=== PATIENT | female | born 1965 | race Two or more races ===

== ENCOUNTER 2019-06-21 14:55 | Outpatient (CLI) | payer MEDICARE, SELFPAY ==
--- NOTE | 2019-06-21 15:30 | XR_ITS ---
WS: [id number] RIGHT CLAVICLE TECHNIQUE: 2 views of the right clavicle. CLINICAL INFORMATION: CLAVICLE PAIN COMPARISON: FINDINGS: Interval removal plate and screw fixation right clavicle. Healed right clavicular fracture with callu s formation. Normal anatomic alignment. Normal AC joint. Intramedullary clavicular fixation nicole XR/[place] [id number] IMPRESSION: Healed right clavicular fracture with intramedullary clavicular fixation nicole
== END 2019-06-21 14:56 | disposition home or self-care (01) ==
LOC: WPI 15:03
PROVIDERS: PCP Nurse Practitioner Family; Visit Provider Nurse Practitioner Family
DX: M25.511 Pain in right shoulder (principal); Z87.81 Personal history of (healed) traumatic fracture
CPT/HCPCS: 73000

== ENCOUNTER → 2019-07-03 12:33 | Outpatient (BNVA) | payer MEDICARE, SELFPAY | PROVIDERS: PCP Nurse Practitioner Family; Visit Provider Nurse Practitioner | DX: F41.1 Generalized anxiety disorder (principal); F42.9 Obsessive-compulsive disorder, unspecified; F60.7 Dependent personality disorder | CPT/HCPCS: 90832; 99214; 99215 ==

== ENCOUNTER 2019-07-30 09:40 | Outpatient (CLI) | payer MEDICARE, SELFPAY ==
--- NOTE | 2019-07-30 09:50 | XR_ITS ---
WS: [id number] RIGHT HAND: 3 VIEW(S) TECHNIQUE: PA, oblique and lateral. HISTORY: THUMB PAIN, RIGHT COMPARISON: None available. No acute fracture or dislocation. No soft tissue or bone abnormality. Mild interphalangeal joint space narrowing. XR/XR hand RT min 3V* [id number] IMPRESSION: Negative RIGHT thumb. No fractures or significant arthritis.
== END 2019-07-30 09:41 | disposition home or self-care (01) ==
LOC: RADWPI 09:44
PROVIDERS: PCP Nurse Practitioner Family; Visit Provider Nurse Practitioner Family
DX: M79.644 Pain in right finger(s) (principal)
CPT/HCPCS: 73130

== ENCOUNTER → 2019-09-03 14:19 | Outpatient (BNVA) | payer MEDICARE, SELFPAY | PROVIDERS: PCP Nurse Practitioner Family; Visit Provider Nurse Practitioner | DX: F42.9 Obsessive-compulsive disorder, unspecified (principal); F60.7 Dependent personality disorder; F41.1 Generalized anxiety disorder | CPT/HCPCS: 99213 ==

== ENCOUNTER 2019-10-21 11:16 | Outpatient (CLI) | payer MEDICARE, SELFPAY ==
[2019-10-21 11:59] LABS: Basophils % 0.5 %; Eosinophils # 0.1 10^3/uL (0.0-0.8); Eosinophils % 3.3 %; Hematocrit 40.4 % (37.0-47.0); Hemoglobin 12.8 g/dL (11.5-15.3); Lymphocytes # 1.7 10^3/uL (0.8-4.8); Lymphocytes % 40.2 %; Mean Corpuscular HGB Conc 31.7 g/dL (30.0-36.0); Mean Corpuscular Hemoglobin 30.3 pg (28.0-34.0); Mean Corpuscular Volume 95.5 fL (81-99); Mean Platelet Volume 10.5 fL (7.4-10.4); Monocytes # 0.3 10^3/uL (0.2-0.9); Neutrophils # 2.1 10^3/uL (1.8-7.7); Neutrophils % 48.5 %; Nucleated Red Blood Cells % 0 %; Platelet Count 305 10^3/cmm (130-400); Red Blood Count 4.23 10^6/uL (4.1-5.3); Red Cell Distribution Width 13.7 % (12.1-15.1); White Blood Count 4.3 10^3/uL (4.0-10.0)
[2019-10-21 12:08] LABS: Albumin Level 4.4 g/dL (3.5-5.2); Anion Gap 13.7 (5-19); Blood Urea Nitrogen 12 mg/dL (6-20); Calcium 10.1 mg/dL (8.5-10.5); Carbon Dioxide 26 mmol/L (22-29); Chloride 105 mmol/L (98-107); Glomerular Filtration Rate 58.2 mL/min (90-130); Glucose 83 mg/dL (65-115); Phosphorus 2.6 mg/dL (2.5-4.5); Potassium 3.7 mmol/L (3.5-5.1); Sodium 141 mmol/L (136-145)
[2019-10-21 12:24] LABS: Creatinine Urine, Random 84 mg/dL (28-217)
[2019-10-21 12:38] LABS: Microalbum Creatinine Ratio Ur 12 mg/dL (0-20); Microalbumin Random Urine 1 ug/dL (0-20)
[2019-10-21 13:55] LABS: Calcium 10.3 mg/dL (8.5-10.5); Parathyroid Hormone 60.3 pg/mL (15-65)
== END 2019-10-21 11:17 | disposition home or self-care (01) ==
LOC: LAB 11:19
PROVIDERS: PCP Nurse Practitioner Family; Visit Provider Internal Medicine Nephrology
DX: N18.3 Chronic kidney disease, stage 3 (moderate) (principal)
CPT/HCPCS: 80069; 82044; 82310; 83970; 85025

== ENCOUNTER → 2019-10-30 08:30 | Outpatient (BNVA) | payer MEDICARE, SELFPAY | PROVIDERS: PCP Nurse Practitioner Family; Visit Provider Nurse Practitioner | DX: F41.1 Generalized anxiety disorder (principal); F60.7 Dependent personality disorder; F42.9 Obsessive-compulsive disorder, unspecified; F43.12 Post-traumatic stress disorder, chronic | CPT/HCPCS: 99213 ==

== ENCOUNTER → 2020-02-06 07:31 | Outpatient (BNVA) | payer MEDICARE, SELFPAY | PROVIDERS: PCP Nurse Practitioner Family; Visit Provider Nurse Practitioner | DX: F42.9 Obsessive-compulsive disorder, unspecified (principal); F60.7 Dependent personality disorder; F41.1 Generalized anxiety disorder | CPT/HCPCS: 99213 ==

== ENCOUNTER 2020-04-04 03:24 | Emergency (ER) | payer MEDICARE, SELFPAY ==
[2020-04-04] VITALS (9 sets, daily range): BP systolic 107–143; BP diastolic 75–87; PULSE 65–100; RESP 18–26; TEMP 36.7; O2SAT 93–100; BMI 30.6
--- NOTE | 2020-04-04 03:39 | XRR_ITS ---
PROCEDURE INFORMATION: Exam: XR Chest, 1 View Exam date and time: 04/04/2020 3:42 AM Age: 54 years old Clinical indication: Shortness of breath; Chest pain; Prior surgery; Surgery type: RT clavicle; Additional info: Cp TECHNIQUE: Imaging protocol: XR of the chest Views: 1 view. COMPARISON: CR Chest 2 views* [id number] 05/10/2017 10:18 AM FINDINGS: Lungs: There is mild prominence of the pulmonary vasculature and some increased interstitial markings present in the lower hemithoraces, findings could represent mild pulmonary edema. Pleural space: Unremarkable. No pleural effusion. No pneumothorax. Heart/Mediastinum: Unremarkable. No cardiomegaly. Bones/joints: An intramedullary nicole is seen within the right clavicle. XR/XR chest 1V portable [id number] IMPRESSION: Mild prominence of the pulmonary vasculature and some increased interstitial markings present bilaterally may represent pulmonary edema.
--- NOTE | 2020-04-04 03:40 | ECG_ITS ---
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 Measurements Intervals [place] Rate: 86 P: 36 OK: 162 QRS: 53 QRSD: 94 T: 41 QT: 385 QTc: 463 Interpretive Statements SINUS RHYTHM POSSIBLE ANTERIOR MYOCARDIAL INFARCTION [30 ms Q WAVE IN V3/V4, OR R < 0.2 mV IN V4], OF INDETERMINATE AGE Compared to ECG 05/10/2017 10:08:46 No significant changes Electronically Signed On 04-04-2020 16:05:58 CDT by Susan Green M.D. [id number]
[2020-04-04 03:46] LABS: Basophils % 0.3 %; Eosinophils # 0.1 10^3/uL (0.0-0.8); Eosinophils % 2.1 %; Hematocrit 39.2 % (37.0-47.0); Hemoglobin 13.3 g/dL (11.5-15.3); Lymphocytes # 2.1 10^3/uL (0.8-4.8); Mean Corpuscular HGB Conc 33.9 g/dL (30.0-36.0); Mean Corpuscular Hemoglobin 31.1 pg (28.0-34.0); Mean Corpuscular Volume 91.8 fL (81-99); Mean Platelet Volume 10.1 fL (7.4-10.4); Monocytes # 0.6 10^3/uL (0.2-0.9); Monocytes % 9.5 %; Neutrophils # 3.35 10^3/uL (1.8-7.7); Neutrophils % 53.9 %; Nucleated Red Blood Cells % 0 %; Platelet Count 377 10^3/cmm (130-400); Red Blood Count 4.27 10^6/uL (4.1-5.3); Red Cell Distribution Width 13.9 % (12.1-15.1); White Blood Count 6.2 10^3/uL (4.0-10.0)
--- NOTE | 2020-04-04 03:55 | W.ED.GENADLT ---
Documented by User: Jorden Templeton DO 04/04/20 18:29 HPI - General Adult General: Chief complaint: General Medical Stated complaint: Multiple Complaints/CP, Back Pain, RUSSELL Time Seen by Provider: 04/04/20 03:39 History of Present Illness: HPI narrative: 4-year-old female presenting with multiple complaints this morning. She states that she had a headache earlier in the day for which she took a migraine shot . She has been battling a headache. Now she states she has more widespread pain, especially in the right side of her chest. There is pain with breathing. No fever or cough Onset (ago): hour(s) Location: head and chest Radiation: non-radiation Severity: severe Quality: stabbing and aching Pain Consistency: constant Associated symptoms: Reports chest pain, dyspnea, headache(s) and nausea; Deny cough, diaphoresis, fevers/chills or vomiting Review of Systems Const: Denies: fever(s) or diaphoresis Card: Reports: chest pain Resp: Reports: dyspnea GI: Reports: nausea; Denies: vomiting : Denies: difficulty voiding or dysuria Neuro: Reports: headache(s) and dizziness; Denies: weakness in extremities PFSH ED PFSH: Medical History (Updated 04/04/20 @ 08:12 by Jaime Crystal DO) Dependent personality disorder Generalized anxiety disorder Obsessive-compulsive disorder, unspecified Social History (Updated 07/03/19 @ 12:57 by Macrina Olivares LPN) Smoking and tobacco status: never smoked Physical Exam Const: GENERAL APPEARANCE: in distress and anxious; not cooperative ORIENTATION/CONSCIOUSNESS: Yes oriented to person, Yes oriented to place and Yes oriented to time HENMT: COMMON NORMALS: normocephalic, external ears normal and Normal external nose present HEAD & SCALP: normocephalic FACE & SINUS: normal facial exam NOSE: Normal external nose present and No nasal discharge present EXTERNAL EAR: Yes external ears normal Eye: COMMON NORMALS: Equal, round and reactive pupils present, EOMs intact bilaterally and conjunctivae normal EYELID: eyelids normal CONJUNCTIVA: Yes conjunctivae normal PUPIL: Yes Equal, round and reactive pupils present Neck/C-Spine: GENERAL: No tracheal deviation Chest: COMMONS NORMALS: normal inspection of the chest CHEST: No tenderness Resp: COMMON NORMALS: clear to auscultation bilaterally EFFORT & INSPECTION: No tachypneic, No respiratory distress, No retractions, No uses accessory muscles and No tracheal deviation AUSCULTATION: clear to auscultation bilaterally, no rhonchi, no wheezes and lung sounds not diminished Cardio: COMMON NORMALS: regular rate and regular rhythm RATE: regular rate RHYTHM: regular rhythm HEART SOUNDS: no murmurs PERIPHERAL PULSES: radial pulses present GI: INSPECTION: No abdominal distension AUSCULTATION: No Hyperactive bowel sounds present and No Hypoactive bowel sounds present PALPATION: No Guarding due to palpation present (GI) and No Rigid due to palpation PERCUSSION: no dullness to percussion and no tympanic to percussion Neuro: SENSORIUM/ORIENTATION: Yes oriented to person, Yes oriented to place and Yes oriented to time Psych: COMMON NORMALS: mental status grossly normal Skin: COMMON NORMALS: no rashes or lesions noted GENERAL SKIN EXAM: no rashes or lesions noted Course Vital Signs: Vital signs: Vital Signs Temperature 98.0 F 04/04/20 03:29 Pulse Rate 66 04/04/20 08:45 Respiratory Rate 18 04/04/20 08:45 Blood Pressure 107/75 04/04/20 08:45 Pulse Oximetry 100 04/04/20 08:45 MDM - General Adult MDM Narrative: Medical decision making narrative: 54-year-old lady presenting with right-sided, poorly localized chest pain. She is very anxious. Pain is incompletely reproducible. Her EKG is normal, showing a normal sinus rhythm with no ST changes. Her chest x-ray is negative. Her white blood cell count is 6.2. Her potassium is significantly low at 3.0. She is repleted here. Her troponin is negative at 0 and 2 hours she was checked out to Dr. Reddy at shift change to follow-up on the second troponin. Lab Data: Labs: Lab Results 04/04/20 04/04/20 04/04/20 Range/Units 03:30 03:30 03:30 WBC 6.2 (4.0-10.0) 10^3/ uL RBC 4.27 (4.1-5.3) 10^6/u L Hgb 13.3 (11.5-15.3) g/dL Hct 39.2 (37.0-47.0) % MCV 91.8 (81-99) fL MCH 31.1 (28.0-34.0) pg MCHC 33.9 (30.0-36.0) g/dL RDW 13.9 (12.1-15.1) % Plt Count 377 (130-400) 10^3/c mm MPV 10.1 (7.4-10.4) fL Neut % (Auto) 53.9 % Lymph % (Auto) 34.0 % [place] % (Auto) 9.5 % Eos % (Auto) 2.1 % Baso % (Auto) 0.3 % Neut # (Auto) 3.35 (1.8-7.7) 10^3/u L Lymph # (Auto) 2.1 (0.8-4.8) 10^3/u L [place] # (Auto) 0.6 (0.2-0.9) 10^3/u L Eos # (Auto) 0.1 (0.0-0.8) 10^3/u L Baso # (Auto) 0.0 (0.0-0.1) 10^3/u L Nucleated RBC % (a uto) 0 % Nucleated RBCs # 0.0 /100WBC D-Dimer 0.34 (0-0.59) ug/mIFE U Sodium 141 (136-145) mmol/L Potassium 3.0 L (3.5-5.1) mmol/L Chloride 104 (98-107) mmol/L Carbon Dioxide 21 L (22-29) mmol/L Anion Gap 19.0 (5-19) BUN 16 (6-20) mg/dL Creatinine 1.2 H (0.5-0.9) mg/dL GFR Calculation 47.0 L (90-130) mL/min Glucose 102 (65-115) mg/dL Calculated Osmolal ity 293 (285-295) mOsm/k g Lactate (0.5-2.2) mmol/L Calcium 10.4 (8.5-10.5) mg/dL Total Bilirubin 0.3 (0.15-1.2) mg/dL AST 43 H (0-32) U/L ALT 46 H (0-33) U/L Alkaline Phosphata se 115 H (35-105) IU/L Creatine Kinase 424 H* (26-192) U/L Troponin T Baselin e (0-10) ng/L Troponin T 120 Min [place] (0-10) ng/L Delta Troponin T (0-10) ABS# C-Reactive Protein 7.6 H (0.0-4.9) mg/L Total Protein 7.2 (6.6-8.7) g/dL Albumin 4.7 (3.5-5.2) g/dL Globulin 2.5 (1.3-4.6) g/dL Procalcitonin 0.06 (0-0.5) ng/mL HCG, Qual (Negative) Urine Color (Yellow) Urine Appearance (CLEAR) Urine pH (5-7) Ur Specific Gravit y (1.005-1.030) Urine Protein (Negative) Urine Glucose (UA) (Normal) Urine Ketones (Negative) Urine Blood (Negative) Urine Nitrate (Negative) Urine Bilirubin (Negative) Urine Urobilinogen (Negative) mg/dL Ur Leukocyte Nevae[place] ase (Negative) Urine RBC (0-2) /hpf Urine WBC (0-5) /hpf Ur Squamous Epith Cells (0-5) /hpf Amorphous Sediment /hpf Urine Bacteria (NONE) /hpf Urine Opiates Scre en (Negative) ng/mL Ur Barbiturates Sc reen (Negative) ng/mL Ur Phencyclidine S crn (Negative) ng/mL Ur Amphetamines Sc reen (Negative) ng/mL U Benzodiazepines Scrn (Negative) ng/mL Urine Cocaine Scre en (Negative) ng/mL U Marijuana (THC) Screen (Negative) ng/mL 04/04/20 04/04/20 04/04/20 Range/Units 03:30 04:04 04:04 WBC (4.0-10.0) 10^3/ uL RBC (4.1-5.3) 10^6/u L Hgb (11.5-15.3) g/dL Hct (37.0-47.0) % MCV (81-99) fL MCH (28.0-34.0) pg MCHC (30.0-36.0) g/dL RDW (12.1-15.1) % Plt Count (130-400) 10^3/c mm MPV (7.4-10.4) fL Neut % (Auto) % Lymph % (Auto) % [place] % (Auto) % Eos % (Auto) % Baso % (Auto) % Neut # (Auto) (1.8-7.7) 10^3/u L Lymph # (Auto) (0.8-4.8) 10^3/u L [place] # (Auto) (0.2-0.9) 10^3/u L Eos # (Auto) (0.0-0.8) 10^3/u L Baso # (Auto) (0.0-0.1) 10^3/u L Nucleated RBC % (a uto) % Nucleated RBCs # /100WBC D-Dimer (0-0.59) ug/mIFE U Sodium (136-145) mmol/L Potassium (3.5-5.1) mmol/L Chloride (98-107) mmol/L Carbon Dioxide (22-29) mmol/L Anion Gap (5-19) BUN (6-20) mg/dL Creatinine (0.5-0.9) mg/dL GFR Calculation (90-130) mL/min Glucose (65-115) mg/dL Calculated Osmolal ity (285-295) mOsm/k g Lactate (0.5-2.2) mmol/L Calcium (8.5-10.5) mg/dL Total Bilirubin (0.15-1.2) mg/dL AST (0-32) U/L ALT (0-33) U/L Alkaline Phosphata se (35-105) IU/L Creatine Kinase (26-192) U/L Troponin T Baselin e 6 (0-10) ng/L Troponin T 120 Min [place] (0-10) ng/L Delta Troponin T (0-10) ABS# C-Reactive Protein (0.0-4.9) mg/L Total Protein (6.6-8.7) g/dL Albumin (3.5-5.2) g/dL Globulin (1.3-4.6) g/dL Procalcitonin (0-0.5) ng/mL HCG, Qual Negative (Negative) Urine Color Yellow (Yellow) Urine Appearance Sl cloudy A (CLEAR) Urine pH 7 (5-7) Ur Specific Gravit y 1.010 (1.005-1.030) Urine Protein Neg (Negative) Urine Glucose (UA) Norm (Normal) Urine Ketones Negative (Negative) Urine Blood 2+ H (Negative) Urine Nitrate Negative (Negative) Urine Bilirubin Neg (Negative) Urine Urobilinogen Norm (Negative) mg/dL Ur Leukocyte [place]ae[place] ase Negative (Negative) Urine RBC 0-4 H (0-2) /hpf Urine WBC 0-4 H (0-5) /hpf Ur Squamous Epith Cells 5-10 H (0-5) /hpf Amorphous Sediment 3+ /hpf Urine Bacteria Trace (NONE) /hpf Urine Opiates Scre en (Negative) ng/mL Ur Barbiturates Sc reen (Negative) ng/mL Ur Phencyclidine S crn (Negative) ng/mL Ur Amphetamines Sc reen (Negative) ng/mL U Benzodiazepines Scrn (Negative) ng/mL Urine Cocaine Scre en (Negative) ng/mL U Marijuana (THC) Screen (Negative) ng/mL 04/04/20 04/04/20 04/04/20 Range/Units 04:04 04:11 06:12 WBC (4.0-10.0) 10^3/ uL RBC (4.1-5.3) 10^6/u L Hgb (11.5-15.3) g/dL Hct (37.0-47.0) % MCV (81-99) fL MCH (28.0-34.0) pg MCHC (30.0-36.0) g/dL RDW (12.1-15.1) % Plt Count (130-400) 10^3/c mm MPV (7.4-10.4) fL Neut % (Auto) % Lymph % (Auto) % [place] % (Auto) % Eos % (Auto) % Baso % (Auto) % Neut # (Auto) (1.8-7.7) 10^3/u L Lymph # (Auto) (0.8-4.8) 10^3/u L [place] # (Auto) (0.2-0.9) 10^3/u L Eos # (Auto) (0.0-0.8) 10^3/u L Baso # (Auto) (0.0-0.1) 10^3/u L Nucleated RBC % (a uto) % Nucleated RBCs # /100WBC D-Dimer (0-0.59) ug/mIFE U Sodium (136-145) mmol/L Potassium (3.5-5.1) mmol/L Chloride (98-107) mmol/L Carbon Dioxide (22-29) mmol/L Anion Gap (5-19) BUN (6-20) mg/dL Creatinine (0.5-0.9) mg/dL GFR Calculation (90-130) mL/min Glucose (65-115) mg/dL Calculated Osmolal ity (285-295) mOsm/k g Lactate 2.7 H (0.5-2.2) mmol/L Calcium (8.5-10.5) mg/dL Total Bilirubin (0.15-1.2) mg/dL AST (0-32) U/L ALT (0-33) U/L Alkaline Phosphata se (35-105) IU/L Creatine Kinase (26-192) U/L Troponin T Baselin e (0-10) ng/L Troponin T 120 Min [place] 6.00 (0-10) ng/L Delta Troponin T 0 (0-10) ABS# C-Reactive Protein (0.0-4.9) mg/L Total Protein (6.6-8.7) g/dL Albumin (3.5-5.2) g/dL Globulin (1.3-4.6) g/dL Procalcitonin (0-0.5) ng/mL HCG, Qual (Negative) Urine Color (Yellow) Urine Appearance (CLEAR) Urine pH (5-7) Ur Specific Gravit y (1.005-1.030) Urine Protein (Negative) Urine Glucose (UA) (Normal) Urine Ketones (Negative) Urine Blood (Negative) Urine Nitrate (Negative) Urine Bilirubin (Negative) Urine Urobilinogen (Negative) mg/dL Ur Leukocyte Nevae[place] ase (Negative) Urine RBC (0-2) /hpf Urine WBC (0-5) /hpf Ur Squamous Epith Cells (0-5) /hpf Amorphous Sediment /hpf Urine Bacteria (NONE) /hpf Urine Opiates Scre en Negative (Negative) ng/mL Ur Barbiturates Sc reen Negative (Negative) ng/mL Ur Phencyclidine S crn Negative (Negative) ng/mL Ur Amphetamines Sc reen Negative (Negative) ng/mL U Benzodiazepines Scrn Negative (Negative) ng/mL Urine Cocaine Scre en Negative (Negative) ng/mL U Marijuana (THC) Screen Negative (Negative) ng/mL 04/04/20 Range/Units 07:17 WBC (4.0-10.0) 10^3/ uL RBC (4.1-5.3) 10^6/u L Hgb (11.5-15.3) g/dL Hct (37.0-47.0) % MCV (81-99) fL MCH (28.0-34.0) pg MCHC (30.0-36.0) g/dL RDW (12.1-15.1) % Plt Count (130-400) 10^3/c mm MPV (7.4-10.4) fL Neut % (Auto) % Lymph % (Auto) % [place] % (Auto) % Eos % (Auto) % Baso % (Auto) % Neut # (Auto) (1.8-7.7) 10^3/u L Lymph # (Auto) (0.8-4.8) 10^3/u L [place] # (Auto) (0.2-0.9) 10^3/u L Eos # (Auto) (0.0-0.8) 10^3/u L Baso # (Auto) (0.0-0.1) 10^3/u L Nucleated RBC % (a uto) % Nucleated RBCs # /100WBC D-Dimer (0-0.59) ug/mIFE U Sodium (136-145) mmol/L Potassium (3.5-5.1) mmol/L Chloride (98-107) mmol/L Carbon Dioxide (22-29) mmol/L Anion Gap (5-19) BUN (6-20) mg/dL Creatinine (0.5-0.9) mg/dL GFR Calculation (90-130) mL/min Glucose (65-115) mg/dL Calculated Osmolal ity (285-295) mOsm/k g Lactate 1.1 (0.5-2.2) mmol/L Calcium (8.5-10.5) mg/dL Total Bilirubin (0.15-1.2) mg/dL AST (0-32) U/L ALT (0-33) U/L Alkaline Phosphata se (35-105) IU/L Creatine Kinase (26-192) U/L Troponin T Baselin e (0-10) ng/L Troponin T 120 Min [place] (0-10) ng/L Delta Troponin T (0-10) ABS# C-Reactive Protein (0.0-4.9) mg/L Total Protein (6.6-8.7) g/dL Albumin (3.5-5.2) g/dL Globulin (1.3-4.6) g/dL Procalcitonin (0-0.5) ng/mL HCG, Qual (Negative) Urine Color (Yellow) Urine Appearance (CLEAR) Urine pH (5-7) Ur Specific Gravit y (1.005-1.030) Urine Protein (Negative) Urine Glucose (UA) (Normal) Urine Ketones (Negative) Urine Blood (Negative) Urine Nitrate (Negative) Urine Bilirubin (Negative) Urine Urobilinogen (Negative) mg/dL Ur Leukocyte Nevae[place] ase (Negative) Urine RBC (0-2) /hpf Urine WBC (0-5) /hpf Ur Squamous Epith Cells (0-5) /hpf Amorphous Sediment /hpf Urine Bacteria (NONE) /hpf Urine Opiates Scre en (Negative) ng/mL Ur Barbiturates Sc reen (Negative) ng/mL Ur Phencyclidine S crn (Negative) ng/mL Ur Amphetamines Sc reen (Negative) ng/mL U Benzodiazepines Scrn (Negative) ng/mL Urine Cocaine Scre en (Negative) ng/mL U Marijuana (THC) Screen (Negative) ng/mL Discharge Plan Discharge Patient Disposition: Home Clinical Impression: Pleurisy Condition: Stable Prescriptions: New hydrocodone-acetaminophen 5-325 mg tablet 1 tab PO Q6H PRN (Reason: pain) Qty: 15 RF: 0 Medrol (John) 4 mg tablets,dose pack See Rx Instructions .ROUTE .COMPLEX Qty: 21 RF: 0 No Action allopurinol 100 mg tablet 100 mg PO DAILY RF: 0 cyclobenzaprine 10 mg tablet 10 mg PO DAILY PRNRF: 0 ropinirole 2 mg tablet extended release 24 hr 2 mg PO BID RF: 0 sumatriptan succinate [Imitrex] 6 mg/0.5 mL solution 6 mg SUBCUT ONCE PRNRF: 0 furosemide [Lasix] 40 mg tablet 40 mg PO QAM RF: 0 lamotrigine [Lamictal] 100 mg tablet 150 mg PO DAILY Qty: 135 RF: 0 clonazepam 0.5 mg tablet 0.5 mg PO BID Qty: 60 RF: 1 aripiprazole [Abilify] 10 mg tablet 10 mg PO DAILY Qty: 90 RF: 0 fluoxetine [Prozac] 40 mg capsule 40 mg PO QAM Qty: 90 RF: 0 trazodone 50 mg tablet 50 mg PO .hs Qty: 30 RF: 1 Discharge Orders: Discharge Order (Routine); Ordered 04/04/20 Ordered By: Jaime Crystal Referrals: Priyank Stafford NP [Primary Care Provider] - Discharge Diet: Usual diet Discharge Activity: Increase activity as tolerated Activity Restrictions/Additional Instructions: Return if you have further problems. Follow-up with your primary care doctor in the next 3 to 4 days. Discharge Date/Time: 04/04/20 08:47 Sign Out Sign Out Data: Patient Sign Out occurred on 04/04/20 at 05:23. Patient's care was discussed, and care was transferred from to Jaime Crystal DO. Coding Level of Care Code ED Client Relationship Consultant for Chg Fwd Exam Comprehensive Documented by User: Jaime Crystal DO 04/06/20 06:40 HPI - General Adult General: Chief complaint: General Medical Stated complaint: Multiple Complaints/CP, Back Pain, RUSSELL Time Seen by Provider: 04/04/20 03:39 PFSH ED PFSH: Medical History (Updated 04/04/20 @ 08:12 by Jaime Crystal DO) Dependent personality disorder Generalized anxiety disorder Obsessive-compulsive disorder, unspecified Social History (Updated 07/03/19 @ 12:57 by Macrina Olivares LPN) Smoking and tobacco status: never smoked Course Vital Signs: Vital signs: Vital Signs Temperature 98.0 F 04/04/20 03:29 Pulse Rate 66 04/04/20 08:45 Respiratory Rate 18 04/04/20 08:45 Blood Pressure 107/75 04/04/20 08:45 Pulse Oximetry 100 04/04/20 08:45 MDM - General Adult MDM Narrative: Medical decision making narrative: Troponin negative. Patient has continued pain that is worse with deep inspiration on the right side. Will discharge home with pain medications Medrol Dosepak and have her follow-up with her doctor early next week return if worsens. Lab Data: Labs: Lab Results 04/04/20 04/04/20 04/04/20 Range/Units 03:30 03:30 03:30 WBC 6.2 (4.0-10.0) 10^3/ uL RBC 4.27 (4.1-5.3) 10^6/u L Hgb 13.3 (11.5-15.3) g/dL Hct 39.2 (37.0-47.0) % MCV 91.8 (81-99) fL MCH 31.1 (28.0-34.0) pg MCHC 33.9 (30.0-36.0) g/dL RDW 13.9 (12.1-15.1) % Plt Count 377 (130-400) 10^3/c mm MPV 10.1 (7.4-10.4) fL Neut % (Auto) 53.9 % Lymph % (Auto) 34.0 % [place] % (Auto) 9.5 % Eos % (Auto) 2.1 % Baso % (Auto) 0.3 % Neut # (Auto) 3.35 (1.8-7.7) 10^3/u L Lymph # (Auto) 2.1 (0.8-4.8) 10^3/u L [place] # (Auto) 0.6 (0.2-0.9) 10^3/u L Eos # (Auto) 0.1 (0.0-0.8) 10^3/u L Baso # (Auto) 0.0 (0.0-0.1) 10^3/u L Nucleated RBC % (a uto) 0 % Nucleated RBCs # 0.0 /100WBC D-Dimer 0.34 (0-0.59) ug/mIFE U Sodium 141 (136-145) mmol/L Potassium 3.0 L (3.5-5.1) mmol/L Chloride 104 (98-107) mmol/L Carbon Dioxide 21 L (22-29) mmol/L Anion Gap 19.0 (5-19) BUN 16 (6-20) mg/dL Creatinine 1.2 H (0.5-0.9) mg/dL GFR Calculation 47.0 L (90-130) mL/min Glucose 102 (65-115) mg/dL Calculated Osmolal ity 293 (285-295) mOsm/k g Lactate (0.5-2.2) mmol/L Calcium 10.4 (8.5-10.5) mg/dL Total Bilirubin 0.3 (0.15-1.2) mg/dL AST 43 H (0-32) U/L ALT 46 H (0-33) U/L Alkaline Phosphata se 115 H (35-105) IU/L Creatine Kinase 424 H* (26-192) U/L Troponin T Baselin e (0-10) ng/L Troponin T 120 Min [place] (0-10) ng/L Delta Troponin T (0-10) ABS# C-Reactive Protein 7.6 H (0.0-4.9) mg/L Total Protein 7.2 (6.6-8.7) g/dL Albumin 4.7 (3.5-5.2) g/dL Globulin 2.5 (1.3-4.6) g/dL Procalcitonin 0.06 (0-0.5) ng/mL HCG, Qual (Negative) Urine Color (Yellow) Urine Appearance (CLEAR) Urine pH (5-7) Ur Specific Gravit y (1.005-1.030) Urine Protein (Negative) Urine Glucose (UA) (Normal) Urine Ketones (Negative) Urine Blood (Negative) Urine Nitrate (Negative) Urine Bilirubin (Negative) Urine Urobilinogen (Negative) mg/dL Ur Leukocyte Nevae[place] ase (Negative) Urine RBC (0-2) /hpf Urine WBC (0-5) /hpf Ur Squamous Epith Cells (0-5) /hpf Amorphous Sediment /hpf Urine Bacteria (NONE) /hpf Urine Opiates Scre en (Negative) ng/mL Ur Barbiturates Sc reen (Negative) ng/mL Ur Phencyclidine S crn (Negative) ng/mL Ur Amphetamines Sc reen (Negative) ng/mL U Benzodiazepines Scrn (Negative) ng/mL Urine Cocaine Scre en (Negative) ng/mL U Marijuana (THC) Screen (Negative) ng/mL 04/04/20 04/04/20 04/04/20 Range/Units 03:30 04:04 04:04 WBC (4.0-10.0) 10^3/ uL RBC (4.1-5.3) 10^6/u L Hgb (11.5-15.3) g/dL Hct (37.0-47.0) % MCV (81-99) fL MCH (28.0-34.0) pg MCHC (30.0-36.0) g/dL RDW (12.1-15.1) % Plt Count (130-400) 10^3/c mm MPV (7.4-10.4) fL Neut % (Auto) % Lymph % (Auto) % [place] % (Auto) % Eos % (Auto) % Baso % (Auto) % Neut # (Auto) (1.8-7.7) 10^3/u L Lymph # (Auto) (0.8-4.8) 10^3/u L [place] # (Auto) (0.2-0.9) 10^3/u L Eos # (Auto) (0.0-0.8) 10^3/u L Baso # (Auto) (0.0-0.1) 10^3/u L Nucleated RBC % (a uto) % Nucleated RBCs # /100WBC D-Dimer (0-0.59) ug/mIFE U Sodium (136-145) mmol/L Potassium (3.5-5.1) mmol/L Chloride (98-107) mmol/L Carbon Dioxide (22-29) mmol/L Anion Gap (5-19) BUN (6-20) mg/dL Creatinine (0.5-0.9) mg/dL GFR Calculation (90-130) mL/min Glucose (65-115) mg/dL Calculated Osmolal ity (285-295) mOsm/k g Lactate (0.5-2.2) mmol/L Calcium (8.5-10.5) mg/dL Total Bilirubin (0.15-1.2) mg/dL AST (0-32) U/L ALT (0-33) U/L Alkaline Phosphata se (35-105) IU/L Creatine Kinase (26-192) U/L Troponin T Baselin e 6 (0-10) ng/L Troponin T 120 Min [place] (0-10) ng/L Delta Troponin T (0-10) ABS# C-Reactive Protein (0.0-4.9) mg/L Total Protein (6.6-8.7) g/dL Albumin (3.5-5.2) g/dL Globulin (1.3-4.6) g/dL Procalcitonin (0-0.5) ng/mL HCG, Qual Negative (Negative) Urine Color Yellow (Yellow) Urine Appearance Sl cloudy A (CLEAR) Urine pH 7 (5-7) Ur Specific Gravit y 1.010 (1.005-1.030) Urine Protein Neg (Negative) Urine Glucose (UA) Norm (Normal) Urine Ketones Negative (Negative) Urine Blood 2+ H (Negative) Urine Nitrate Negative (Negative) Urine Bilirubin Neg (Negative) Urine Urobilinogen Norm (Negative) mg/dL Ur Leukocyte Nevae[place] ase Negative (Negative) Urine RBC 0-4 H (0-2) /hpf Urine WBC 0-4 H (0-5) /hpf Ur Squamous Epith Cells 5-10 H (0-5) /hpf Amorphous Sediment 3+ /hpf Urine Bacteria Trace (NONE) /hpf Urine Opiates Scre en (Negative) ng/mL Ur Barbiturates Sc reen (Negative) ng/mL Ur Phencyclidine S crn (Negative) ng/mL Ur Amphetamines Sc reen (Negative) ng/mL U Benzodiazepines Scrn (Negative) ng/mL Urine Cocaine Scre en (Negative) ng/mL U Marijuana (THC) Screen (Negative) ng/mL 04/04/20 04/04/20 04/04/20 Range/Units 04:04 04:11 06:12 WBC (4.0-10.0) 10^3/ uL RBC (4.1-5.3) 10^6/u L Hgb (11.5-15.3) g/dL Hct (37.0-47.0) % MCV (81-99) fL MCH (28.0-34.0) pg MCHC (30.0-36.0) g/dL RDW (12.1-15.1) % Plt Count (130-400) 10^3/c mm MPV (7.4-10.4) fL Neut % (Auto) % Lymph % (Auto) % [place] % (Auto) % Eos % (Auto) % Baso % (Auto) % Neut # (Auto) (1.8-7.7) 10^3/u L Lymph # (Auto) (0.8-4.8) 10^3/u L [place] # (Auto) (0.2-0.9) 10^3/u L Eos # (Auto) (0.0-0.8) 10^3/u L Baso # (Auto) (0.0-0.1) 10^3/u L Nucleated RBC % (a uto) % Nucleated RBCs # /100WBC D-Dimer (0-0.59) ug/mIFE U Sodium (136-145) mmol/L Potassium (3.5-5.1) mmol/L Chloride (98-107) mmol/L Carbon Dioxide (22-29) mmol/L Anion Gap (5-19) BUN (6-20) mg/dL Creatinine (0.5-0.9) mg/dL GFR Calculation (90-130) mL/min Glucose (65-115) mg/dL Calculated Osmolal ity (285-295) mOsm/k g Lactate 2.7 H (0.5-2.2) mmol/L Calcium (8.5-10.5) mg/dL Total Bilirubin (0.15-1.2) mg/dL AST (0-32) U/L ALT (0-33) U/L Alkaline Phosphata se (35-105) IU/L Creatine Kinase (26-192) U/L Troponin T Baselin e (0-10) ng/L Troponin T 120 Min [place] 6.00 (0-10) ng/L Delta Troponin T 0 (0-10) ABS# C-Reactive Protein (0.0-4.9) mg/L Total Protein (6.6-8.7) g/dL Albumin (3.5-5.2) g/dL Globulin (1.3-4.6) g/dL Procalcitonin (0-0.5) ng/mL HCG, Qual (Negative) Urine Color (Yellow) Urine Appearance (CLEAR) Urine pH (5-7) Ur Specific Gravit y (1.005-1.030) Urine Protein (Negative) Urine Glucose (UA) (Normal) Urine Ketones (Negative) Urine Blood (Negative) Urine Nitrate (Negative) Urine Bilirubin (Negative) Urine Urobilinogen (Negative) mg/dL Ur Leukocyte [place] (Negative) Urine RBC (0-2) /hpf Urine WBC (0-5) /hpf Ur Squamous Epith Cells (0-5) /hpf Amorphous Sediment /hpf Urine Bacteria (NONE) /hpf Urine Opiates Scre en Negative (Negative) ng/mL Ur Barbiturates Sc reen Negative (Negative) ng/mL Ur Phencyclidine S crn Negative (Negative) ng/mL Ur Amphetamines Sc reen Negative (Negative) ng/mL U Benzodiazepines Scrn Negative (Negative) ng/mL Urine Cocaine Scre en Negative (Negative) ng/mL U Marijuana (THC) Screen Negative (Negative) ng/mL 10/20 Range/Units 07:17 WBC (4.0-10.0) 10^3/ uL RBC (4.1-5.3) 10^6/u L Hgb (11.5-15.3) g/dL Hct (37.0-47.0) % MCV (81-99) fL MCH (28.0-34.0) pg MCHC (30.0-36.0) g/dL RDW (12.1-15.1) % Plt Count (130-400) 10^3/c mm MPV (7.4-10.4) fL Neut % (Auto) % Lymph % (Auto) % [place] % (Auto) % Eos % (Auto) % Baso % (Auto) % Neut # (Auto) (1.8-7.7) 10^3/u L Lymph # (Auto) (0.8-4.8) 10^3/u L [place] # (Auto) (0.2-0.9) 10^3/u L Eos # (Auto) (0.0-0.8) 10^3/u L Baso # (Auto) (0.0-0.1) 10^3/u L Nucleated RBC % (a uto) % Nucleated RBCs # /100WBC D-Dimer (0-0.59) ug/mIFE U Sodium (136-145) mmol/L Potassium (3.5-5.1) mmol/L Chloride (98-107) mmol/L Carbon Dioxide (22-29) mmol/L Anion Gap (5-19) BUN (6-20) mg/dL Creatinine (0.5-0.9) mg/dL GFR Calculation (90-130) mL/min Glucose (65-115) mg/dL Calculated Osmolal ity (285-295) mOsm/k g Lactate 1.1 (0.5-2.2) mmol/L Calcium (8.5-10.5) mg/dL Total Bilirubin (0.15-1.2) mg/dL AST (0-32) U/L ALT (0-33) U/L Alkaline Phosphata se (35-105) IU/L Creatine Kinase (26-192) U/L Troponin T Baselin e (0-10) ng/L Troponin T 120 Min [place] (0-10) ng/L Delta Troponin T (0-10) ABS# C-Reactive Protein (0.0-4.9) mg/L Total Protein (6.6-8.7) g/dL Albumin (3.5-5.2) g/dL Globulin (1.3-4.6) g/dL Procalcitonin (0-0.5) ng/mL HCG, Qual (Negative) Urine Color (Yellow) Urine Appearance (CLEAR) Urine pH (5-7) Ur Specific Gravit y (1.005-1.030) Urine Protein (Negative) Urine Glucose (UA) (Normal) Urine Ketones (Negative) Urine Blood (Negative) Urine Nitrate (Negative) Urine Bilirubin (Negative) Urine Urobilinogen (Negative) mg/dL Ur Leukocyte [place] (Negative) Urine RBC (0-2) /hpf Urine WBC (0-5) /hpf Ur Squamous Epith Cells (0-5) /hpf Amorphous Sediment /hpf Urine Bacteria (NONE) /hpf Urine Opiates Scre en (Negative) ng/mL Ur Barbiturates Sc reen (Negative) ng/mL Ur Phencyclidine S crn (Negative) ng/mL Ur Amphetamines Sc reen (Negative) ng/mL U Benzodiazepines Scrn (Negative) ng/mL Urine Cocaine Scre en (Negative) ng/mL U Marijuana (THC) Screen (Negative) ng/mL Discharge Plan Discharge Patient Disposition: Home Clinical Impression: Pleurisy Condition: Stable Prescriptions: New hydrocodone-acetaminophen 5-325 mg tablet 1 tab PO Q6H PRN (Reason: pain) Qty: 15 RF: 0 Medrol (John) 4 mg tablets,dose pack See Rx Instructions .ROUTE .COMPLEX Qty: 21 RF: 0 No Action allopurinol 100 mg tablet 100 mg PO DAILY RF: 0 cyclobenzaprine 10 mg tablet 10 mg PO DAILY PRNRF: 0 ropinirole 2 mg tablet extended release 24 hr 2 mg PO BID RF: 0 sumatriptan succinate [Imitrex] 6 mg/0.5 mL solution 6 mg SUBCUT ONCE PRNRF: 0 furosemide [Lasix] 40 mg tablet 40 mg PO QAM RF: 0 lamotrigine [Lamictal] 100 mg tablet 150 mg PO DAILY Qty: 135 RF: 0 clonazepam 0.5 mg tablet 0.5 mg PO BID Qty: 60 RF: 1 aripiprazole [Abilify] 10 mg tablet 10 mg PO DAILY Qty: 90 RF: 0 fluoxetine [Prozac] 40 mg capsule 40 mg PO QAM Qty: 90 RF: 0 trazodone 50 mg tablet 50 mg PO .hs Qty: 30 RF: 1 Discharge Orders: Discharge Order (Routine); Ordered 04/04/20 Ordered By: Jaime Crystal Referrals: Priyank Stafford NP [Primary Care Provider] - Discharge Diet: Usual diet Discharge Activity: Increase activity as tolerated Activity Restrictions/Additional Instructions: Return if you have further problems. Follow-up with your primary care doctor in the next 3 to 4 days. Discharge Date/Time: 04/04/20 08:47 Sign Out Sign Out Data: Patient Sign Out occurred on 04/04/20 at 05:23. Patient's care was discussed, and care was transferred from to Jaime Crystal DO. Coding Level of Care Code ED Client Relationship Consultant for Carissa Fwd Exam Comprehensive
[2020-04-04 03:58] LABS: D Dimer 0.34 ug/mIFEU (0-0.59)
[2020-04-04 04:02] LABS: Troponin(5th) Baseline 6 ng/L (0-10)
[2020-04-04 04:07] LABS: Procalcitonin 0.06 ng/mL (0-0.5)
[2020-04-04 04:15] LABS: Add Urine Microscopic? YES; Bilirubin Urine Neg (Negative); Blood Urine 2+ (Negative); Glucose Urine UA Norm (Normal); HCG Qualitative Urine. Negative (Negative); Ketones Urine Negative (Negative); Leukocyte Esterase Urine Negative (Negative); Nitrate Urine Negative (Negative); Protein Urine Neg (Negative); Urine Color Yellow (Yellow); Urobilinogen Urine Norm (Negative); pH Urine 7 (5-7)
[2020-04-04] MEDS: morphine 4 mg/mL SDV 1 mL IVP ×2 (04:15→08:00)
[2020-04-04 04:16] LABS: RBC Urine 0-4 /hpf (0-2); WBC Urine 0-4 /hpf (0-5)
[2020-04-04] MEDS: LORazepam 2 mg/mL INJ 1 mL 1 MG IVP (04:16)
[2020-04-04 04:17] LABS: Add Urine Culture? No; Amorphous Sediment Urine 3+ /hpf; Bacteria Urine TRACE /hpf
[2020-04-04 04:18] LABS: Alanine Aminotransferase 46 U/L (0-33); Albumin Level 4.7 g/dL (3.5-5.2); Alkaline Phosphatase 115 IU/L (35-105); Aspartate Amino Transferase 43 U/L (0-32); Blood Urea Nitrogen 16 mg/dL (6-20); C Reactive Protein 7.6 mg/L (0.0-4.9); Calcium 10.4 mg/dL (8.5-10.5); Carbon Dioxide 21 mmol/L (22-29); Chloride 104 mmol/L (98-107); Globulin 2.5 g/dL (1.3-4.6); Glucose 102 mg/dL (65-115); Osmolality Calculated 293 mOsm/kg (285-295); Sodium 141 mmol/L (136-145); Total Bilirubin 0.3 mg/dL (0.15-1.2); Total Protein 7.2 g/dL (6.6-8.7)
[2020-04-04 04:20] LABS: Creatine Phosphokinase 424 U/L (26-192)
[2020-04-04 04:21] LABS: Amphetamines Screen Urine Negative (Negative); Barbiturates Screen Urine Negative (Negative); Benzodiazepines Screen Urine Negative (Negative); Cocaine Screen Urine Negative (Negative); Opiate Screen Urine Negative (Negative); PCP Screen Urine Negative (Negative); THC Screen Urine Negative (Negative)
[2020-04-04] MEDS: potassium chloride oral liq 20 mEq/15 mL UDC 40 MEQ PO (04:40)
[2020-04-04 04:47] LABS: Lactate (Lactic Acid level) 2.7 mmol/L (0.5-2.2)
[2020-04-04] MEDS: sodium chlor 0.9% + KCl 40 mEq 40 MEQ/1,000 ML BAG 999 MEQ IV (04:56)
--- NOTE | 2020-04-04 05:40 | ECG_ITS ---
[facility] Test Date: 2020-04-04 Pat Name: Gabi Campbell Department: Room: Gender: Female [place] Resistance: : 1965 Requested By: Jorden Baumann Order Number: [id number] Dustin MD: Susan Green M.D. Measurements Intervals [place] Rate: 61 P: 49 OH: 147 QRS: 25 QRSD: 79 T: 54 QT: 427 QTc: 431 Interpretive Statements SINUS RHYTHM WITH OCCASIONAL SUPRAVENTRICULAR PREMATURE COMPLEXES INDETERMINATE AXIS LOW QRS VOLTAGE IN PRECORDIAL LEADS [QRS DEFLECTION < 1.0 mV IN CHEST LEADS] PATTERN CONSISTENT WITH PULMONARY DISEASE Compared to ECG 05/10/2017 10:08:46 Indeterminate axis now present Low QRS voltage now present Myocardial infarct finding no longer present Electronically Signed On 04-04-2020 18:34:47 CDT by Susan Green M.D. [email or web address]
[2020-04-04 06:37] LABS: Troponin 5 2HR Delta 0 ABS# (0-10)
[2020-04-04 07:42] LABS: Lactate (Lactic Acid level) 1.1 mmol/L (0.5-2.2)
== END 2020-04-04 08:47 | disposition home or self-care (01) ==
PROVIDERS: Emergency Medicine; Emergency Provider Family Medicine; PCP Nurse Practitioner Family
DX: R09.1 Pleurisy (principal)
CPT/HCPCS: 12345; 71045; 80053; 80306; 81001; 81025; 82550; 83605; 84145; 84484; 85025; 85378; 86140; 93005; 96365; 96366; 96375; 96376; 99284; J2060; J2270

== ENCOUNTER → 2020-04-10 13:21 | Outpatient (BNVA) | payer MEDICARE, SELFPAY | PROVIDERS: PCP Nurse Practitioner Family; Visit Provider Nurse Practitioner Family | DX: Z11.59 Encounter for screening for other viral diseases (principal) | CPT/HCPCS: 87635 ==

== ENCOUNTER 2020-04-11 10:22 | Emergency (ER) | payer MEDICARE, SELFPAY ==
[2020-04-11 11:23] VITALS: BP 122/83; PULSE 76; RESP 18; TEMP 36.2; O2SAT 98; BMI 31.8
--- NOTE | 2020-04-11 11:50 | W.ED.GENADLT ---
HPI - General Adult General: Chief complaint: General Medical Stated complaint: RIGHT SIDE PAIN W/ BREATHING Time Seen by Provider: 04/11/20 11:50 History of Present Illness: HPI narrative: Patient is a 54-year-old female who comes to the ED with right-sided pleuritic pain. Patient was seen here 04/04 for same complaint and was diagnosed with pleurisy and given a Medrol Dosepak. Patient was recently seen at [facility] yesterday and Covid testing was performed and is pending. Patient says that the right-sided pleuritic pain came back after she stopped taking the steroids. Pain rated a 7 out of 10 currently. She denies any shortness of breath and is complaining of having a little bit of a dry cough. Denies fever, chills, nasal drainage, sore throat. Patient is scheduled to see spring floor service worker this coming Monday and is also going to see her device test engineer in [place] for the next 2 weeks as well. Associated symptoms: Deny chest pain, dyspnea, headache(s), nausea, rash, palpitations or vomiting Review of Systems Const: Denies: fever(s), chills or fatigue Eyes: Denies: change in vision or eye discomfort ENMT: Denies: throat pain, odynophagia, nasal discharge or nasal congestion Card: Denies: chest pain, palpitations, edema, swelling of feet/ankles, dyspnea on exertion or orthopnea Resp: Reports: non-productive cough and pain on inspiration (right sided pleuritic pain); Denies: dyspnea, productive cough or wheezing GI: Denies: abdominal pain, nausea, vomiting, diarrhea, constipation or hematochezia : Denies: flank pain, dysuria or hematuria Musc: Denies: neck pain, back pain or extremity swelling Skin/Breast: Denies: rash or new lesions Neuro: Denies: headache(s), numbness in extremities or weakness in extremities PFSH ED PFSH: Medical History Dependent personality disorder Generalized anxiety disorder Obsessive-compulsive disorder, unspecified Social History Smoking and tobacco status: never smoked Physical Exam Const: COMMON NORMALS: no acute distress, patient oriented x3, healthy appearing and alert GENERAL APPEARANCE: cooperative and comfortable HENMT: COMMON NORMALS: normocephalic HEAD & SCALP: normocephalic MOUTH: Normal oral and palatal mucosa present THROAT: posterior oropharynx normal and uvula midline Neck/C-Spine: COMMON NORMALS: supple GENERAL: Yes normal visual inspection Chest: COMMONS NORMALS: normal palpation of entire chest wall Resp: COMMON NORMALS: normal respiratory effort, No retractions, No use of accessory muscles and clear to auscultation bilaterally AUSCULTATION: clear to auscultation bilaterally Cardio: COMMON NORMALS: regular rate, regular rhythm, S1 normal heart sound present, S2 normal heart sound present, No gallops present (Cardio), No clicks present (Cardio), No murmurs present (Cardio) and Peripheral pulses 2+ throughout RATE: regular rate RHYTHM: regular rhythm HEART SOUNDS: S1 normal heart sound present and S2 normal heart sound present PERIPHERAL PULSES: Peripheral pulses 2+ throughout GI: COMMON NORMALS: Normal to inspection, nondistended, normoactive bowel sounds present, Soft to palpation, non-tender and no masses PALPATION: Yes Soft to palpation : COMMON NORMALS: Yes no CVA tenderness BLADDER/KIDNEY EXAM: Yes no CVA tenderness Back/Pelvis: COMMON NORMALS: no CVA tenderness Extremity: COMMON NORMALS: normal to inspection Neuro: COMMON NORMALS: patient oriented x3 and moves all extremities SENSORIUM/ORIENTATION: Yes alert Skin: GENERAL SKIN EXAM: dry skin Course Vital Signs: Vital signs: Vital Signs Temperature 97.2 F L 04/11/20 11:23 Pulse Rate 72 04/11/20 13:38 Respiratory Rate 16 04/11/20 13:38 Blood Pressure 112/80 04/11/20 13:38 Pulse Oximetry 98 04/11/20 13:38 MDM - General Adult MDM Narrative: Medical decision making narrative: Patient is a 54-year-old female comes to the ED for right-sided pleuritic pain. She was seen here in the ED on 04/04 for same complaint and diagnosed with pleurisy. Patient has appointment scheduled with spring floor service worker this coming Monday to be evaluated. Right side ribs was nontender upon palpation. Lungs were clear to auscultation bilaterally. No signs of respiratory distress. Respirations 16, pulse 72 and O2 saturation 90% on room air. Chest x-ray was performed and showed no acute findings. Patient was diagnosed with pleurisy and sent home with a prescription for Medrol Dosepak. She was told to follow-up at her scheduled spring floor service worker appointment on Monday to be further evaluated. Return to ED precautions given. Patient understood and agreed with plan. Lab Data: Labs: Lab Results 04/11/20 Range/Units 12:03 Urine Color Straw (Yellow) Urine Appearance Clear (CLEAR) Urine pH 8 H (5-7) Ur Specific Gravit y 1.010 (1.005-1.030) Urine Protein Neg (Negative) Urine Glucose (UA) Norm (Normal) Urine Ketones Negative (Negative) Urine Blood Neg (Negative) Urine Nitrate Negative (Negative) Urine Bilirubin Neg (Negative) Prot Sulfosalicyli c Acd Negative (Negative) Urine Urobilinogen Norm (Negative) mg/dL Ur Leukocyte Nevaeh ase Negative (Negative) Imaging Data^: CXR: Attestation: I personally reviewed and interpreted this imaging study as follows: Radiologist's impression: [place] [address] XRay Report Signed Patient: Gabi Campbell Unit #: [id number] : 1965 Age/Sex: 54 / F ADM Date: 04/11/20 Loc: ER Room/Bed: Attending Dr: Ordering Provider/Ordering MD: Pastor Killian Date of Service: 04/11/20 Procedure(s): XR chest 1V portable [id number] Accession Number(s): [id number] Report Number: [id number] PROCEDURE INFORMATION: Exam: XR Chest, 1 View Exam date and time: 04/11/2020 11:53 AM Age: 54 years old Clinical indication: Chest pain; Additional info: Pleurisy TECHNIQUE: Imaging protocol: XR of the chest Views: 1 view. COMPARISON: CR XR chest 1V portable [id number] 04/04/2020 4:17 AM FINDINGS: Lungs: Unremarkable. No consolidation. Pleural space: Unremarkable. No pleural effusion. No pneumothorax. Heart/Mediastinum: Unremarkable. No cardiomegaly. Bones/joints: An orthopedic pin bridges an old right clavicle fracture.. XR/XR chest 1V portable [id number] IMPRESSION: No acute findings. Dictated By: Daniel Slater Signed By: Daniel Slater Signed Date/Time: 04/11/20 1301 DD/ 1300 Discharge Plan Discharge Patient Disposition: Home Clinical Impression: Pleurisy Condition: Stable Prescriptions: New prednisone 50 mg tablet 50 mg PO DAILY 5 Days Qty: 5 RF: 0 No Action allopurinol 100 mg tablet 100 mg PO DAILY RF: 0 cyclobenzaprine 10 mg tablet 10 mg PO DAILY PRNRF: 0 ropinirole 2 mg tablet extended release 24 hr 2 mg PO BID RF: 0 sumatriptan succinate [Imitrex] 6 mg/0.5 mL solution 6 mg SUBCUT ONCE PRNRF: 0 furosemide [Lasix] 40 mg tablet 40 mg PO QAM RF: 0 lamotrigine [Lamictal] 100 mg tablet 150 mg PO DAILY Qty: 135 RF: 0 clonazepam 0.5 mg tablet 0.5 mg PO BID Qty: 60 RF: 1 aripiprazole [Abilify] 10 mg tablet 10 mg PO DAILY Qty: 90 RF: 0 fluoxetine [Prozac] 40 mg capsule 40 mg PO QAM Qty: 90 RF: 0 trazodone 50 mg tablet 50 mg PO .hs Qty: 30 RF: 1 hydrocodone-acetaminophen 5-325 mg tablet 1 tab PO Q6H PRN (Reason: pain) Qty: 15 RF: 0 Medrol (John) 4 mg tablets,dose pack See Rx Instructions .ROUTE .COMPLEX Qty: 21 RF: 0 Discharge Orders: Discharge Order (Routine); Ordered 04/11/20 Ordered By: Pastor Killian Referrals: Priyank Stafford NP [Primary Care Provider] - Discharge Diet: Regular Discharge Activity: Increase activity as tolerated Patient Instructions: Pleurisy (ED) Activity Restrictions/Additional Instructions: Follow-up with spring floor service worker on Monday as previously scheduled. Take medications as prescribed. Return to the ER or your medical provider if condition worsens. Please read and understand discharge instructions. If any questions, please ask. Discharge Date/Time: 04/11/20 13:47 Coding Level of Care Code ED Priming Machine Operator for Constanceg Fwd Exam Comprehensive
--- NOTE | 2020-04-11 11:52 | XRR_ITS ---
PROCEDURE INFORMATION: Exam: XR Chest, 1 View Exam date and time: 04/11/2020 11:53 AM Age: 54 years old Clinical indication: Chest pain; Additional info: Pleurisy TECHNIQUE: Imaging protocol: XR of the chest Views: 1 view. COMPARISON: CR XR chest 1V portable [id number] 04/04/2020 4:17 AM FINDINGS: Lungs: Unremarkable. No consolidation. Pleural space: Unremarkable. No pleural effusion. No pneumothorax. Heart/Mediastinum: Unremarkable. No cardiomegaly. Bones/joints: An orthopedic pin bridges an old right clavicle fracture.. XR/XR chest 1V portable [id number] IMPRESSION: No acute findings.
[2020-04-11 12:06] VITALS: BP 114/74; PULSE 71; RESP 16; O2SAT 100
[2020-04-11 12:13] LABS: Add Urine Microscopic? NO
[2020-04-11 12:16] LABS: Urine Appearance Clear (CLEAR); Urine Color Straw (Yellow); pH Urine 8 (5-7)
[2020-04-11 12:17] LABS: Bilirubin Urine Neg (Negative); Blood Urine Neg (Negative); Glucose Urine UA Norm (Normal); Ketones Urine Negative (Negative); Leukocyte Esterase Urine Negative (Negative); Nitrate Urine Negative (Negative); Protein Urine Neg (Negative); Sulfosalicylic Acid Urine Negative (Negative); Urobilinogen Urine Norm (Negative)
[2020-04-11 12:56] VITALS: BP 104/84; PULSE 72; RESP 16; O2SAT 100
[2020-04-11] MEDS: HYDROcodone-acetaminophen 7.5-325 mg Tablet 1 TAB PO (13:25)
[2020-04-11 13:38] VITALS: BP 112/80; PULSE 72; RESP 16; O2SAT 98
== END 2020-04-11 13:47 | disposition home or self-care (01) ==
PROVIDERS: Emergency Provider Physician Assistant; PCP Nurse Practitioner Family
DX: R09.1 Pleurisy (principal)
CPT/HCPCS: 12345; 71045; 81003; 99282; 99283

== ENCOUNTER 2020-04-14 07:00 | Outpatient (CLI) | payer MEDICARE, SELFPAY ==
--- NOTE | 2020-04-14 14:04 | PFTS_ITS ---
Date of Study:04/14/20 Date of Dictation: MECHANICS: Forced vital capacity (FVC) is normal. Forced expiratory volume in one second (FEV1) is normal. FEV1/FVC is normal. FLOW VOLUME LOOP: Normal. LUNG VOLUMES: Not measured DIFFUSING CAPACITY FOR CARBON MONOXIDE: Not measured INTERPRETATION: The spirometry is normal. MTDD
== END 2020-04-14 07:01 | disposition home or self-care (01) ==
LOC: RT 07:02
PROVIDERS: PCP Nurse Practitioner Family; Visit Provider Nurse Practitioner Family
DX: J45.909 Unspecified asthma, uncomplicated (principal)
CPT/HCPCS: 94010

== ENCOUNTER → 2020-04-30 07:36 | Outpatient (BNVA) | payer MEDICARE, SELFPAY | PROVIDERS: PCP Nurse Practitioner Family; Visit Provider Nurse Practitioner | DX: F41.1 Generalized anxiety disorder (principal); F42.9 Obsessive-compulsive disorder, unspecified; F60.7 Dependent personality disorder | CPT/HCPCS: 99214 ==

== ENCOUNTER → 2020-06-16 07:53 | Outpatient (BNVA) | payer MEDICARE, SELFPAY | PROVIDERS: PCP Nurse Practitioner Family; Visit Provider Nurse Practitioner | DX: F41.1 Generalized anxiety disorder (principal); F42.9 Obsessive-compulsive disorder, unspecified; F60.7 Dependent personality disorder | CPT/HCPCS: 99213 ==

== ENCOUNTER → 2020-06-29 09:01 | Outpatient (BNVA) | payer MEDICARE, SELFPAY | PROVIDERS: PCP Nurse Practitioner Family; Visit Provider Obstetrics & Gynecology | DX: R10.32 Left lower quadrant pain (principal); Z90.710 Acquired absence of both cervix and uterus | CPT/HCPCS: 76830 ==

== ENCOUNTER 2020-07-17 14:52 | Outpatient (CLI) | payer MEDICARE, SELFPAY ==
--- NOTE | 2020-07-17 14:56 | MM_ITS ---
WS: [id number] BILATERAL DIGITAL SCREENING MAMMOGRAM WITH CAD CLINICAL INFORMATION: SCREENING HISTORY: Screening mammogram. No current complaints. COMPARISON: TECHNIQUE: Bilateral CC and MLO views. FINDINGS: History of bilateral breast reduction. Fatty-replaced breasts bilaterally. No suspicious focal mass, asymmetry, calcifications, or architect in training ural distortion. No evidence of malignancy. Stable punctate calcification right breast. MM/[place] [id number] IMPRESSION: BI-RADS: 2-Benign FOLLOW UP: 1 Year Follow-up Recommend return to annual screening mammography.
== END 2020-07-17 14:53 | disposition home or self-care (01) ==
PROVIDERS: PCP Nurse Practitioner Family; Visit Provider Obstetrics & Gynecology
DX: Z12.31 Encounter for screening mammogram for malignant neoplasm of breast (principal); K62.5 Hemorrhage of anus and rectum; D64.9 Anemia, unspecified
CPT/HCPCS: 77067; 87635

== ENCOUNTER 2020-07-22 09:04 | Day surgery (SDC) | payer MEDICARE, SELFPAY ==
[2020-07-22 09:43] VITALS: BP 105/71; PULSE 57; RESP 18; TEMP 36.2; O2SAT 99
[2020-07-22] MEDS: sodium chloride 0.9% 1,000 ML 30 ML IV (09:56)
--- NOTE | 2020-07-22 09:56 | ANES.PREANE2 ---
Pre-Anesthetic Assessment Pre-Anesthetic Assessment: Height/Weight: Height 1.6 m Weight 79.379 kg Temp Pulse Resp BP Pulse Ox 97.1 F L 57 L 18 105/71 99 07/22/20 09:43 07/22/20 09:43 07/22/20 09:43 07/22/20 09:43 07/22/20 09:43 Preop Diagnosis: Bleeding per rectum Proposed Procedure: Operation Date: 07/22/20 10:00 Proposed Procedures p EGD/colon 86312 84150 D64.9 K62.5(Not Applicable) - Shabbir Chen MD s Colonoscopy(Not Applicable) - Shabbir Chen MD Familial anesthetic complications: None Was Beta Josy taken within 24 hours: N/A Last intake: Intake Last Liquid Date 07/21/20 Last Solid Date 07/20/20 Social: Social History: No alcohol and No tobacco Exam: Pre-Anes Outpt Exam: alert, oriented x 3, clear to auscultation bilaterally and regular rate & rhythm Airway: Cervical ROM: WNL MP: 2 Dentition: False and Partials : : Chronic renal Insufficiency Metabolic: Metabolic: Thyroid Neuropsych: Neuropsych: Anxiety Anesthetic Plan: ASA status: 2 Anesthesia: MAC Risk of > 500 ml blood loss (7ml/kg in children): No PFSH Anesthesia PFSH: Medical History Dependent personality disorder Generalized anxiety disorder Gout Hyperlipidemia Hypothyroidism In past. Migraine Obsessive-compulsive disorder, unspecified PTSD (post-traumatic stress disorder) Stage 3 chronic kidney disease Surgical History History of axillary surgery (~03/2016) Exploratory left armpit surgery. Performed by Dr. Chen at [facility] in [place], [place]. History of carpal tunnel surgery Both, Left wrist twice, right wrist once History of open reduction and internal fixation (ORIF) procedure (10/11/10) Right clavicle. Performed by Dr. Monroe at [facility] in [place], [place]. History of prolapse of bladder (~2008) bladder mesh History of removal of retained hardware (04/26/11) With open reduction and internal fixation of Rt clavicle. Performed by Dr. Hossein Ortiz at [facility] in [place], [place]. History of removal of retained hardware (12/12/12) Right shoulder. Performed by Dr. Hossein Ortiz at [facility] in [place], [place]. History of suburethral sling procedure (08/29/07) Anterior vaginal repair & transobturator suburethral sling; Dx: Cystocele, BRANDEN. Performed by Dr. Rosenberg at [facility] in [place], [place]. History of tubal ligation (~1996) Hx of bilateral breast reduction surgery (~2002) Hx of ectopic (~1986) Laparoscopic treatment of ectopic S/P laparoscopic assisted vaginal hysterectomy (LAVH) (01/21/08) With anterior repair. Performed by Dr. Bueno at [facility] in [place], [place] S/P laparoscopic cholecystectomy (~1996) Performed at [facility] in [place], [place] Family History Brother Hypertension Heart disease Colon cancer Father Hypertension Grandmother Diabetes Maternal Heart disease Maternal Unknown No problems noted. Mother Cancer leukemia, hodgkins Grandfather Cancer lung cancer, maternal Social History Smoking and tobacco status: never smoked Alcohol intake: current Alcohol intake frequency: holidays/special occasions only Data Anesthesia Cardiac Studies: No Data to Display
--- NOTE | 2020-07-22 09:58 | W.PM.OPSUD ---
Surgery/Procedure H&P Update DATE OF PROCEDURE: July 22, 2020 DATE H&P PERFORMED: 07/02/20 H&P UPDATE INFORMATION: I have reviewed H&P completed within last 30 days, I have examined patient prior to procedure and No changes to prior documentation PREOP DIAGNOSIS: Bleeding per rectum PRIMARY INDICATION FOR PROCEDURE: The same PLANNED PROCEDURE: Operation Date: 07/22/20 10:00 Proposed Procedures p EGD/colon 22446 91061 D64.9 K62.5(Not Applicable) - Shabbir Chen MD s Colonoscopy(Not Applicable) - Shabbir Chen MD
[2020-07-22 11:00] VITALS: BP 103/59; PULSE 58; RESP 16; TEMP 36.2; O2SAT 94
--- NOTE | 2020-07-22 11:03 | ANE.PACU2 ---
Inpatient post-anesthesia follow up: Airway intact: Yes Vital signs: Temperature 97.1 F Pulse Rate 57 Respiratory Rate 18 Blood Pressure 105/71 Pulse Oximetry 99 Oxygen Delivery Me thod Room Air Oxygen Flow Rate Fraction of Inspir ed Oxygen Hydration adequate: Yes Nausea and vomiting: No Pain level: 1 Mental status: Baseline
[2020-07-22 11:12] VITALS: BP 105/62; PULSE 58; RESP 18
== END 2020-07-22 11:37 | disposition home or self-care (01) ==
PROVIDERS: PCP Nurse Practitioner Family; Visit Provider Surgery
PROC: 0DJ08ZZ Inspection of Upper Intestinal Tract, Via Natural or Artificial Opening Endoscopic (ICD-10-PCS; CPT 43235; principal; 2020-07-22 10:00)
PROC: 0DJD8ZZ Inspection of Lower Intestinal Tract, Via Natural or Artificial Opening Endoscopic (ICD-10-PCS; CPT 45378; 2020-07-22 10:00)
DX: K62.5 Hemorrhage of anus and rectum (principal); K31.7 Polyp of stomach and duodenum; K21.9 Gastro-esophageal reflux disease without esophagitis; K29.70 Gastritis, unspecified, without bleeding; E78.5 Hyperlipidemia, unspecified; E03.9 Hypothyroidism, unspecified; F41.9 Anxiety disorder, unspecified; N18.30 Chronic kidney disease, stage 3 unspecified
CPT/HCPCS: 12345; 43239; 45378; 88305; J2704; J7030

== ENCOUNTER → 2020-07-29 07:34 | Outpatient (BNVA) | payer MEDICARE, SELFPAY | PROVIDERS: PCP Nurse Practitioner Family; Visit Provider Nurse Practitioner | DX: F41.1 Generalized anxiety disorder (principal); F60.7 Dependent personality disorder; F42.9 Obsessive-compulsive disorder, unspecified | CPT/HCPCS: 99214 ==

== ENCOUNTER 2020-09-01 07:50 | Outpatient (CLI) | payer MEDICARE, SELFPAY ==
--- NOTE | 2020-09-01 07:59 | CT_ITS ---
WS: [id number] CT scan of the head, 09/01/2020 Clinical Data: MIGRAINE, COMMON Comparison: CT head, 10/02/2010. DLP: 925.[address] scans at [facility] use at least one of these dose optimization techniques: automat ed exposure control; mA and/or kV adjustment per patient size (includes targeted exams where dose is matched to clinical indication); or iterative reconstruction. Findings: The ventricular system is normal without shift. No recent infarct or hemorrhage is seen. There are no abnormal intracerebral masses. The cerebellum and brainstem are not remarkable. Bony windows of the skull and skull base show no fractures or erosions. The mastoid air cells, technical intern al auditory canals, sella turcica, intraorbital contents, and paranasal sinuses are unremarkable. CT/CT head wo con* [id number] Impression: Negative CT scan of the head
== END 2020-09-01 07:51 | disposition home or self-care (01) ==
LOC: RADWPI 07:55
PROVIDERS: PCP Nurse Practitioner Family; Visit Provider Nurse Practitioner Family
DX: G43.009 Migraine without aura, not intractable, without status migrainosus (principal)
CPT/HCPCS: 70450

== ENCOUNTER → 2020-10-05 09:12 | Outpatient (BNVA) | payer MEDICARE, SELFPAY | PROVIDERS: PCP Nurse Practitioner Family; Visit Provider Nurse Practitioner | DX: F42.9 Obsessive-compulsive disorder, unspecified (principal); F60.7 Dependent personality disorder; F41.1 Generalized anxiety disorder; F43.10 Post-traumatic stress disorder, unspecified | CPT/HCPCS: 99214 ==

== ENCOUNTER → 2020-12-02 10:40 | Outpatient (BNVA) | payer MEDICARE, SELFPAY | PROVIDERS: PCP Nurse Practitioner Family; Visit Provider Nurse Practitioner | DX: F42.9 Obsessive-compulsive disorder, unspecified (principal); F60.7 Dependent personality disorder; F41.1 Generalized anxiety disorder; F43.10 Post-traumatic stress disorder, unspecified | CPT/HCPCS: 99215 ==

== ENCOUNTER → 2021-01-28 07:27 | Outpatient (BNVA) | payer MEDICARE, SELFPAY | PROVIDERS: PCP Nurse Practitioner Family; Visit Provider Nurse Practitioner | DX: F43.10 Post-traumatic stress disorder, unspecified (principal); F41.1 Generalized anxiety disorder; F60.7 Dependent personality disorder; F42.9 Obsessive-compulsive disorder, unspecified | CPT/HCPCS: 99214 ==

== ENCOUNTER → 2021-03-06 12:49 | Outpatient (BNVA) | payer MEDICARE, SELFPAY | PROVIDERS: PCP Nurse Practitioner Family; Visit Provider Registered Nurse Neonatal Intensive Care | DX: Z20.822 Contact with and (suspected) exposure to COVID-19 (principal) | CPT/HCPCS: 87635 ==

== ENCOUNTER 2021-04-16 08:47 | Outpatient (CLI) | payer MEDICARE, SELFPAY ==
--- NOTE | 2021-04-16 09:00 | MM_ITS ---
WS: [id number] Exam: [place] [id number] Date/Time of Exam: 04/16/2021 8:56 AM Reason For Exam: N64.4 - Mastodynia VIEWS: MLO, CC, and ML views both breasts. Comparison made with prior exam of 11/18/2015, 04/27/2017, and 06/01/2018. Findings: There was no sign of mass, architectural distortion or suspicious calcification in either breast. Sta ble-appearing 7 mm nodule in the upper outer quadrant of the left breast.Fatty MM/[place] [id number] Impression: BI-RADS: 2-Benign FOLLOW-UP: 1 Year Follow-up This mammogram was also analyzed by the Computer Aided Detection System [employer] Equipment [employer].
--- NOTE | 2021-04-16 09:30 | US_ITS ---
WS: [id number] Exam: US breast RT limited* [id number] Date/Time of Exam: 04/16/2021 9:40 AM Reason For Exam: N64.4 - Mastodynia Regional ultrasound of the right breast was performed from the 4:00 to the 8:00 position as well as t he region of the nipple. There was no sign of suspicious solid mass or nodule. No cysts were identified in this region. US/US breast RT limited* [id number] IMPRESSION: 1. No abnormal ultrasound findings from the 4:00 to the 8:00 position in the ri ght breast. BI-RADS Category 1. Recommendation: Continue yearly screening mammography.
== END 2021-04-16 08:48 | disposition home or self-care (01) ==
LOC: RADSHAW 08:49
PROVIDERS: PCP Nurse Practitioner Family; Visit Provider Nurse Practitioner Women's Health
DX: N64.4 Mastodynia (principal)
CPT/HCPCS: 76642; 77066

== ENCOUNTER 2021-05-08 09:31 | Emergency (ER) | payer MEDICARE, SELFPAY ==
[2021-05-08 09:59] VITALS: BP 92/70; PULSE 72; RESP 17; TEMP 36.6; O2SAT 99; BMI 31.8
--- NOTE | 2021-05-08 10:04 | XRR_ITS ---
PROCEDURE INFORMATION: Exam: XR Chest Exam date and time: 05/08/2021 10:04 AM Age: 55 years old Clinical indication: Shortness of breath. COVID 19 positive. TECHNIQUE: Imaging protocol: XR of the chest. Views: 1 view. COMPARISON: CR XR chest 1V portable [id number] 04/11/2020 12:34 PM FINDINGS: Lungs: There is questionable patchy hazy opacity at the left base that may reflect infiltrate. Pleural spaces: No pleural effusion.. No pneumothorax. Heart/Mediastinum: The cardiac silhouette is approximately unchanged. No gross evidence of pneumomediastinum. Bones/joints: A right clavicular nicole is noted. There is an old right clavicular fracture. No gross fracture. Upper abdomen: Probable prior cholecystectomy. XR/XR chest 1V portable [id number] IMPRESSION: Questionable patchy hazy opacity at the left base that may reflect infiltrate. Consider CT to better characterize. Radiation Dose CTDIVOL = (mGy): DLP = (mGy-cm)
--- NOTE | 2021-05-08 10:41 | W.ED.COVID ---
HPI - COVID General: Chief Complaint: Shortness of Breath/Dyspnea Stated Complaint: Covid+ since the Monday, low O2 Time Seen by Provider: 05/08/21 10:05 History of Present Illness: HPI Narrative: Patient presents with Covid positive. Patient complains about shortness of breath. Patient says her sats have been fluctuating been down to 84%. Says she does breathing treatments at home. Started symptoms on was tested on the . Does have monoclonal antibody infusion scheduled for the . MD complaint: known COVID positive and has COVID symptoms Prior covid testing: yes, results known Prior testing date: 05/05/21 COVID 19 common symptoms: positive chills, non-productive cough, dyspnea, fatigue and body aches; negative headache(s), throat pain, nasal congestion, nausea or vomiting COVID 19 other sytmptoms: negative chest pain Onset (ago): day(s) Severity: mild Treatment prior to arrival: breathing treatments COVID Results: SARS-CoV-2 RNA (RT-PCR) Not detected (NOT DETECTED) 03/06/21 12:49 03/06/21 Nasal/Oral Coronavirus 2019 PCR Not detected 07/17/20 12:43 07/17/20 Review of Systems Const: Reports: chills, body aches and fatigue Eyes: Denies: change in vision or blurry vision ENMT: Denies: throat pain or nasal congestion Card: Denies: chest pain or dyspnea on exertion Resp: Reports: dyspnea and non-productive cough GI: Denies: abdominal pain, nausea or vomiting Musc: Denies: extremity pain Skin/Breast: Denies: rash Neuro: Denies: headache(s) Psych: Denies: anxiety or depression Mike/Lymph: Denies: easy bruising PFSH ED PFSH: Medical History (Updated 02/25/21 @ 10:49 by Priscilla Mora APN, WHNP) Dependent personality disorder Gastric polyp Generalized anxiety disorder Gout Hyperlipidemia Hypothyroidism In past. Migraine Obsessive-compulsive disorder, unspecified PTSD (post-traumatic stress disorder) Stage 3 chronic kidney disease Surgical History (Updated 02/25/21 @ 10:38 by Priscilla Mora APN, WHNP) History of axillary surgery (~03/2016) Exploratory left armpit surgery. Performed by Dr. Chen at [facility] in [place], [place]. History of carpal tunnel surgery Both, Left wrist twice, right wrist once History of open reduction and internal fixation (ORIF) procedure (10/11/10) Right clavicle. Performed by Dr. Monroe at [facility] in [place], [place]. History of prolapse of bladder (~2008) bladder mesh History of removal of retained hardware (04/26/11) With open reduction and internal fixation of Rt clavicle. Performed by Dr. Hossein Ortiz at [facility] in [place], [place]. History of removal of retained hardware (12/12/12) Right shoulder. Performed by Dr. Hossein Ortiz at [facility] in [place], [place]. History of suburethral sling procedure (08/29/07) Anterior vaginal repair & transobturator suburethral sling; Dx: Cystocele, BRANDEN. Performed by Dr. Rosenberg at [facility] in [place], [place]. History of tubal ligation (~1996) Hx of bilateral breast reduction surgery (~2002) Hx of colonoscopy (~2020) Hx of ectopic (~1986) Laparoscopic treatment of ectopic Hx of esophagogastroduodenoscopy (~2020) S/P laparoscopic assisted vaginal hysterectomy (LAVH) (01/21/08) With anterior repair. Performed by Dr. Bueno at [facility] in [place], [place] S/P laparoscopic cholecystectomy (~1996) Performed at [facility] in [place], [place] Family History Brother Hypertension Heart disease Colon cancer Father Hypertension Grandmother Diabetes Maternal Heart disease Maternal Unknown No problems noted. Mother Cancer leukemia, hodgkins Grandfather Cancer lung cancer, maternal Social History Smoking and tobacco status: never smoked Alcohol intake: current Alcohol intake frequency: holidays/special occasions only Physical Exam Const: COMMON NORMALS: no acute distress, average body habitus and patient oriented x3 HENMT: COMMON NORMALS: normocephalic HEAD & SCALP: normal to inspection and normocephalic FACE & SINUS: normal facial exam Eye: COMMON NORMALS: conjunctivae normal GENERAL EYE: appearance normal, both eyes and all related structures CONJUNCTIVA: Yes conjunctivae normal Neck/C-Spine: COMMON NORMALS: no JVD Chest: COMMONS NORMALS: normal inspection of the chest Resp: COMMON NORMALS: normal respiratory effort and clear to auscultation bilaterally AUSCULTATION: clear to auscultation bilaterally Cardio: COMMON NORMALS: no JVD, regular rate and regular rhythm RATE: regular rate RHYTHM: regular rhythm GI: COMMON NORMALS: Normal to inspection, nondistended, normoactive bowel sounds present Extremity: COMMON NORMALS: normal to inspection and full ROM Neuro: COMMON NORMALS: patient oriented x3 Course Vital Signs: Vital signs: Vital Signs Temperature 97.8 F 05/08/21 09:59 Pulse Rate 72 05/08/21 09:59 Respiratory Rate 17 05/08/21 09:59 Blood Pressure 92/70 05/08/21 09:59 Pulse Oximetry 99 05/08/21 09:59 MDM - COVID COVID Results: SARS-CoV-2 RNA (RT-PCR) Not detected (NOT DETECTED) 03/06/21 12:49 03/06/21 Nasal/Oral Coronavirus 2019 PCR Not detected 07/17/20 12:43 07/17/20 Discharge Plan Discharge Prescriptions: No Action allopurinol 100 mg tablet 100 mg PO DAILY RF: 0 trazodone 100 mg tablet 100 mg PO .HS Qty: 30 RF: 1 lamotrigine [Lamictal] 100 mg tablet 150 mg PO DAILY Qty: 135 RF: 0 fluoxetine [Prozac] 20 mg capsule 60 mg PO DAILY Qty: 270 RF: 0 clonazepam 0.5 mg tablet 0.5 mg PO BID PRN (Reason: Anxiety) Qty: 60 RF: 1 loratadine [Claritin] 10 mg tablet 10 mg PO DAILY RF: 0 ropinirole 2 mg tablet extended release 24 hr 2 mg PO BID RF: 0 furosemide [Lasix] 40 mg tablet 80 mg PO QAM RF: 0 sumatriptan succinate [Imitrex STATdose Pen] 6 mg/0.5 mL pen injector SUBCUT RF: 0 Coding Level of Care Code ED Radio Program Director for Constanceg Aj
[2021-05-08] MEDS: dexamethasone 4 mg Tablet 10 MG PO (11:09)
[2021-05-08] MEDS: SUMAtriptan 25 mg Tablet 100 MG PO (11:10)
--- NOTE | 2021-05-08 11:15 | PC.NURSE ---
Hx of Migraine. Today frontal head hurting. Will have COVID infusuion on the 05/12
[2021-05-08 11:16] VITALS: BP 103/73; PULSE 73; RESP 18; TEMP 36.7; O2SAT 92
== END 2021-05-08 11:20 | disposition home or self-care (01) ==
PROVIDERS: Emergency Provider Nurse Practitioner Family; PCP Nurse Practitioner Family
DX: R06.02 Shortness of breath (principal); E78.5 Hyperlipidemia, unspecified; N18.30 Chronic kidney disease, stage 3 unspecified
CPT/HCPCS: 71045; 99283; J8540

== ENCOUNTER 2021-05-11 07:38 | Outpatient (CLI) | payer MEDICARE, SELFPAY ==
[2021-05-11 07:58] VITALS: BP 130/81; PULSE 68; RESP 18; TEMP 36.7; O2SAT 99; BMI 31.8
[2021-05-11 08:31] VITALS: BP 110/73; PULSE 61; RESP 18; TEMP 36.3; O2SAT 95
[2021-05-11 09:31] VITALS: BP 120/80; PULSE 69; RESP 18; TEMP 36.7; O2SAT 99
== END 2021-05-11 07:39 | disposition home or self-care (01) ==
PROVIDERS: PCP Nurse Practitioner Family; Visit Provider Nurse Practitioner Family
DX: U07.1 COVID-19 (principal)
CPT/HCPCS: 96365

== ENCOUNTER 2021-05-16 11:48 | Observation (INO) | payer MEDICARE, SELFPAY ==
[2021-05-16] VITALS (7 sets, daily range): BP systolic 78–144; BP diastolic 66–86; PULSE 49–73; RESP 16–18; TEMP 36.4; O2SAT 97–99; BMI 31.8; BMI 34.6
--- NOTE | 2021-05-16 15:38 | CTR_ITS ---
PROCEDURE INFORMATION: Exam: CT Head Without Contrast Exam date and time: 05/16/2021 3:38 PM Age: 55 years old Clinical indication: Patient HX: PT is post covid C/O AMS, RUSSELL, dizziness TECHNIQUE: Imaging protocol: Computed tomography of the head without contrast. Axial, coronal and sagittal reformatted images were created and reviewed. Radiation optimization: All CT scans at this facility use at least one of these dose optimization techniques: automated exposure control; mA and/or kV adjustment per patient size (includes targeted exams where dose is matched to clinical indication); or iterative reconstruction. COMPARISON: CT head wo con* [id number] 09/01/2020 8:10 AM RADIATION DOSE METRICS: Total DLP (mGy-cm): 744.42 FINDINGS: Brain: No CT evidence of acute intracranial hemorrhage or acute territorial infarction. No significant mass effect or midline shift. Basal cisterns patent. Cerebral ventricles: Normal in size and configuration. Paranasal sinuses: Minimal ethmoid mucosal thickening. Mastoid air cells: Grossly unremarkable. Bones/joints: No acute osseous abnormality. Soft tissues: Grossly unremarkable. CT/CT head wo con* [id number]: 1[address] No CT evidence of acute intracranial pathology. 2. Additional findings, as above. Radiation Dose CTDIVOL = (mGy): DLP = 744.42 (mGy-cm)
--- NOTE | 2021-05-16 15:39 | ECG_ITS ---
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: : 1965 Requested By: Bridget Randall Order Number: [id number] Dustin MD: ROBBY LEE Measurements Intervals [place] Rate: 47 P: 22 AR: 193 QRS: 2 QRSD: 80 T: 43 QT: 440 QTc: 389 Interpretive Statements SINUS BRADYCARDIA POSSIBLE ANTERIOR MYOCARDIAL INFARCTION , OF INDETERMINATE AGE [30 ms Q WAVE IN V3/V4, OR R < 0.2 mV IN V4] Compared to ECG 04/04/2020 05:43:28 Myocardial infarct finding now present Sinus rhythm no longer present Indeterminate axis no longer present Electronically Signed On 05-17-2021 12:53:34 COUPLER by ROBBY LEE [id number]
--- NOTE | 2021-05-16 16:00 | ED_ITS ---
HPI - Neuro Symptoms/Deficit General: Chief Complaint: Neuro Symptoms/Deficit Stated Complaint: AMS from covid/unbalanced Time Seen by Provider: 05/16/21 15:33 Source: patient and family Mode of arrival: ambulatory Limitations: no limitations History of Present Illness: HPI Narrative: Patient is a very nice 55-year-old female who comes in complaining of generalized weakness, dizziness and fatigue. Patient just got out of quarantine for Covid 2 days ago. She was vaccinated for Covid and also got the monoclonal antibody infusion for this. Patient states that she feels tired fatigued and now she feels off balance and lightheaded. She states that she feels clumsy and slow to react. This is a global issue not one-sided more than another. She does feel like the she might fall to the side though when she stands up or moves or walks too quickly. She denies any fever, chills, headache, vomiting, chest pain, shortness of breath or any other complaints. She just does not feel as though she can recover from having Covid. She says her legs feel heavy and overall she just feels profoundly weak. She admits she is not eating or drinking very well and she is concerned that she has stage III kidney disease. She does not want to injure her kidneys any further. Associated symptoms: Reports malaise and nausea; Deny chest pain, diaphoresis, headache(s), syncope, vertigo or vomiting Review of Systems Const: Reports: fatigue and malaise; Denies: fever(s), chills, body aches or diaphoresis Eyes: Denies: change in vision, blurry vision, photophobia, eye discomfort, eye discharge, eye redness or yellow eyes ENMT: Denies: throat pain, odynophagia, hoarseness, swelling of lips/tongue, ear or mastoid pain, ear discharge, change in hearing or nasal discharge Card: Denies: chest pain, palpitations, irregular heart rhythm, edema, lightheadedness, syncope, pre-syncope, dyspnea on exertion or orthopnea Resp: Denies: dyspnea, productive cough, non-productive cough, wheezing, hemoptysis or chest congestion GI: Reports: nausea; Denies: abdominal pain, vomiting, hematemesis, coffee ground emesis, heartburn, diarrhea, constipation, GI cramping, hematochezia or melena : Denies: flank pain, dysuria, urinary frequency, urinary urgency or hematuria Musc: Reports: joint pain; Denies: neck pain, back pain, extremity pain, extremity swelling, joint swelling, joint redness, joint warmth or joint stiffness Skin/Breast: Denies: rash, pruritus, erythema, skin pain or skin tenderness Neuro: Reports: weakness in extremities, lack of coordination, difficulty walking and dizziness; Denies: headache(s), numbness in extremities, sensory changes, vertigo, confusion, Slurred speech present or seizure-like activity Mike/Lymph: Denies: easy bruising, easy bleeding, petechiae, purpura or enlarged lymph nodes All/Imm: Denies: urticaria, throat swelling, tongue swelling, facial swelling or acute wheezing PFSH ED PFSH: Medical History Dependent personality disorder Gastric polyp Generalized anxiety disorder Gout Hyperlipidemia Hypothyroidism In past. Migraine Obsessive-compulsive disorder, unspecified PTSD (post-traumatic stress disorder) Stage 3 chronic kidney disease Surgical History History of axillary surgery (~03/2016) Exploratory left armpit surgery. Performed by Dr. Chen at [facility] in [place], [place]. History of carpal tunnel surgery Both, Left wrist twice, right wrist once History of open reduction and internal fixation (ORIF) procedure (10/11/10) Right clavicle. Performed by Dr. Monroe at [facility] in [place], [place]. History of prolapse of bladder (~2008) bladder mesh History of removal of retained hardware (04/26/11) With open reduction and internal fixation of Rt clavicle. Performed by Dr. Hossein Ortiz at [facility] in [place], [place]. History of removal of retained hardware (12/12/12) Right shoulder. Performed by Dr. Hossein Ortiz at [facility] in [place], [place]. History of suburethral sling procedure (08/29/07) Anterior vaginal repair & transobturator suburethral sling; Dx: Cystocele, BRANDEN. Performed by Dr. Rosenberg at [facility] in [place], [place]. History of tubal ligation (~1996) Hx of bilateral breast reduction surgery (~2002) Hx of colonoscopy (~2020) Hx of ectopic (~1986) Laparoscopic treatment of ectopic Hx of esophagogastroduodenoscopy (~2020) S/P laparoscopic assisted vaginal hysterectomy (LAVH) (01/21/08) With anterior repair. Performed by Dr. Bueno at [facility] in [place], [place] S/P laparoscopic cholecystectomy (~1996) Performed at [facility] in [place], [place] Family History Brother Hypertension Heart disease Colon cancer Father Hypertension Grandmother Diabetes Maternal Heart disease Maternal Unknown No problems noted. Mother Cancer leukemia, hodgkins Grandfather Cancer lung cancer, maternal Social History Smoking and tobacco status: never smoked Alcohol intake: current Alcohol intake frequency: holidays/special occasions only Physical Exam Const: COMMON NORMALS: no acute distress, patient oriented x3, no limitations and alert GENERAL APPEARANCE: cooperative HENMT: COMMON NORMALS: normocephalic, atraumatic, external ears normal, EAC's normal and Normal external nose present HEAD & SCALP: normal to inspection, normocephalic and atraumatic FACE & SINUS: normal facial exam and face symmetric NOSE: Normal external nose present and Normal nares present EXTERNAL EAR: Yes external ears normal EXTERNAL AUDITORY CANAL: EAC's normal MOUTH: Normal oral and palatal mucosa present, lip normal and tongue normal Eye: COMMON NORMALS: Equal, round and reactive pupils present and conjunctivae normal GENERAL EYE: appearance normal, both eyes and all related structures ALIGNMENT: Yes alignment normal PERIORBITAL: periorbital findings normal EYELID: eyelids normal CONJUNCTIVA: Yes conjunctivae normal SCLERA: sclerae normal PUPIL: Yes Equal, round and reactive pupils present Neck/C-Spine: COMMON NORMALS: full ROM, no lymphadenopathy, supple, no meningeal signs and no JVD GENERAL: Yes normal visual inspection and Yes trachea midline Chest: COMMONS NORMALS: normal inspection of the chest and normal palpation of entire chest wall Resp: COMMON NORMALS: normal respiratory effort, No retractions, No use of accessory muscles and clear to auscultation bilaterally EFFORT & INSPECTION: Yes able to speak in complete sentences and Yes symmetric chest movement AUSCULTATION: clear to auscultation bilaterally, no crackles, no rales, no rhonchi and no wheezes Cardio: COMMON NORMALS: no JVD, regular rate, regular rhythm, S1 normal heart sound present and S2 normal heart sound present RATE: regular rate RHYTHM: regular rhythm HEART SOUNDS: S1 normal heart sound present, S2 normal heart sound present, no click, no gallops, no murmurs and no rubs GI: COMMON NORMALS: Soft to palpation and No hepatosplenomegaly present PALPATION: Yes Soft to palpation, No Tenderness to palpation present (GI), No Guarding due to palpation present (GI), No Rigid due to palpation, Yes No hepatosplenomegaly present, No Hernia present, No Palpable mass present and No Pulsatile mass present : COMMON NORMALS: Yes no CVA tenderness BLADDER/KIDNEY EXAM: Yes no CVA tenderness EXTERNAL FEMALE EXAM: No Hernia present Back/Pelvis: COMMON NORMALS: no CVA tenderness, thoracic and lumbar spine normal to inspection, no thoracic nor lumbar tenderness and thoraco-lumbar ROM normal Extremity: COMMON NORMALS: normal to inspection, full ROM, capillary refill normal, no joint enlargement, no clubbing, cyanosis or edema and no calf tenderness Neuro: COMMON NORMALS: patient oriented x3, CN's II-XII intact bilaterally, moves all extremities, no focal motor deficits and no sensory deficits noted SENSORIUM/ORIENTATION: Yes alert MENINGEAL SIGNS: Yes no meningeal signs C OORDINATION/BALANCE: other (Patient has ataxic movements of the right upper extremity and right lower e) SPEECH: speech normal COORDINATION: other (Patient has ataxic movements of the right upper extremity and right lower e) Psych: COMMON NORMALS: mental status grossly normal, Normal thought process present, cooperative, normal affect, speech normal and activity/motor behavior normal SPEECH: Yes normal speech THOUGHT PROCESS: Normal thought process present Skin: COMMON NORMALS: no rashes or lesions noted, turgor normal, no jaundice, no petechiae and no mottling GENERAL SKIN EXAM: no rashes or lesions noted and turgor normal Course Vital Signs: Vital signs: Vital Signs Temperature 97.6 F 05/16/21 13:08 Pulse Rate 52 L 05/16/21 16:46 Respiratory Rate 16 05/16/21 16:46 Blood Pressure 121/83 05/16/21 16:46 Pulse Oximetry 98 05/16/21 16:46 MDM - Neuro Symptoms/Deficit MDM Narrative: Medical decision making narrative: 1731 -the patient has abnormal [id number] and ataxia with ambulation. I am concerned about a possible cerebellar stroke or other process. The patient may not be safe and will need physical therapy as well as a neurology consult. I reviewed the case in full with Dr. Cisneros who would like to have the patient admitted to the [facility] and will perform an MRI of the brain in the morning. Lab Data: Attestation: I reviewed the patient's lab results. Labs: Lab Results 05/16/21 05/16/21 05/16/21 15:50 15:50 15:50 WBC 10.3 10^3/uL H 10 ^3/uL (4.0-10.0) RBC 4.63 10^6/uL 10^6 /uL (4.1-5.3) Hgb 13.8 g/dL g/dL (11.5-15.3) Hct 43.1 % % (37.0-47.0) MCV 93.1 fl fl (81-99) MCH 29.8 pg pg (28.0-34.0) MCHC 32.0 g/dL g/dL (30.0-36.0) RDW 13.5 % % (12.1-15.1) Plt Count 422 10^3/cmm H 10 ^3/cmm (130-400) MPV 10.0 fL fL (7.4-10.4) Neut % (Auto) 56.1 % % Lymph % (Auto) 35.3 % % Rooks % (Auto) 5.6 % % Eos % (Auto) 0.9 % % Baso % (Auto) 0.1 % % Neut # (Auto) 5.77 10^3/uL 10^3 /uL (1.8-7.7) Lymph # (Auto) 3.6 10^3/uL 10^3/ uL (0.8-4.8) Rooks # (Auto) 0.6 10^3/uL 10^3/ uL (0.2-0.9) Eos # (Auto) 0.1 10^3/uL 10^3/ uL (0.0-0.8) Baso # (Auto) 0.0 10^3/uL 10^3/ uL (0.0-0.1) Nucleated RBC % (a uto) 0 % % Nucleated RBCs # 0.0 /100WBC /100W BC Sodium 138 mmol/L mmol/L (136-145) Potassium 3.7 mmol/L mmol/L (3.5-5.1) Chloride 101 mmol/L mmol/L (98-107) Carbon Dioxide 27 mmol/L mmol/L (22-29) Anion Gap 13.7 (5-19) BUN 21 mg/dL H mg/dL (6-20) Creatinine 0.9 mg/dL mg/dL (0.5-0.9) GFR Calculation 65.2 mL/min L mL/ min (90-130) Glucose 75 mg/dL mg/dL (65-115) Calculated Osmolal ity 288 mOsm/kg mOsm/ kg (285-295) Calcium 9.2 mg/dL mg/dL (8.5-10.5) Magnesium 2.5 mg/dL H mg/dL (1.7-2.3) Total Bilirubin 0.3 mg/dL mg/dL (0.15-1.2) AST 16 U/L U/L (0-32) ALT 26 U/L U/L (0-33) Alkaline Phosphata se 95 IU/L IU/L (35-105) Troponin T Baselin e Total Protein 6.9 g/dL g/dL (6.6-8.7) Albumin 4.4 g/dL g/dL (3.5-5.2) Globulin 2.5 g/dL g/dL (1.3-4.6) HCG, Qual Negative (Negative) Urine Color Urine Appearance Urine pH Ur Specific Gravit y Urine Protein Urine Glucose (UA) Urine Ketones Urine Blood Urine Nitrate Urine Bilirubin Urine Urobilinogen Ur Leukocyte Nevaeh ase Urine RBC Urine WBC Ur Squamous Epith Cells Amorphous Sediment Urine Bacteria Urine Mucus 05/16/21 05/16/21 15:50 15:50 WBC RBC Hgb Hct MCV MCH MCHC RDW Plt Count MPV Neut % (Auto) Lymph % (Auto) Rooks % (Auto) Eos % (Auto) Baso % (Auto) Neut # (Auto) Lymph # (Auto) Rooks # (Auto) Eos # (Auto) Baso # (Auto) Nucleated RBC % (a uto) Nucleated RBCs # Sodium Potassium Chloride Carbon Dioxide Anion Gap BUN Creatinine GFR Calculation Glucose Calculated Osmolal ity Calcium Magnesium Total Bilirubin AST ALT Alkaline Phosphata se Troponin T Baselin e 7 ng/L ng/L (0-10) Total Protein Albumin Globulin HCG, Qual Urine Color Yellow (Yellow) Urine Appearance Clear (CLEAR) Urine pH 5 (5-7) Ur Specific Gravit y 1.020 (1.005-1.030) Urine Protein Neg (Negative) Urine Glucose (UA) Norm (Normal) Urine Ketones Negative (Negative) Urine Blood 2+ H (Negative) Urine Nitrate Negative (Negative) Urine Bilirubin Neg (Negative) Urine Urobilinogen Norm mg/dL mg/dL (Negative) Ur Leukocyte Nevaeh ase Negative (Negative) Urine RBC 0-4 /hpf H /hpf (0-2) Urine WBC Rare /hpf /hpf (0-5) Ur Squamous Epith Cells Rare /hpf /hpf (0-5) Amorphous Sediment Not Reportable Urine Bacteria Trace /hpf /hpf (NONE) Urine Mucus Trace /hpf /hpf Imaging Data^: CT Head: Radiologist's impression: See formal report EKG Data^: EKG 1: EKG interpretation date: 05/16/21 EKG interpretation time: 16:09 Interpretation: Normal sinus rhythm at 47 beats a minute, no blocks, normal intervals, no acute ST-T wave changes. Discharge Plan Discharge Patient Disposition: Admitted As Inpatient Clinical Impression: Ataxia Condition: Stable Coding Level of Care Code ED Jail Officer for Chg Fwd Exam Comprehensive
[2021-05-16] MEDS: lactated ringers 1,000 ML 999 ML IV ×2 (16:02→17:43)
[2021-05-16 16:14] LABS: Basophils % 0.1 %; Eosinophils # 0.1 10^3/uL (0.0-0.8); Eosinophils % 0.9 %; Hematocrit 43.1 % (37.0-47.0); Hemoglobin 13.8 g/dL (11.5-15.3); Lymphocytes # 3.6 10^3/uL (0.8-4.8); Lymphocytes % 35.3 %; Mean Corpuscular Hemoglobin 29.8 pg (28.0-34.0); Mean Corpuscular Volume 93.1 fl (81-99); Monocytes # 0.6 10^3/uL (0.2-0.9); Monocytes % 5.6 %; Neutrophils # 5.77 10^3/uL (1.8-7.7); Neutrophils % 56.1 %; Nucleated Red Blood Cells % 0 %; Platelet Count 422 10^3/cmm (130-400); Red Blood Count 4.63 10^6/uL (4.1-5.3); Red Cell Distribution Width 13.5 % (12.1-15.1); White Blood Count 10.3 10^3/uL (4.0-10.0)
[2021-05-16 16:26] LABS: HCG, Serum Qual Negative (Negative)
[2021-05-16 16:30] LABS: Bilirubin Urine Neg (Negative); Blood Urine 2+ (Negative); Glucose Urine UA Norm (Normal); Ketones Urine Negative (Negative); Leukocyte Esterase Urine Negative (Negative); Nitrate Urine Negative (Negative); Protein Urine Neg (Negative); Urine Appearance Clear (CLEAR); Urine Color Yellow (Yellow); Urobilinogen Urine Norm (Negative); pH Urine 5 (5-7)
[2021-05-16 16:31] LABS: Bacteria Urine TRACE /hpf; Mucus Urine TRACE /hpf; RBC Urine 0-4 /hpf (0-2); Squamous Epithelial Cell Urine RARE /hpf (0-5); WBC Urine RARE /hpf (0-5)
[2021-05-16 16:32] LABS: Add Urine Culture? No
[2021-05-16 16:52] LABS: Troponin(5th) Baseline 7 ng/L (0-10)
[2021-05-16 16:55] LABS: Alanine Aminotransferase 26 U/L (0-33); Albumin Level 4.4 g/dL (3.5-5.2); Alkaline Phosphatase 95 IU/L (35-105); Anion Gap 13.7 (5-19); Aspartate Amino Transferase 16 U/L (0-32); Blood Urea Nitrogen 21 mg/dL (6-20); Calcium 9.2 mg/dL (8.5-10.5); Carbon Dioxide 27 mmol/L (22-29); Chloride 101 mmol/L (98-107); Globulin 2.5 g/dL (1.3-4.6); Glomerular Filtration Rate 65.2 mL/min (90-130); Glucose 75 mg/dL (65-115); Magnesium 2.5 mg/dL (1.7-2.3); Osmolality Calculated 288 mOsm/kg (285-295); Potassium 3.7 mmol/L (3.5-5.1); Sodium 138 mmol/L (136-145); Total Bilirubin 0.3 mg/dL (0.15-1.2); Total Protein 6.9 g/dL (6.6-8.7)
[2021-05-16] MEDS: sodium chloride 0.9% 1,000 ML 100 ML IV (20:20)
--- NOTE | 2021-05-16 20:34 | PM.HP ---
Providers/Chief Complaint Admitting Physician: Jarocho Cisneros MD Primary Care Provider: Priyank Stafford NP Chief Complaint: AMS from covid/unbalanced History of Present Illness 55-year-old female with a past medical history significant for anxiety, PTSD, gout, migraines, restless leg syndrome, hyperlipidemia, hypothyroidism, chronic stage 3 kidney disease and covid-19 infection s/p monoclonal ab infusion who presented to ER with difficulty ambulating. Patient stated she initially noticed difficulty with texting on her phone. [place] both upper extremities were weak however felt right side was greater than left. This subsequently was followed about unsteady gait. Feeling dizziness with leaning towards right with ambulation. [place] ?clumsy?. Denied fever, chills, however noted nausea without emesis. Also noted a few episodes of loose watery diarrhea. Denied chest pain or dyspnea. Upon arrival to ER her initial laboratory work up showed A WBC of 10.3 a WBC of 10.3, hemoglobin of 13.8, hematocrit of 43.1 and platelet count of 422. Sodium 138, potassium 3.7, chloride 101, bicarb 27, BUN 21 and creatinine 0.9. Magnesium of 2.5. LFTs within normal limits. Troponin trend negative. Urinalysis was negative.Imaging studies included a head CT which did not show any evidence of acute intracranial pathology. Patient NIH of zero at the time of my eval. Review of Systems General: Reports: 10 or more systems reviewed and unremarkable except in HPI and below Medications/Allergies Home Medications Medication Instructions Recorded Confirmed Last Taken Type ropinirole 2 mg tablet,extended 2 mg PO BID tab 07/03/19 02/25/21 07/20/20 History release 24 hr allopurinol 100 mg tablet 100 mg PO DAILY 10/29/19 02/25/21 07/20/20 History furosemide 40 mg tablet 80 mg PO QAM tab 12/02/20 02/25/21 Unknown History sumatriptan succinate 6 mg/0.5 mL SUBCUT 12/02/20 02/25/21 Unknown History subcutaneous pen injector clonazepam 0.5 mg tablet 0.5 mg PO BID PRN #60 tab 01/28/21 02/25/21 Unknown Rx fluoxetine 20 mg capsule 60 mg PO DAILY #270 cap 01/28/21 02/25/21 Unknown Rx lamotrigine 100 mg tablet 150 mg PO DAILY #135 tab 01/28/21 02/25/21 Unknown Rx trazodone 100 mg tablet 100 mg PO .HS #30 tab 01/28/21 02/25/21 Unknown Rx loratadine 10 mg tablet 10 mg PO DAILY 02/25/21 02/25/21 Unknown History dexamethasone [Decadron] 6 mg PO DAILY #7 tab 05/08/21 Unknown Rx Allergies Allergy/AdvReac Type Severity Reaction Status Date / Time No Known Allergies Allergy Verified 05/08/21 09:59 PFSH Acute PFSH: Medical History Dependent personality disorder Gastric polyp Generalized anxiety disorder Gout Hyperlipidemia Hypothyroidism In past. Migraine Obsessive-compulsive disorder, unspecified PTSD (post-traumatic stress disorder) Stage 3 chronic kidney disease Surgical History History of axillary surgery (~03/2016) Exploratory left armpit surgery. Performed by Dr. Chen at [facility] [place] in [place], [place]. History of carpal tunnel surgery Both, Left wrist twice, right wrist once History of open reduction and internal fixation (ORIF) procedure (10/11/10) Right clavicle. Performed by Dr. Monroe at [facility] [place] in [place], [place]. History of prolapse of bladder (~2008) bladder mesh History of removal of retained hardware (04/26/11) With open reduction and internal fixation of Rt clavicle. Performed by Dr. Hossein Ortiz at [facility] [place] in [place], [place]. History of removal of retained hardware (12/12/12) Right shoulder. Performed by Dr. Hossein Ortiz at [facility] [place] in [place], [place]. History of suburethral sling procedure (08/29/07) Anterior vaginal repair & transobturator suburethral sling; Dx: Cystocele, BRANDEN. Performed by Dr. Rosenberg at [facility] [place] in [place], [place]. History of tubal ligation (~1996) Hx of bilateral breast reduction surgery (~2002) Hx of colonoscopy (~2020) Hx of ectopic (~1986) Laparoscopic treatment of ectopic Hx of esophagogastroduodenoscopy (~2020) S/P laparoscopic assisted vaginal hysterectomy (LAVH) (01/21/08) With anterior repair. Performed by Dr. Bueno at [facility] in [place], [place] S/P laparoscopic cholecystectomy (~1996) Performed at [facility] [place] in [place], [place] Family History Brother Hypertension Heart disease Colon cancer Father Hypertension Grandmother Diabetes Maternal Heart disease Maternal Unknown No problems noted. Mother Cancer leukemia, hodgkins Grandfather Cancer lung cancer, maternal Social History Smoking and tobacco status: never smoked Alcohol intake: current Alcohol intake frequency: holidays/special occasions only Vitals/I&O/Wt Last Vital Signs Temp 97.6 F 05/16/21 20:00 Pulse 73 05/16/21 20:00 Resp 18 05/16/21 20:00 BP 78/66 05/16/21 20:00 Pulse Ox 99 05/16/21 20:00 05/16/21 05/16/21 05/16/21 06:59 14:59 22:59 Intake Total 1000 / 1000 Balance 1000 / 1000 Weight last 48 hrs Weight 88.706 kg Weight 81.647 kg Physical Exam Narrative: EXAM NARRATIVE: General: Alert, Awake oriented x 3 HEENT : Grossly unremarkable CVS; RRR Chest : CTABL Abd: Soft,NT,ND Ext: No edema Neuro: CN-2-12, MS 5/5, no sensory deficits Data : 05/16/21 15:50 05/16/21 15:50 A&P Assessment and plan (1) Ataxia: Status: Acute (2) COVID-19: Status: Acute (3) Hyperlipidemia: Status: Acute (4) Gout: Status: Acute (5) Stage 3 chronic kidney disease: Status: Acute Additional A&P Information Unsteady Gait with R>L weakness r/o CVA Head CT w/o contrast - Negative NIH - 0 Continue Neuro-checks Cardiac telemetry Aspirin 81 mg PO daily in am Carotid US - Pending Echo - pending MRI brain w/o contrast PT consult Fall precautions Chronic Kidney Disease stage 3 Creatinine 0.9 Bmp in am COVID-19 Recently infection S/p monoclonal ab Asymptomatic. Hyperlipidemia Lipitor 20 mg PO qhs started Lipid panel in am Hypothyroidism TSH in am Not currently on tx OCD/PTSD/CATY Verify and resume home meds DVT ppx Lovenox Attestations Medical Necessity Statement*: Anticipate <less 2 midnight stay in hospital for eval and treatment Time Spent in Patient Care: Greater than 35 minutes (>than 50% of time spent in counselling and/or direct pt care on unit). Coding Level of Care Code Acute Independent Living Advisor for Chg Fwd Diagnoses Ataxia R27.0 COVID-19 U07.1 Hyperlipidemia E78.5 Gout M10.9 Stage 3 chronic kidney disease N18.30
[2021-05-16] MEDS: atorvastatin 40 mg Tablet 20 MG PO (21:52)
[2021-05-17] VITALS (11 sets, daily range): BP systolic 80–112; BP diastolic 50–70; PULSE 52–70; RESP 16–18; TEMP 36.5–36.7; O2SAT 93–99
[2021-05-17 05:40] LABS: Basophils % 0.2 %; Eosinophils # 0.3 10^3/uL (0.0-0.8); Eosinophils % 3.3 %; Hematocrit 38.5 % (37.0-47.0); Hemoglobin 12.2 g/dL (11.5-15.3); Lymphocytes # 3.3 10^3/uL (0.8-4.8); Lymphocytes % 38.9 %; Mean Corpuscular HGB Conc 31.7 g/dL (30.0-36.0); Mean Corpuscular Hemoglobin 29.5 pg (28.0-34.0); Mean Platelet Volume 10.2 fL (7.4-10.4); Monocytes # 0.6 10^3/uL (0.2-0.9); Monocytes % 6.8 %; Neutrophils # 4.19 10^3/uL (1.8-7.7); Neutrophils % 49.2 %; Nucleated Red Blood Cells % 0 %; Platelet Count 337 10^3/cmm (130-400); Red Blood Count 4.14 10^6/uL (4.1-5.3); Red Cell Distribution Width 13.7 % (12.1-15.1); White Blood Count 8.5 10^3/uL (4.0-10.0)
--- NOTE | 2021-05-17 06:00 | USCV_ITS ---
Gabi Campbell Age: 55 Gender: F : 1965 Exam Date: 05/17/2021 08:31 Ordering Phys: Chele Hood MD Technologist: Maycol Laguna Exam Location: [facility] [place] Indication: TIA Risk Factors: Previous Vascular Surgery: Right Brachial BP: / Left Brachial BP: / Right Left Velocity (cm/s) Spectral Plaque Velocity (cm/s) Spectral Plaque Syst/Diast Broadening Syst/Diast Broadening 57.20/ 15.70 Prox CCA 71.40 / 19.80 58.30/ 18.60 Mid CCA 96.30 / 23.30 49.10/ 17.10 Distal CCA 41.70 / 15.00 78.90/ 29.60 Prox ICA 99.40 / 35.70 53.70/ 24.50 Mid ICA 58.90 / 22.20 50.30/ 21.60 Distal ICA 37.60 / 14.50 66.80 ECA 70.00 0.92 ICA/CCA 0.61 Antegrade Vertebral Antegrade 31.10/ 10.10 cm/s 37.60/ 14.50 cm/s Tri Subclavian Tri 97.10 99.40 CONCLUSIONS Right ICA stenosis <50%. Left ICA stenosis <50%. Normal antegrade Doppler flow noted in the right vertebral artery. Normal antegrade Doppler flow noted in the left vertebral artery. Se Santana MD (Electronically Signed) Final Date: 17 May 2021 17:21 S
[2021-05-17 06:07] LABS: Anion Gap 12.9 (5-19); Blood Urea Nitrogen 18 mg/dL (6-20); Calcium 8.2 mg/dL (8.5-10.5); Carbon Dioxide 24 mmol/L (22-29); Chloride 107 mmol/L (98-107); Chol HDL Ratio 2.62 mg/dL (0.0-4.40); Cholesterol 186 mg/dL (0-200); Glomerular Filtration Rate 65.2 mL/min (90-130); Glucose 97 mg/dL (65-115); HDL Cholesterol 71 mg/dL (60-100); LDL Cholesterol Calculated 61 mg/dL (50-129); LDL HDL Ratio 0.86 RATIO (0.00-3.22); Osmolality Calculated 292 mOsm/kg (285-295); Potassium 3.9 mmol/L (3.5-5.1); Sodium 140 mmol/L (136-145); Triglycerides 268 mg/dL (0-150)
[2021-05-17] MEDS: sodium chloride 0.9% 1,000 ML 100 ML IV (06:11)
[2021-05-17 06:27] LABS: Estmated Average Glucose 103; Hemoglobin A1C 5.2 % (4.0-6.0)
--- NOTE | 2021-05-17 10:06 | PC.CHAP ---
Pastoral Care Encounter/Spiritual Assessment Type of Contact [] Declined intake nurse visit [] Patient/Family/Request visit [] Outpatient visit [] Follow-up visit [] Physician referral [] Code/Alert [x] Routine visit [] Staff referral [] Actively dying [] Patient sleeping [] Family support [] [] Out of room [] Palliative care [] [] Receiving care in room [] Pre-surgical visit [] Trauma [] Long length of stay [] ICU visit [] Other: Relational/Emotional Strength [x] Patient feels connected with others/family/visitors/staff [] Distress [] Loneliness/isolation [] Abandonment Spirituality of Patient [x] Person of Madleyn [x] Attends Latter-Day of their Madelyn [x] Believes in Prayer [] Reads Bible or Pentecostal materials [] There are Spiritual issues to be addressed Brake Operator Interventions [x] Prayer [] Active listening [] Non-anxious presence [] Spiritual/emotional support [] Crisis/trauma care [] Spiritual counseling [] Bereavement support [] Provided bereavement packet [] Provided Bible/devotional materials [] Provided toy/stuffed animal, coloring book to patient or family member [] Provided Communion [] Anointing/[place] [] Salvation [x] Completed spiritual assessment [] Other: Impact on Illness or Injury [] Angry [] Fearful [] Anxious [] Often cries [] Exhaustion [] Unable to work [] Unable to attend catholic [] Unable to walk/stand [] Unable to read [] Unable to drive [] Unable to eat/drink [] Unable to sleep [] Unable to be with family [] Patient intubated [] Other: Summary Time spent with patient 10 min
[2021-05-17] MEDS: aspirin 81 mg Chew Tablet PO (10:35)
[2021-05-17] MEDS: acetaminophen 500 mg Tablet 650 MG PO (10:35)
--- NOTE | 2021-05-17 10:56 | MR_ITS ---
WS: [id number] MR VENOGRAM WITHOUT GADOLINIUM ENHANCEMENT. INDICATION: Dural sinus thrombosis TECHNIQUE: MR venography with [id number]-ro-[id number] technique. Maximum intensity projection images. FINDINGS: Normal sagittal sinus. Normal straight sinus. Normal internal cerebral veins. Right dominan t transverse sinus. Sigmoid sinuses are patent. Distal jugular veins are patent. No evidence of dural sinus thrombosis. MR/[place] [id number] IMPRESSION: No evidence of dural sinus thrombosis.
--- NOTE | 2021-05-17 11:44 | ECG_ITS ---
[facility] Test Date: 2021-05-17 Pat Name: Gabi Campbell Department: Room: 254 Gender: Female Healthcare Management Consultant: : 1965 Requested By: Tobi Zepeda Order Number: [id number] Reading MD: ROBBY LEE Measurements Intervals [place] Rate: 52 P: 27 LA: 170 QRS: 50 QRSD: 85 T: 30 QT: 432 QTc: 404 Interpretive Statements SINUS BRADYCARDIA POSSIBLE ANTERIOR MYOCARDIAL INFARCTION , OF INDETERMINATE AGE [30 ms Q WAVE IN V3/V4, OR R < 0.2 mV IN V4] POSSIBLE INFERIOR MYOCARDIAL INFARCTION , PROBABLY OLD [30 ms Q WAVE IN II/aVF] INTERPRETATION BASED ON A DEFAULT AGE OF 40 YEARS Compared to ECG 05/16/2021 15:49:09 No significant changes Electronically Signed On 05-17-2021 12:50:42 BOAT CARPENTER by ROBBY LEE [email or web address]/store/[id number] f
--- NOTE | 2021-05-17 11:47 | PC.NURSE ---
Patient complaining of chest pain at this time. New orders placed for EKG and troponin levels. Dr. Zepeda notified of patients complaints. New orders received to place on telemetry.
--- NOTE | 2021-05-17 12:51 | PC.PHAR ---
pt states she takes care of her own medications-pt verified medications- notes are made in the pharmacy comments
[2021-05-17 13:23] LABS: Troponin T (5th) Once 6 ng/L (0-10)
[2021-05-17] MEDS: FUROsemide 40 mg Tablet 80 MG PO (16:37)
--- NOTE | 2021-05-17 17:33 | PM.DCS ---
Discharge Providers Date of Admission: 05/16/21 17:27 Date of Discharge: May 17, 2021 Attending Provider at Admission: Jarocho Cisneros MD Attending Provider at Discharge: Tobi Zepeda MD Primary Care Provider: Priyank Stafford NP Diagnoses at Discharge Discharge Diagnosis (1) Ataxia: Status: Acute (2) COVID-19: Status: Acute (3) Hyperlipidemia: Status: Acute (4) Gout: Status: Acute (5) Stage 3 chronic kidney disease: Status: Acute Reason for Visit Reason for Visit: AMS from covid/unbalanced Hospital Course Hospital Course This is a 55-year-old female with a past medical history of anxiety, PTSD, gout, migraines, hyperlipidemia, hypothyroidism, CKD stage III, recent history of COVID-19 infection status post monoclonal infusion who presents to [facility] due to complaints of trouble coordinating, difficulty ambulating, right-sided weakness, right hand clumsiness, For her right-sided hand clumsiness, right-sided weakness, NIH stroke scale on admission was 0, CT of the head did not show any acute stroke, MRI of the brain no acute stroke, MRV of the brain no radiographic evidence of dural venous sinus thrombosis, carotid artery ultrasound no hemodynamically significant stenosis, cardiac echocardiogram showed an ejection fraction of 65%, patient worked with physical therapy, no significant focal neurologic deficits discerned. Likely patient has experienced a transient ischemic attack, associate with hypercoagulability associated with COVID-19, discharged on aspirin 81 mg daily, Plavix first 21 days, bridging therapy, atorvastatin 40 mg daily, follow-up with neurology in 1 month. Patient was advised if she were to have recurrent strokelike symptoms call 911 Patient does describe brain fog associated with her COVID-19 infection, I have advised her to discuss with primary care provider about interventions including Ritalin, Elavil, Inderal Physical Exam Const: COMMON NORMALS: no acute distress and patient oriented x3 Resp: COMMON NORMALS: normal respiratory effort, No retractions, No use of accessory muscles and clear to auscultation bilaterally AUSCULTATION: clear to auscultation bilaterally Cardio: COMMON NORMALS: regular rate, regular rhythm, S1 normal heart sound present and S2 normal heart sound present RATE: regular rate RHYTHM: regular rhythm HEART SOUNDS: S1 normal heart sound present and S2 normal heart sound present GI: COMMON NORMALS: Normal to inspection, nondistended, normoactive bowel sounds present, Soft to palpation and non-tender PALPATION: Yes Soft to palpation Extremity: COMMON NORMALS: no pedal edema Neuro: COMMON NORMALS: patient oriented x3 Psych: COMMON NORMALS: mental status grossly normal Discharge Data Data Completed and Pending: Completed Studies During Hospitalization Category Date Time Status CT head wo con* [id number] Stat Cat Scan 05/16/21 15:38 Completed MR head wo/w con [id number] Urgent MRI 05/17/21 19:52 [place] [id number] Routine MRI 05/17/21 10:56 Completed CV carotid duplex BI* [id number] Routine Ultrasound 05/17/21 23:21 Completed CV. echo complete * [id number] Routine Ultrasound 05/17/21 06:00 Completed Labs from last 24 hours 05/17/21 05/17/21 05/17/21 12:49 05:02 05:02 WBC RBC Hgb Hct MCV MCH MCHC RDW Plt Count MPV Neut % (Auto) Lymph % (Auto) [place] % (Auto) Eos % (Auto) Baso % (Auto) Neut # (Auto) Lymph # (Auto) [place] # (Auto) Eos # (Auto) Baso # (Auto) Nucleated RBC % (a uto) Nucleated RBCs # Sodium 140 Potassium 3.9 Chloride 107 Carbon Dioxide 24 Anion Gap 12.9 BUN 18 Creatinine 0.9 GFR Calculation 65.2 L Glucose 97 Estimat Average Gl ucose 103 Hemoglobin A1c 5.2 Calculated Osmolal ity 292 Calcium 8.2 L Troponin T Gen 5 n g/L 6 Troponin T 120 Min [place]s Delta Troponin T Triglycerides 268 H Cholesterol 186 LDL Cholesterol, C alc 61 HDL Cholesterol 71 LDL/HDL Ratio 0.86 Cholesterol/HDL Ra norbert 2.62 05/17/21 05/16/21 05/16/21 05:02 18:25 17:45 WBC 8.5 RBC 4.14 Hgb 12.2 Hct 38.5 MCV 93.0 MCH 29.5 MCHC 31.7 RDW 13.7 Plt Count 337 MPV 10.2 Neut % (Auto) 49.2 Lymph % (Auto) 38.9 [place] % (Auto) 6.8 Eos % (Auto) 3.3 Baso % (Auto) 0.2 Neut # (Auto) 4.19 Lymph # (Auto) 3.3 [place] # (Auto) 0.6 Eos # (Auto) 0.3 Baso # (Auto) 0.0 Nucleated RBC % (a uto) 0 Nucleated RBCs # 0.0 Sodium Potassium Chloride Carbon Dioxide Anion Gap BUN Creatinine GFR Calculation Glucose Estimat Average Gl ucose Hemoglobin A1c Calculated Osmolal ity Calcium Troponin T Gen 5 n g/L Troponin T 120 Min [place]rews 6.00 Cancelled Delta Troponin T -1.00 L Cancelled Triglycerides Cholesterol LDL Cholesterol, C alc HDL Cholesterol LDL/HDL Ratio Cholesterol/HDL Ra norbert Vitals: Last Vital Signs Temp 98.1 F 05/17/21 16:00 Pulse 52 L 05/17/21 16:00 Resp 17 05/17/21 16:00 BP 100/62 05/17/21 16:00 Pulse Ox 98 05/17/21 16:00 Discharge Plan Discharge Patient Disposition: Home Condition: Stable Prescriptions: New atorvastatin 40 mg Tablet 40 mg PO BEDTIME 30 Days Qty: 30 RF: 0 clopidogrel [Plavix] 75 mg tablet 75 mg PO DAILY 21 Days Qty: 21 RF: 0 aspirin [Adult Low Dose Aspirin] 81 mg tablet,delayed release (DR/EC) 81 mg PO DAILY 30 Days Qty: 30 RF: 0 Continued allopurinol 100 mg tablet 100 mg PO DAILY RF: 0 clonazepam 0.5 mg tablet 0.5 mg PO BID PRN (Reason: Anxiety) Qty: 60 RF: 1 sumatriptan succinate [Imitrex STATdose Pen] 6 mg/0.5 mL pen injector See Rx Instructions .ROUTE .COMPLEX RF: 0 multivitamin Tablet 1 tab PO DAILY RF: 0 cyclobenzaprine 10 mg tablet 10 mg PO BID PRN (Reason: Muscle Spasm) RF: 0 ropinirole 1 mg tablet 1 mg PO DAILY RF: 0 albuterol sulfate 2.5 mg /3 mL (0.083 %) Solution For Nebulization 2.5 mg INHALATION Q4H PRN (Reason: Shortness Of Breath) RF: 0 cetirizine 10 mg tablet 10 mg PO DAILY RF: 0 ropinirole 2 mg tablet 2 mg PO BID RF: 0 montelukast 10 mg tablet 10 mg PO BEDTIME RF: 0 fluticasone propionate 50 mcg/actuation spray,suspension 2 spray INTRANASAL DAILY RF: 0 Vitamin B-12 1 tab PO DAILY RF: 0 Vitamin C 1 tab PO DAILY RF: 0 trazodone 100 mg tablet 100 mg PO BEDTIME RF: 0 Prozac 20 mg capsule 20 mg PO DAILY RF: 0 Lamictal 100 mg tablet 150 mg PO BEDTIME RF: 0 Changed furosemide [Lasix] 40 mg tablet 40 mg PO QAM Qty: 0 RF: 0 Discontinued Decadron 6 mg tablet 6 mg PO DAILY RF: 0 Discharge Orders: Discharge Order (Routine); Ordered 05/17/21 Ordered By: Tobi Zepeda Referrals: Priyank Stafford NP [Primary Care Provider] - Discharge Diet: Cardiac Discharge Activity: Resume usual activity Patient Instructions: Opioid Safety Activity Restrictions/Additional Instructions: -Please take aspirin 81 mg daily, indefinitely -Please take Plavix 75 mg daily for 21 days then stop -Please take atorvastatin 40 mg daily indefinitely -Continue to monitor for post Covid symptoms such as brain fog, and so go to the primary care provider for discussion of options including Ritalin, Elavil, Inderal -If any strokelike symptoms please call 911 Discharge Attestations Time Spent in Discharge Care*: less than 30 min Quality Metrics Clinical Quality Measures During this hospital stay, did patient experience: Stroke Contraindication to Antithrombotic: Antithrombotic prescribed Contraindication to Anticoagulation: Overlap treatment not indicated Contraindication to Statin: Statin prescribed Coding Level of Care Code Acute [facility] note Diagnoses Ataxia R27.0 COVID-19 U07.1 Hyperlipidemia E78.5 Gout M10.9 Stage 3 chronic kidney disease N18.30
--- NOTE | 2021-05-17 19:52 | MR_ITS ---
WS: [id number] MRI HEAD WITH CONTRAST TECHNIQUE: Sagittal T1, T2 axial, T2 axial FLAIR, axial susceptibility weighted imaging, axial diffus ion weighted images, and coronal T2 images were obtained. Pre and post-T1 axial and post T1 coronal i mages. ADC and FSPGR images. CLINICAL INFORMATION: ataxia COMPARISON: CT May 16, 2021 FINDINGS: No evidence of restricted diffusion to suggest acute ischemia. Ventricular system and basal cisterns are patent. Normal samayoa-white differentiation. Mild small vessel changes. Mild parenchymal volume los s. Normal posterior fossa. Normal vascular flow voids at the skull base. No extra-axial fluid collect ions. No evidence of mass or mass effect. Mild mucosal thickening in the paranasal sinuses. Mastoid air cells are well aerated. No hemosiderin on susceptibly weighted images. Normal optic chiasm and pituitary infundibulum. Cavernous sinuses and Meckel's cave are normal. Normal temporal lobes and hippocampal formations. No abnormal intracranial enhancement. Normal dural venous sinuses. MR/MR head wo/w con [id number] IMPRESSION: 1. No evidence of restricted diffusion to suggest acute ischemia. 2. Mild small vessel changes with mild parenchymal volume loss. 3. No abnormal intracranial enhancement. Normal visualized dural venous sinuse s. 4. Normal posterior fossa. Mastoid air cells are well aerated. 5. No hemosiderin on susceptibly weighted images.
--- NOTE | 2021-05-17 23:21 | USCV_ITS ---
Gabi Campbell Age: 55 Gender: F : 1965 Exam Date: 05/17/2021 09:00 Ordering Phys: Chele Hood MD Technologist: DOE Exam Location: [facility] [place] Indication: TIA BP: / HR: Rhythm: Sinus Technical Quality: Adequate MEASUREMENTS (Male / Female) Normal Values FINDINGS Left Ventricle Normal left ventricular size, systolic function and wall thickness, with no regional wall motion abnormalities. Left ventricular ejection fraction is estimated at 65 %. Normal diastolic function. Right Ventricle Normal right ventricular size and systolic function. RVSP could not be calculated due to incomplete tricuspid regurgitation velocity profile. Right Atrium Normal right atrial size. Right atrial pressure estimated at 3 mm Hg. Left Atrium Normal left atrial size. Mitral Valve Structurally normal mitral valve. No mitral valve stenosis. Trace mitral valve regurgitation. Aortic Valve Aortic valve not well visualized. No aortic valve stenosis. No aortic valve regurgitation. Tricuspid Valve Structurally normal tricuspid valve. Trace tricuspid valve regurgitation. Pulmonic Valve Pulmonic valve not well visualized. No pulmonary valve regurgitation. Pericardium No pericardial effusion. Aorta Normal size aortic root and proximal ascending aorta. Normal- sized inferior vena cava with less than 50% respiratory variation. CONCLUSIONS 1. Normal left ventricular size, systolic function and wall thickness, with no regional wall motion abnormalities. Left ventricular ejection fraction is estimated at 65 %. Normal diastolic function. 2. Normal right ventricular size and systolic function. 3. No significant valvular abnormality. 4. When compared to previous echocardiogram dated 06/13/2017, there may not have been any significant change. Delia Bah MD (Electronically Signed) Final Date: 17 May 2021 13:45 S
== END 2021-05-17 18:50 | disposition home or self-care (01) ==
LOC: ER 17:53 → MEDSURG 17:58
PROVIDERS: Hospitalist; Admitting Provider Internal Medicine; Emergency Provider Emergency Medicine; PCP Nurse Practitioner Family; Visit Provider Family Medicine
DX: U07.1 COVID-19 (principal); R27.0 Ataxia, unspecified; E78.5 Hyperlipidemia, unspecified; M10.9 Gout, unspecified; N18.30 Chronic kidney disease, stage 3 unspecified; F60.7 Dependent personality disorder; F41.1 Generalized anxiety disorder; E03.9 Hypothyroidism, unspecified; F43.10 Post-traumatic stress disorder, unspecified
CPT/HCPCS: 36415; 70450; 70544; 70553; 80048; 80053; 80061; 81001; 83036; 83735; 84484; 84703; 85025; 93005; 93306; 93880; 96360; 96361; 97116; 97161; 97165; 99285; A9579; G0378; J7030

== ENCOUNTER 2021-05-21 10:55 | Emergency (ER) | payer MEDICARE, SELFPAY ==
--- NOTE | 2021-05-21 11:00 | ECG_ITS ---
[facility] Test Date: 2021-05-21 Pat Name: Gabi Campbell Department: Room: Gender: Female Surgery Nurse: : 1965 Requested By: Ebony House Order Number: [id number] Dustin MD: Chang Eli M.D. Measurements Intervals [place] Rate: 56 P: -15 [place]: 154 QRS: 55 QRSD: 80 T: 44 QT: 406 QTc: 393 Interpretive Statements SINUS BRADYCARDIA Compared to ECG 05/17/2021 11:47:16 Myocardial infarct finding no longer present Electronically Signed On 05-23-2021 13:20:26 WELDING ENGINEER by Chang Eli M.D. [email or web address] Technologyrobert h. ballard rehabilitation hospitalFINsix Corporation/store/OM/[id number]
--- NOTE | 2021-05-21 11:00 | CTR_ITS ---
PROCEDURE INFORMATION: Exam: CT Head Without Contrast Exam date and time: 05/21/2021 11:00 AM Age: 55 years old Clinical indication: Pain; Headache; Patient HX: History--c/o RUSSELL x 5 days w nosebleed last night; Additional info: TIA TECHNIQUE: Imaging protocol: Computed tomography of the head without contrast. Radiation optimization: All CT scans at this facility use at least one of these dose optimization techniques: automated exposure control; mA and/or kV adjustment per patient size (includes targeted exams where dose is matched to clinical indication); or iterative reconstruction. COMPARISON: MR head wo/w con [id number] 05/17/2021 3:26 PM RADIATION DOSE METRICS: Total DLP (mGy-cm): 839.94 FINDINGS: Brain: No intracranial hemorrhage, edema or other acute abnormalities are seen in the brain. There is mild generalized chronic atrophy. There is no mass effect or midline shift. Cerebral ventricles: No ventriculomegaly. Paranasal sinuses: Visualized sinuses are unremarkable. No fluid levels. Mastoid air cells: Visualized mastoid air cells are well aerated. Bones/joints: Unremarkable. No acute fracture. Soft tissues: Unremarkable. CT/CT head wo con* [id number] IMPRESSION: No acute intracranial abnormality. Radiation Dose CTDIVOL = (mGy): DLP = 839.94 (mGy-cm)
[2021-05-21 11:08] VITALS: BP 140/93; PULSE 84; RESP 16; TEMP 36.5; O2SAT 99
--- NOTE | 2021-05-21 11:25 | ED_ITS ---
HPI - Headache General: Chief Complaint: Headache Stated Complaint: H/A:RECENT TIA, SENT BY PCP FOR [facility] Time Seen by Provider: 05/21/21 11:24 History of Present Illness: HPI Narrative: Ms. Campbell is a 55-year-old lady with history of hypertension, hyperlipidemia, history of Covid remotely, CKD, recent hospitalization for TIA like symptoms and history of migraines who presents emergency department due to headache. She reports her baseline headach es are typically well controlled and she uses Imitrex rarely as well as getting Botox injections. Since her hospitalization for TIA she has had near constant headache that is progressively worsened. Today she describes it as like her head is can a pop off. Symptom intensity is severe. No new associated neurologic symptoms. No specific exacerbating or relieving factors identified Review of Systems General: Reports: 10 or more systems reviewed and unremarkable except in HPI and below PFSH ED PFSH: Medical History Dependent personality disorder Gastric polyp Generalized anxiety disorder Gout Hyperlipidemia Hypothyroidism In past. Migraine Obsessive-compulsive disorder, unspecified PTSD (post-traumatic stress disorder) Stage 3 chronic kidney disease Surgical History History of axillary surgery (~03/2016) Exploratory left armpit surgery. Performed by Dr. Chen at [facility] in [place], [place]. History of carpal tunnel surgery Both, Left wrist twice, right wrist once History of open reduction and internal fixation (ORIF) procedure (10/11/10) Right clavicle. Performed by Dr. Monroe at [facility] in [place], [place]. History of prolapse of bladder (~2008) bladder mesh History of removal of retained hardware (04/26/11) With open reduction and internal fixation of Rt clavicle. Performed by Dr. Hossein Ortiz at [facility] in [place], [place]. History of removal of retained hardware (12/12/12) Right shoulder. Performed by Dr. Hossein Ortiz at [facility] in [place], [place]. History of suburethral sling procedure (08/29/07) Anterior vaginal repair & transobturator suburethral sling; Dx: Cystocele, BRANDEN. Performed by Dr. Rosenberg at [facility] in [place], [place]. History of tubal ligation (~1996) Hx of bilateral breast reduction surgery (~2002) Hx of colonoscopy (~2020) Hx of ectopic (~1986) Laparoscopic treatment of ectopic Hx of esophagogastroduodenoscopy (~2020) S/P laparoscopic assisted vaginal hysterectomy (LAVH) (01/21/08) With anterior repair. Performed by Dr. Bueno at [facility] in [place], [place] S/P laparoscopic cholecystectomy (~1996) Performed at [facility] in [place], [place] Family History Brother Hypertension Heart disease Colon cancer Father Hypertension Grandmother Diabetes Maternal Heart disease Maternal Unknown No problems noted. Mother Cancer leukemia, hodgkins Grandfather Cancer lung cancer, maternal Social History Smoking and tobacco status: never smoked Alcohol intake: current Alcohol intake frequency: holidays/special occasions only Physical Exam Narrative: EXAM NARRATIVE: GENERAL/CONSTITUTIONAL - well-appearing. Uncomfortable Eyes - PERRL, no conjunctival injection ENMT - Atraumatic external nose and ears. Moist mucous membranes NECK - supple. trachea midline. No meningitis signs CARDIOVASCULAR - regular rate and rhythm. Peripheral pulses 2+ and equal RESPIRATORY -clear to auscultation bilaterally. No retractions or accessory muscle use. ABDOMEN/GI - Nontender/Nondistended. MSK - Extremities without obvious deformity or tenderness to palpation SKIN - Warm, Dry NEURO - alert and appropriately oriented. Cranial nerves II through XII, coordination, strength and sensation intact. Course ED course: - Patient was seen and evaluated by me at bedside - Patient placed on cardiac monitors, IV access obtained - Initial evaluation notable for uncomfortable appearance due to headache. No focal neurologic deficits. No meningitic signs. - Based on description of symptoms migraine treatment ordered - Labs notable for no leukocytosis, normal hemoglobin. Metabolic panel notable for hyperkalemia of unclear etiology, renal function is normal. IV fluids have been given. - Imaging notable for negative head CT - Upon serial reexamination after treatment the patient was improved with near complete resolution of headache - Based on patient history, evaluation, labs, and imaging as interpreted the most likely cause of the patient's condition is headache likely secondary to headache disorder - The results of ED evaluation were discussed with the patient including prescriptions and/or symptomatic cares (if applicable) including appropriate and responsible use, followup plan, and return precautions. I discussed with patient the finding hyperkalemia. Recommended repeat which the patient declined, she plans to have labs drawn Monday. I discussed risks of hyperkalemia including cardiac arrhythmia and . Fluids most likely will improve patient's hyperkalemia. No evidence of peaked T waves on twelve-lead EKG The patient verbalized understanding and still desired discharge. - Patient discharged in satisfactory condition. Vital Signs: Vital signs: Vital Signs Temperature 97.7 F 05/21/21 16:16 Pulse Rate 84 05/21/21 16:16 Respiratory Rate 16 05/21/21 16:16 Blood Pressure 140/93 05/21/21 16:16 Pulse Oximetry 99 05/21/21 16:16 MDM - Headache Medical Records: Attestation: I reviewed the patient's medical records. Lab Data: Attestation: I reviewed the patient's lab results. Labs: Lab Results 05/21/21 05/21/21 05/21/21 11:06 13:07 13:25 WBC 6.8 10^3/uL 10^3/ uL (4.0-10.0) RBC 4.87 10^6/uL 10^6 /uL (4.1-5.3) Hgb 14.6 g/dL g/dL (11.5-15.3) Hct 45.6 % % (37.0-47.0) MCV 93.6 fl fl (81-99) MCH 30.0 pg pg (28.0-34.0) MCHC 32.0 g/dL g/dL (30.0-36.0) RDW 13.6 % % (12.1-15.1) Plt Count 350 10^3/cmm 10^3 /cmm (130-400) MPV 10.2 fL fL (7.4-10.4) Neut % (Auto) 58.7 % % Lymph % (Auto) 31.3 % % Clinch % (Auto) 6.7 % % Eos % (Auto) 2.6 % % Baso % (Auto) 0.3 % % Neut # (Auto) 4.00 10^3/uL 10^3 /uL (1.8-7.7) Lymph # (Auto) 2.1 10^3/uL 10^3/ uL (0.8-4.8) Clinch # (Auto) 0.5 10^3/uL 10^3/ uL (0.2-0.9) Eos # (Auto) 0.2 10^3/uL 10^3/ uL (0.0-0.8) Baso # (Auto) 0.0 10^3/uL 10^3/ uL (0.0-0.1) Nucleated RBC % (a uto) 0 % % Nucleated RBCs # 0.0 /100WBC /100W BC PT INR APTT Sodium Potassium Chloride Carbon Dioxide Anion Gap BUN Creatinine GFR Calculation Glucose POC Glucose 78 mg/dL mg/dL (70-110) Calculated Osmolal ity Calcium Total Bilirubin AST ALT Alkaline Phosphata se Troponin T Gen 5 n g/L Total Protein Albumin Globulin Urine Color Straw (Yellow) Urine Appearance Clear (CLEAR) Urine pH 7 (5-7) Ur Specific Gravit y 1.005 (1.005-1.030) Urine Protein Neg (Negative) Urine Glucose (UA) Norm (Normal) Urine Ketones Negative (Negative) Urine Blood 2+ H (Negative) Urine Nitrate Negative (Negative) Urine Bilirubin Neg (Negative) Urine Urobilinogen Norm mg/dL mg/dL (Negative) Ur Leukocyte Nevaeh ase Negative (Negative) Urine RBC 0-4 /hpf H /hpf (0-2) Urine WBC None /hpf /hpf (0-5) Ur Squamous Epith Cells 0-4 /hpf H /hpf (0-5) Amorphous Sediment Not Reportable Urine Bacteria Trace /hpf /hpf (NONE) Urine Mucus Trace /hpf /hpf 05/21/21 05/21/21 05/21/21 13:25 13:25 13:25 WBC RBC Hgb Hct MCV MCH MCHC RDW Plt Count MPV Neut % (Auto) Lymph % (Auto) Clinch % (Auto) Eos % (Auto) Baso % (Auto) Neut # (Auto) Lymph # (Auto) Clinch # (Auto) Eos # (Auto) Baso # (Auto) Nucleated RBC % (a uto) Nucleated RBCs # PT 12.20 SECONDS SEC ONDS (12.1-14.9) INR 0.88 (0.8-1.2) APTT 28.0 SECONDS SECO NDS (23.9-36.7) Sodium 141 mmol/L mmol/L (136-145) Potassium 5.9 mmol/L H mmol /L (3.5-5.1) Chloride 102 mmol/L mmol/L (98-107) Carbon Dioxide 24 mmol/L mmol/L (22-29) Anion Gap 20.9 H (5-19) BUN 15 mg/dL mg/dL (6-20) Creatinine 0.9 mg/dL mg/dL (0.5-0.9) GFR Calculation 65.2 mL/min L mL/ min (90-130) Glucose 81 mg/dL mg/dL (65-115) POC Glucose Calculated Osmolal ity 292 mOsm/kg mOsm/ kg (285-295) Calcium 7.7 mg/dL L mg/dL (8.5-10.5) Total Bilirubin 0.5 mg/dL mg/dL (0.15-1.2) AST 22 U/L U/L (0-32) ALT 30 U/L U/L (0-33) Alkaline Phosphata se 101 IU/L IU/L (35-105) Troponin T Gen 5 n g/L 6 ng/L ng/L (0-10) Total Protein 7.2 g/dL g/dL (6.6-8.7) Albumin 4.8 g/dL g/dL (3.5-5.2) Globulin 2.4 g/dL g/dL (1.3-4.6) Urine Color Urine Appearance Urine pH Ur Specific Gravit y Urine Protein Urine Glucose (UA) Urine Ketones Urine Blood Urine Nitrate Urine Bilirubin Urine Urobilinogen Ur Leukocyte Nevaeh ase Urine RBC Urine WBC Ur Squamous Epith Cells Amorphous Sediment Urine Bacteria Urine Mucus EKG Data^: EKG 1: Attestation: I personally reviewed and interpreted this EKG as follows: EKG interpretation date: 05/21/21 EKG interpretation time: 13:15 Interpretation: Twelve-lead EKG shows a regular rhythm at a rate of 56. RI interval 154, QRS duration 80, QTc 398. Normal axis. Interpretation: Sinus rhythm. Nonspecific ST segment abnormalities, no peaked T waves. Discharge Plan Discharge Patient Disposition: Home Clinical Impression: Headache, Hyperkalemia Condition: Stable Prescriptions: No Action allopurinol 100 mg tablet 100 mg PO DAILY RF: 0 clonazepam 0.5 mg tablet 0.5 mg PO BID PRN (Reason: Anxiety) Qty: 60 RF: 1 sumatriptan succinate [Imitrex STATdose Pen] 6 mg/0.5 mL pen injector See Rx Instructions .ROUTE .COMPLEX RF: 0 multivitamin Tablet 1 tab PO DAILY RF: 0 cyclobenzaprine 10 mg tablet 10 mg PO BID PRN (Reason: Muscle Spasm) RF: 0 ropinirole 1 mg tablet 1 mg PO DAILY RF: 0 albuterol sulfate 2.5 mg /3 mL (0.083 %) Solution For Nebulization 2.5 mg INHALATION Q4H PRN (Reason: Shortness Of Breath) RF: 0 cetirizine 10 mg tablet 10 mg PO DAILY RF: 0 ropinirole 2 mg tablet 2 mg PO BID RF: 0 montelukast 10 mg tablet 10 mg PO BEDTIME RF: 0 fluticasone propionate 50 mcg/actuation spray,suspension 2 spray INTRANASAL DAILY RF: 0 Vitamin B-12 1 tab PO DAILY RF: 0 Vitamin C 1 tab PO DAILY RF: 0 trazodone 100 mg tablet 100 mg PO BEDTIME RF: 0 Prozac 20 mg capsule 20 mg PO DAILY RF: 0 Lamictal 100 mg tablet 150 mg PO BEDTIME RF: 0 atorvastatin 40 mg Tablet 40 mg PO BEDTIME 30 Days Qty: 30 RF: 0 Plavix 75 mg tablet 75 mg PO DAILY 21 Days Qty: 21 RF: 0 Lasix 40 mg tablet 40 mg PO QAM Qty: 0 RF: 0 Adult Low Dose Aspirin 81 mg tablet,delayed release (DR/EC) 81 mg PO DAILY 30 Days Qty: 30 RF: 0 Discharge Orders: Discharge ED (Routine); Ordered 05/21/21 Ordered By: Phil Mendez Referrals: Priyank Stafford NP [Primary Care Provider] - Discharge Diet: Usual diet Discharge Activity: Resume usual activity Patient Instructions: Hyperkalemia (ED), Acute Headache (ED) Activity Restrictions/Additional Instructions: Thank you for visiting the emergency department. You were seen and evaluated for headache. The exact cause of your symptoms is unclear though likely related to headache disorder. Incidentally you were found to have high potassium as discussed. Please be sure to have repeat labs drawn on Monday and follow-up closely with your primary care provider. Return to the emergency department for anything that we discussed specifically palpitations, malaise, decreased urine output, or anything else that you are concerned about and feel needs emergency department evaluation. Please return for recurrent headache or any new neurologic symptoms. Coding Level of Care Code ED Pipe Coremaker for Carissa Rocha
[2021-05-21] MEDS: magnesium sulfate premix 2 GM/50 ML PIGGYBACK IV (13:18)
[2021-05-21] MEDS: diphenhydrAMINE 50 mg/mL SDV 1mL 25 MG IVP (13:18)
[2021-05-21] MEDS: acetaminophen 500 mg Tablet 1000 MG PO (13:18)
[2021-05-21] MEDS: metoclopramide 5 mg/mL SDV 2 mL 10 MG IVP (13:19)
[2021-05-21] MEDS: sodium chloride 0.9% 1,000 ML 999 ML IV (13:19)
[2021-05-21 13:33] LABS: Basophils % 0.3 %; Eosinophils # 0.2 10^3/uL (0.0-0.8); Eosinophils % 2.6 %; Hematocrit 45.6 % (37.0-47.0); Hemoglobin 14.6 g/dL (11.5-15.3); Lymphocytes # 2.1 10^3/uL (0.8-4.8); Lymphocytes % 31.3 %; Mean Corpuscular Volume 93.6 fl (81-99); Mean Platelet Volume 10.2 fL (7.4-10.4); Monocytes # 0.5 10^3/uL (0.2-0.9); Monocytes % 6.7 %; Neutrophils % 58.7 %; Nucleated Red Blood Cells % 0 %; Platelet Count 350 10^3/cmm (130-400); Red Blood Count 4.87 10^6/uL (4.1-5.3); Red Cell Distribution Width 13.6 % (12.1-15.1); White Blood Count 6.8 10^3/uL (4.0-10.0)
--- NOTE | 2021-05-21 13:44 | PC.NURSE ---
NURSE ASSUMED CARE OF PT AT 1310
[2021-05-21 13:45] LABS: Urine Appearance Clear (CLEAR); Urine Color Straw (Yellow); pH Urine 7 (5-7)
[2021-05-21 13:46] LABS: Add Urine Microscopic? YES; Bilirubin Urine Neg (Negative); Blood Urine 2+ (Negative); Glucose Urine UA Norm (Normal); Ketones Urine Negative (Negative); Leukocyte Esterase Urine Negative (Negative); Nitrate Urine Negative (Negative); Protein Urine Neg (Negative); Specific Gravity, Urine 1.005 (1.005-1.030); Urobilinogen Urine Norm (Negative)
[2021-05-21 13:51] LABS: Add Urine Culture? No; Bacteria Urine TRACE /hpf; Mucus Urine TRACE /hpf; RBC Urine 0-4 /hpf (0-2); Squamous Epithelial Cell Urine 0-4 /hpf (0-5)
[2021-05-21 13:51] LABS: INR 0.88 (0.8-1.2)
[2021-05-21 13:54] LABS: Alanine Aminotransferase 30 U/L (0-33); Albumin Level 4.8 g/dL (3.5-5.2); Alkaline Phosphatase 101 IU/L (35-105); Anion Gap 20.9 (5-19); Aspartate Amino Transferase 22 U/L (0-32); Blood Urea Nitrogen 15 mg/dL (6-20); Calcium 7.7 mg/dL (8.5-10.5); Carbon Dioxide 24 mmol/L (22-29); Chloride 102 mmol/L (98-107); Globulin 2.4 g/dL (1.3-4.6); Glomerular Filtration Rate 65.2 mL/min (90-130); Glucose 81 mg/dL (65-115); Osmolality Calculated 292 mOsm/kg (285-295); Potassium 5.9 mmol/L (3.5-5.1); Sodium 141 mmol/L (136-145); Total Bilirubin 0.5 mg/dL (0.15-1.2); Total Protein 7.2 g/dL (6.6-8.7)
[2021-05-21 13:55] LABS: Troponin T (5th) Once 6 ng/L (0-10)
[2021-05-21 16:16] VITALS: BP 140/93; PULSE 84; RESP 16; TEMP 36.5; O2SAT 99
[2021-05-21 21:19] LABS: Glucose Point of Care 78 mg/dL (70-110)
== END 2021-05-21 16:16 | disposition home or self-care (01) ==
PROVIDERS: Emergency Medicine; Emergency Provider Emergency Medicine; PCP Nurse Practitioner Family
DX: R51.9 Headache, unspecified (principal); E87.5 Hyperkalemia; Z79.82 Long term (current) use of aspirin; Z79.02 Long term (current) use of antithrombotics/antiplatelets; E78.5 Hyperlipidemia, unspecified; I12.9 Hypertensive chronic kidney disease with stage 1 through stage 4 chronic kidney disease, or unspecified chronic kidney disease; N18.30 Chronic kidney disease, stage 3 unspecified; Z86.73 Personal history of transient ischemic attack (TIA), and cerebral infarction without residual deficits
CPT/HCPCS: 36416; 70450; 80053; 81001; 82962; 84484; 85025; 85610; 85730; 93005; 96365; 96375; 99284; J1200; J2765; J3475; J7030

== ENCOUNTER → 2021-06-29 07:41 | Outpatient (BNVA) | payer MEDICARE, SELFPAY | PROVIDERS: PCP Nurse Practitioner Family; Visit Provider Nurse Practitioner | DX: F43.10 Post-traumatic stress disorder, unspecified (principal); F41.1 Generalized anxiety disorder; F60.7 Dependent personality disorder; F42.9 Obsessive-compulsive disorder, unspecified | CPT/HCPCS: 99214 ==

== ENCOUNTER → 2021-10-06 11:11 | Outpatient (BNVA) | payer MEDICARE, SELFPAY | PROVIDERS: PCP Nurse Practitioner Family; Visit Provider Nurse Practitioner | DX: F41.1 Generalized anxiety disorder (principal); F60.7 Dependent personality disorder; F42.9 Obsessive-compulsive disorder, unspecified; F43.10 Post-traumatic stress disorder, unspecified | CPT/HCPCS: 99214 ==

== ENCOUNTER 2022-07-05 15:26 | Outpatient (CLI) | payer MEDICARE, SELFPAY ==
--- NOTE | 2022-07-05 15:35 | MM_ITS ---
WS: [email or web address] BILATERAL 3D TOMOSYNTHESIS DIGITAL SCREENING MAMMOGRAPHY WITH CAD CLINICAL INFORMATION: SCREENING HISTORY: Screening mammogram. No current complaints. COMPARISON: April 16, 2021 TECHNIQUE: Bilateral CC and MLO views. FINDINGS: Scattered fibroglandular densities bilaterally. No suspicious focal mass, asymmetry, calcifications, or architectural distortion. No evidence of malignancy. Lucent centered calcification RIGHT breast. L marina-term stability of small ovoid asymmetries outer LEFT breast and subareolar LEFT breast. MM/[place] [id number] IMPRESSION: BI-RADS: 2-Benign FOLLOW UP: 1 Year Follow-up Recommend return to annual screening mammography.
== END 2022-07-05 15:27 | disposition home or self-care (01) ==
LOC: RAD 15:27
PROVIDERS: PCP Nurse Practitioner Family; Visit Provider Nurse Practitioner Family
DX: Z12.31 Encounter for screening mammogram for malignant neoplasm of breast (principal)
CPT/HCPCS: 77063; 77067

== ENCOUNTER 2022-08-04 12:53 | Outpatient (CLI) | payer MEDICARE, SELFPAY ==
--- NOTE | 2022-08-04 13:08 | XR_ITS ---
WS: [id number] Thoracic spine, 3 views, 08/04/2022 Clinical Data: THORACIC BACK PAIN Comparison: Thoracic spine, 01/17/2018. Findings: No compression fractures are seen. The disc heights are normal. The paravertebral regions are normal. There is a pin of the right clavicle. There are clips in the ri ght upper quadrant from a cholecystectomy. XR/XR thoracic spine 3V* [id number] Impression: Negative thoracic spine.
== END 2022-08-04 12:54 | disposition home or self-care (01) ==
PROVIDERS: PCP Nurse Practitioner Family; Visit Provider Nurse Practitioner Family
DX: M54.6 Pain in thoracic spine (principal)
CPT/HCPCS: 72072

== ENCOUNTER 2022-08-11 10:17 | Outpatient (CLI) | payer MEDICARE, SELFPAY ==
--- NOTE | 2022-08-11 10:29 | XR_ITS ---
WS: [email or web address] Exam: XR cervical spine 3V* [id number] Date/Time of Exam: 08/11/2022 10:32 AM Reason For Exam: CERVICALGIA Comparison 08/09/2011. No fracture or dislocation. There is straightening. Degenerative disc change and spondylosis at C5-6. Posterior elements appear normal. Normal paraspinal soft tissue structures. The odontoid is intact. XR/XR cervical spine 3V* [id number] IMPRESSION: 1. Moderate degenerative disc change and spondylosis at C5-6. Straightening. 2. No fracture or malalignment.
== END 2022-08-11 10:18 | disposition home or self-care (01) ==
LOC: RAD 10:20
PROVIDERS: PCP Nurse Practitioner Family; Visit Provider Nurse Practitioner Family
DX: M47.812 Spondylosis without myelopathy or radiculopathy, cervical region (principal)
CPT/HCPCS: 72040

== ENCOUNTER 2022-08-18 07:15 | Outpatient (CLI) | payer MEDICARE, SELFPAY ==
--- NOTE | 2022-08-18 07:25 | MR_ITS ---
WS: [id number] MRI CERVICAL SPINE NONCONTRAST AND CONTRAST TECHNIQUE: Sagittal T1, T2 and STIR imaging. Axial T2, gradient, and fiesta imaging. Post gadolinium imaging was obtained. CLINICAL INFORMATION: Chronic cervicalgia COMPARISON: MRI [address] 2010 FINDINGS: Straightening of the normal cervical lordosis. Mild disc bulging in the mid cervical spine at C4-C5 C 5-C6 and C6-C7 with slight effacement of the ventral thecal sac. Disc space narrowing worse at C5-C6. Disc space narrowing has progressed since 2007. C2-C3: Normal. C3-C4: No significant disc bulging. Mild facet arthropathy. Mild LEFT foraminal narrowing. RIGHT fora men is patent. C4-C5: Mild disc osteophyte complex with endplate ridging. Spinal canal is patent. Mild to moderate L EFT bony foraminal narrowing. Mild facet arthropathy. C5-C6: Disc osteophyte complex with endplate ridging. Moderate bilateral bony foraminal narrowing RIG HT greater than LEFT. Mild facet arthropathy. Spinal canal is patent. C6-C7: LEFT eccentric disc bulging with slight narrowing of the LEFT subarticular recess. Moderate LE FT foraminal narrowing. Mild RIGHT foraminal narrowing. Spinal canal is patent. C7-T1: No significant disc bulging. Spinal canal and foramen are patent. No abnormal gadolinium enhancement. MR/MR cervical spine wo/w [id number] IMPRESSION: 1. Straightening of the normal cervical lordosis. Mild disc bulging C4-C6 with disc space narrowing worse at C5-C6 progressed since 2007. 2. Moderate bilateral bony foraminal narrowing C5-C6. 3. LEFT subarticular and proximal foraminal disc bulging C6-C7 with moderate L EFT foraminal narrowing. Impingement on the exiting LEFT C7 nerve root. Recomme nd correlation LEFT C7 nerve root symptoms. 4. Mild to moderate LEFT C4-C5 bony foraminal narrowing. 5. Mild to moderate facet arthropathy C4-C5 C5-C6.
[2022-08-18] MEDS: gadobenate dimeglumine 20 mL vial IV (08:05)
== END 2022-08-18 07:16 | disposition home or self-care (01) ==
PROVIDERS: PCP Nurse Practitioner Family; Visit Provider Nurse Practitioner Family
DX: M50.323 Other cervical disc degeneration at C6-C7 level (principal); M48.02 Spinal stenosis, cervical region; M54.12 Radiculopathy, cervical region
CPT/HCPCS: 72156; A9577

== ENCOUNTER 2022-09-16 08:25 | Outpatient (CLI) | payer MEDICARE, SELFPAY ==
--- NOTE | 2022-09-16 08:35 | MR_ITS ---
WS: [id number] MRI THORACIC SPINE noncontrast. HISTORY: THORACIC BACK PAIN COMPARISON: None available. TECHNIQUE: Multiplanar sequences are performed in sagittal and axial planes. Normal posterior thoracic alignment. Disc spaces and vertebral body heights are maintained. Normal si gnal in the thoracic cord. No syrinx. No enlargement or atrophy. No marrow edema. T1-2: Normal. T2-3: Normal. T3-4: Normal. T4-5: Normal. T5-6: Normal. T6-7: Normal. T7-8: Mild facet arthritis. No significant stenosis. T8-9: Mild bilateral facet arthritis. Mild foraminal narrowing. No high-grade stenosis. T9-10: Mild bilateral foraminal narrowing due to facet disease. T10-11: Normal. T11-12: Normal. MR/MR thoracic spin wo con* [id number] IMPRESSION: 1. No significant disc protrusions or stenosis within the thoracic spine. 2. Mild facet joint arthritis as above.
== END 2022-09-16 08:26 | disposition home or self-care (01) ==
LOC: RAD 08:31
PROVIDERS: PCP Nurse Practitioner Family; Referring Provider Surgery; Visit Provider Nurse Practitioner Family
DX: M54.6 Pain in thoracic spine (principal)
CPT/HCPCS: 72146

== ENCOUNTER 2023-04-11 15:06 | Outpatient (CLI) | payer MEDICARE, SELFPAY ==
--- NOTE | 2023-04-11 15:15 | XR_ITS ---
WS: [email or web address] Exam: XR lumbar spine 2-3V* [id number] Date/Time of Exam: 04/11/2023 3:22 PM Reason For Exam: UNSPECIFIED FRACTURE OF THIRD LUMBAR VERTEBRA Comparison 01/17/2018. There is depression of the superior endplates of L3 and L4 that have occurred since the prior study. Age is indeterminate. The remaining lumbar vertebra are intact. Mild spondylosis. Disc spaces relativ mustapha well-maintained. 3 mm calcification superimposes the RIGHT kidney and apparently represents known renal stone. Signs of prior cholecystectomy. Mild facet DJD and osteopenia. IMPRESSION: 1. Depression of the superior endplates of L3 and L4 that have occurred since the prior study. These may represent insufficiency compression fractures which are age indeterminate. No other sign of fract ure. 2. Degenerative changes and osteopenia. Right-sided renal stone. Recommendations: MRI of the lumbar spine might be considered for more definitive evaluation.
== END 2023-04-11 15:07 | disposition home or self-care (01) ==
PROVIDERS: PCP Nurse Practitioner Family; Visit Provider Family Medicine
DX: S32.039D Unspecified fracture of third lumbar vertebra, subsequent encounter for fracture with routine healing (principal); X58.XXXD Exposure to other specified factors, subsequent encounter; M47.816 Spondylosis without myelopathy or radiculopathy, lumbar region; M85.88 Other specified disorders of bone density and structure, other site
CPT/HCPCS: 72100

== ENCOUNTER 2023-04-13 15:39 | Observation (INO) | payer MEDICARE, SELFPAY ==
[2023-04-13] VITALS (10 sets, daily range): BP systolic 81–110; BP diastolic 56–68; PULSE 59–85; RESP 16–22; TEMP 36.4–36.5; O2SAT 95–100; BMI 22.4
--- NOTE | 2023-04-13 15:42 | ECG_ITS ---
[facility] Test Date: 2023-04-13 Pat Name: Gabi Campbell Department: Room: Gender: Female Spa Technician: : 1965 Requested By: Jaime Lee Order Number: [id number] Dustin MD: Delia Bah M.D. Measurements Intervals [place] Rate: 84 P: 64 CT: 145 QRS: 93 QRSD: 87 T: 57 QT: 337 QTc: 399 Interpretive Statements SINUS RHYTHM BORDERLINE RIGHT AXIS DEVIATION [QRS AXIS > 90] Compared to ECG 05/21/2021 13:11:26 Sinus bradycardia no longer present Electronically Signed On 04-13-2023 16:39:10 CDT by Delia Bah M.D. [id number]
--- NOTE | 2023-04-13 15:56 | XR_ITS ---
WS: [email or web address] Exam: XR chest 1V portable [id number] Date/Time of Exam: 04/13/2023 3:56 PM Reason For Exam: chest discomfort Comparison 05/08/2021. The lungs are fully expanded and clear. Normal cardiomediastinal silhouette. No pleural effusions. He aled fracture of the RIGHT clavicle with pin fixation. Remaining bony structures appear normal. IMPRESSION: 1. Negative chest. No change.
[2023-04-13 16:26] LABS: Basophils % 0.5 %; Eosinophils # 0.1 10^3/uL (0.0-0.8); Eosinophils % 1.4 %; Hematocrit 42.3 % (36-47); Lymphocytes % 45.8 %; Mean Corpuscular HGB Conc 32.9 g/dL (30-55); Mean Corpuscular Hemoglobin 30.3 pg (27-33); Mean Corpuscular Volume 92.2 fl (85-98); Monocytes # 0.3 10^3/uL (0.2-0.9); Monocytes % 6.2 %; Neutrophils # 2.01 10^3/uL (1.8-7.7); Neutrophils % 45.9 %; Nucleated Red Blood Cells % 0 %; Platelet Count 287 10^3/cmm (157-399); Red Blood Count 4.59 10^6/uL (3.85-5.65); Red Cell Distribution Width 12.5 % (12.1-15.1); White Blood Count 4.37 10^3/uL (3.29-11.43)
--- NOTE | 2023-04-13 16:37 | ED_ITS ---
HPI - Arrhythmia/Palpitations General: Chief Complaint: Shortness of Breath/Dyspnea Stated Complaint: sob, racing heart Time Seen by Provider: 04/13/23 15:56 History of Present Illness: 57-year-old female presents the emergency department for sense of palpitations, dyspnea, vague chest discomfort. She reports it started when she was actually walking into the hospital. 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 she explains she is never felt anything quite like this before. No history of cardiac disease, lung disease, arrhythmia. She reports she has not been sick recently. However, she does have chronic migraines and she ended up taking 2 doses of sumatriptan 6 mg today for a particularly bad headache. She ended up coming down to the emergency department for evaluation because of the symptoms. On arrival her heart rate is in the 80s. Her blood pressures in the 90s but she states this is pretty normal for her. She is not hypoxic. Associated symptoms: Deny nausea, syncope or vomiting Review of Systems General: Reports: 10 or more systems reviewed and unremarkable except in HPI and below Const: Denies: fever(s), chills or body aches Eyes: Denies: change in vision Card: Denies: edema or syncope Resp: Denies: productive cough GI: Denies: abdominal pain, nausea, vomiting or diarrhea : Denies: flank pain, dysuria or urinary frequency Musc: Denies: neck pain, back pain, extremity pain or extremity swelling Skin/Breast: Denies: rash or erythema Neuro: Denies: headache(s), numbness in extremities, weakness in extremities, lack of coordination or difficulty walking [facility] ED PFSH: Medical History (Updated 04/13/23 @ 20:42 by Murphy Puga MD) Dependent personality disorder Gastric polyp Generalized anxiety disorder Gout Hyperlipidemia Hypothyroidism In past. Migraine Obsessive-compulsive disorder, unspecified PTSD (post-traumatic stress disorder) PTSD (post-traumatic stress disorder) Stage 3 chronic kidney disease Surgical History History of axillary surgery (~03/2016) Exploratory left armpit surgery. Performed by Dr. Chen at [facility] [place] in [place], [place]. History of carpal tunnel surgery Both, Left wrist twice, right wrist once History of open reduction and internal fixation (ORIF) procedure (10/11/10) Right clavicle. Performed by Dr. Monroe at [facility] [place] in [place], [place]. History of prolapse of bladder (~2008) bladder mesh History of removal of retained hardware (04/26/11) With open reduction and internal fixation of Rt clavicle. Performed by Dr. Hossein Ortiz at [facility] [place] in [place], [place]. History of removal of retained hardware (12/12/12) Right shoulder. Performed by Dr. Hossein Ortiz at [facility] [place] in [place], [place]. History of suburethral sling procedure (08/29/07) Anterior vaginal repair & transobturator suburethral sling; Dx: Cystocele, BRANDEN. Performed by Dr. Rosenberg at [facility] [place] in [place], [place] History of tubal ligation (~1996) Hx of bilateral breast reduction surgery (~2002) Hx of colonoscopy (~2020) Hx of ectopic (~1986) Laparoscopic treatment of ectopic Hx of esophagogastroduodenoscopy (~2020) S/P laparoscopic assisted vaginal hysterectomy (LAVH) (01/21/08) With anterior repair. Performed by Dr. Bueno at [facility] in [place], [place] S/P laparoscopic cholecystectomy (~1996) Performed at [facility] [place] in [place] Family History Brother Hypertension Heart disease Colon cancer Father Hypertension Grandmother Diabetes Maternal Heart disease Maternal Unknown No problems noted. Mother Cancer leukemia, hodgkins Grandfather Cancer lung cancer, maternal Social History Smoking and tobacco/nicotine status: never used tobacco/nicotine Alcohol intake: current Alcohol intake frequency: holidays/special occasions only Substance/Drug Use: never Physical Exam Const: COMMON NORMALS: no limitations, alert and well nourished EXAM LIMITATIONS: no altered mental status HENMT: COMMON NORMALS: normocephalic, atraumatic and external ears normal HEAD & SCALP: normocephalic and atraumatic EXTERNAL EAR: Yes external ears normal MOUTH: no muffled voice Eye: COMMON NORMALS: EOMs intact bilaterally, conjunctivae normal and no scleral icterus CONJUNCTIVA: Yes conjunctivae normal Neck/C-Spine: COMMON NORMALS: no JVD GENERAL: Yes normal visual inspection and Yes trachea midline Resp: COMMON NORMALS: normal respiratory effort, No use of accessory muscles and clear to auscultation bilaterally AUSCULTATION: clear to auscultation bilaterally Cardio: COMMON NORMALS: no JVD and regular rate; negative for regular rhythm ( Occasional irregularity followed by a regular rhythm. Question ectopic ) RATE: regular rate RHYTHM: abnormal rhythm ( Occasional irregularity followed by a regular rhythm. Question ectopic ) GI: COMMON NORMALS: Soft to palpation and non-tender PALPATION: Yes Soft to palpation and No Guarding due to palpation present (GI) Extremity: COMMON NORMALS: normal to inspection Neuro: COMMON NORMALS: moves all extremities, no focal motor deficits and no sensory deficits noted SENSORIUM/ORIENTATION: Yes alert SPEECH: speech normal Psych: COMMON NORMALS: mental status grossly normal, Normal thought process present, cooperative, normal affect and speech normal SPEECH: Yes normal speech THOUGHT PROCESS: Normal thought process present Skin: COMMON NORMALS: no rashes or lesions noted, turgor normal and no jaundice GENERAL SKIN EXAM: no rashes or lesions noted and turgor normal Course Vital Signs: Vital signs: Vital Signs Temperature 97.7 F 04/13/23 15:47 Pulse Rate 74 04/13/23 19:31 Respiratory Rate 17 04/13/23 19:31 Blood Pressure 110/68 04/13/23 19:31 Pulse Oximetry 100 04/13/23 19:31 Oxygen Delivery Me thod Room Air 04/13/23 16:32 MDM - Arrhythmia/Palpitations Medical Decision Making EKG obtained at 1540 6 AM shows a sinus rhythm, rate 84, normal axis, normal intervals, no concerning ST segment elevations or depressions, no ectopy, no hypertrophic obstructive cardiomyopathy, no signs of atrial enlargement. On examination, there was a rare irregular beat. I am wondering whether she is having episodes of PACs or PVCs. examination is otherwise unremarkable. She does not have any significant risk factors for cardiopulmonary disease. She denies drinking excessive caffeine or using any stimulants. She does have anxiety, PTSD, OCD but states that she did not feel anxious when this started. Update Troponin 14 at baseline. Delta troponin +20. This is a clinically relevant change. The patient was ambulated and had some chest pressure and shortness of breath. We will assume this is unstable angina as she is having features of typical cardiac chest pain. D-dimer was negative. I consulted with Dr. Eli, cruise director, who will consult on the patient in the morning and is planning an angiogram. Lab Data 04/13/23 16:15 04/13/23 16:15 Laboratory Results WBC 4.37 10^3/uL (3.29-11.43) 04/13/23 16:15 RBC 4.59 10^6/uL (3.85-5.65) 04/13/23 16:15 Hgb 13.90 g/dL (11.27-16.99) 04/13/23 16:15 Hct 42.3 % (36-47) 04/13/23 16:15 MCV 92.2 fl (85-98) 04/13/23 16:15 MCH 30.3 pg (27-33) 04/13/23 16:15 MCHC 32.9 g/dL (30-55) 04/13/23 16:15 RDW 12.5 % (12.1-15.1) 04/13/23 16:15 Plt Count 287 10^3/cmm (157-399) 04/13/23 16:15 MPV 10.0 fL (7.4-10.4) 04/13/23 16:15 Neut % (Auto) 45.9 % 04/13/23 16:15 Lymph % (Auto) 45.8 % 04/13/23 16:15 [place] % (Auto) 6.2 % 04/13/23 16:15 Eos % (Auto) 1.4 % 04/13/23 16:15 Baso % (Auto) 0.5 % 04/13/23 16:15 Neut # (Auto) 2.01 10^3/uL (1.8-7.7) 04/13/23 16:15 Lymph # (Auto) 2.0 10^3/uL (0.8-4.8) 04/13/23 16:15 [place] # (Auto) 0.3 10^3/uL (0.2-0.9) 04/13/23 16:15 Eos # (Auto) 0.1 10^3/uL (0.0-0.8) 04/13/23 16:15 Baso # (Auto) 0.0 10^3/uL (0.0-0.1) 04/13/23 16:15 Nucleated RBC % (auto) 0 % 04/13/23 16:15 Nucleated RBCs # 0.0 /100WBC 04/13/23 16:15 D-Dimer 0.59 ug/mLFEU (0-0.59) 04/13/23 16:15 Sodium 139 mmol/L (136-145) 04/13/23 16:15 Potassium 4.2 mmol/L (3.5-5.1) 04/13/23 16:15 Chloride 103 mmol/L (98-107) 04/13/23 16:15 Carbon Dioxide 24 mmol/L (22-29) 04/13/23 16:15 Anion Gap 16.2 (5-19) 04/13/23 16:15 BUN 22 mg/dL (6-20) H 04/13/23 16:15 Creatinine 1.1 mg/dL (0.5-0.9) H 04/13/23 16:15 GFR Calculation 51.4 mL/min (90-130) L 04/13/23 16:15 Glucose 55 mg/dL (65-115) L 04/13/23 16:15 Calculated Osmolality 289 mOsm/kg (285-295) 04/13/23 16:15 Calcium 10.2 mg/dL (8.5-10.5) 04/13/23 16:15 Total Bilirubin 0.4 mg/dL (0.15-1.2) 04/13/23 16:15 AST 19 U/L (0-32) 04/13/23 16:15 ALT 13 U/L (0-33) 04/13/23 16:15 Alkaline Phosphatase 85 U/L (35-105) 04/13/23 16:15 Troponin T Baseline 14 ng/L (0-10) H 04/13/23 16:15 Troponin T 120 Minute 33.46 ng/L (0-10) H 04/13/23 18:21 Delta Troponin T 19.46 ABS# (0-10) H* 04/13/23 18:21 NT-Pro-B Natriuret Pep 36 pg/mL (0-125) 04/13/23 16:15 Total Protein 7.4 g/dL (6.6-8.7) 04/13/23 16:15 Albumin 4.9 g/dL (3.5-5.2) 04/13/23 16:15 Globulin 2.5 g/dL (1.3-4.6) 04/13/23 16:15 XR interpretation done by ED provider, pending radiology final review ED provider radiology interpretation(s): chest x-ray 1 view, my interpretation: Normal cardiomediastinal silhouette, no effusions, no infiltrates, no pneumothorax, no effusions. Discharge Plan Discharge Patient Disposition: Placed in Observation Clinical Impression: Angina pectoris, unstable Coding Level of Care Code ED [employer] Checker for Carissa Rocha
[2023-04-13 17:02] LABS: Troponin(5th) Baseline 14 ng/L (0-10)
[2023-04-13 17:12] LABS: Alanine Aminotransferase 13 U/L (0-33); Albumin Level 4.9 g/dL (3.5-5.2); Alkaline Phosphatase 85 U/L (35-105); Anion Gap 16.2 (5-19); Aspartate Amino Transferase 19 U/L (0-32); Blood Urea Nitrogen 22 mg/dL (6-20); Calcium 10.2 mg/dL (8.5-10.5); Carbon Dioxide 24 mmol/L (22-29); Chloride 103 mmol/L (98-107); Globulin 2.5 g/dL (1.3-4.6); Glomerular Filtration Rate 51.4 mL/min (90-130); Glucose 55 mg/dL (65-115); NT Pro B Type Natriuretic Pept 36 pg/mL (0-125); Osmolality Calculated 289 mOsm/kg (285-295); Potassium 4.2 mmol/L (3.5-5.1); Sodium 139 mmol/L (136-145); Total Bilirubin 0.4 mg/dL (0.15-1.2); Total Protein 7.4 g/dL (6.6-8.7)
--- NOTE | 2023-04-13 17:56 | ECG_ITS ---
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 Measurements Intervals [place] Rate: 74 P: 61 RI: 149 QRS: -25 QRSD: 79 T: 59 QT: 364 QTc: 404 Interpretive Statements SINUS RHYTHM INDETERMINATE AXIS LOW QRS VOLTAGE IN PRECORDIAL LEADS [QRS DEFLECTION < 1.0 mV IN CHEST LEADS] Compared to ECG 04/13/2023 15:46:22 Indeterminate axis now present Low QRS voltage now present Electronically Signed On 04-13-2023 20:00:47 CDT by Delia Bah M.D. [id number]
[2023-04-13 19:11] LABS: Troponin 5 2HR 33.46 ng/L (0-10)
[2023-04-13 19:14] LABS: Troponin 5 2HR Delta 19.46 ABS# (0-10)
[2023-04-13] MEDS: aspirin 81 mg Chew Tablet 324 MG PO (19:33)
[2023-04-13 19:57] LABS: D Dimer 0.59 ug/mLFEU (0-0.59)
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
--- NOTE | 2023-04-13 21:56 | USCV_ITS ---
Lavern Campbellica Age: 57 Gender: F : 1965 Exam Date: 04/13/2023 22:23 Ordering Phys: Vitor Cutler MD Technologist: JOAQUÍN Exam Location: [facility] Indication: STALEY, SOB. No history of cardiac intervention per patient. BP: 110 / 68 HR: 66 Rhythm: Sinus Technical Quality: Adequate MEASUREMENTS (Male / Female) Normal Values 2D ECHO LV Diastolic Diameter PLAX 2.6 cm 4.2 - 5.9 / 3.9 - 5.3 cm LV Systolic Diameter PLAX 1.8 cm IVS Diastolic Thickness 1.5 cm 0.6 - 1.0 / 0.6 - 0.9 cm IVS Systolic Thickness 1.8 cm LVPW Diastolic Thickness 1.3 cm 0.6 - 1.0 / 0.6 - 0.9 cm LVPW Systolic Thickness 1.6 cm LVOT Diameter 1.7 cm LV Ejection Fraction 2D Teich 63.3 % LV Ejection Fraction MOD 2C 73.4 % LV Ejection Fraction 2C AL 74.3 % LA Diameter 2.8 cm LA Width 2.2 cm LA Height 4.2 cm RA Width 2.8 cm RA Height 3.5 cm Aorta at Sinotubular Diameter 3.0 cm IVC Diameter 1.6 cm M-MODE Aortic Annulus Diameter 2.8 cm LA Ao Ratio MM 1.0 MV E Point Septal Separation 0.0 cm DOPPLER AV Peak Velocity 96.0 cm/s LVOT Peak Velocity 90.0 cm/s AV Area Cont Eq vti 1.7 cm squared AV Area Cont Eq pk 2.0 cm squared MV Area PHT 3.0 cm squared Mitral E to A Ratio 1.2 MV E' Velocity 51.0 cm/s Mitral E to MV E' Ratio 8.3 Mitral E to LV E' Lateral Ratio 7.8 Mitral E to LV E' Septal Ratio 8.8 TR Peak Velocity 183.0 cm/s TR Peak Gradient 13.4 mmHg TV Peak E Velocity 42.0 cm/s Right Atrial Pressure 5.0 mmHg Pulmonary Artery Systolic Pressu 18.4 mmHg PV Peak Velocity 69.0 cm/s RV Acceleration Time 0.1 s RV Ejection Time 0.3 s RV AcT/ET 0.2 FINDINGS Left Ventricle Normal left ventricular size, systolic function and wall thickness, with no regional wall motion abnormalities. Left ventricular ejection fraction is estimated at 70 %. Normal diastolic function. Right Ventricle Normal right ventricular size and systolic function. Right Atrium Normal right atrial size. Left Atrium Normal left atrial size. Mitral Valve Structurally normal mitral valve. No mitral valve stenosis. Trace mitral valve regurgitation. Aortic Valve Structurally normal trileaflet aortic valve. No aortic valve stenosis. No aortic valve regurgitation. Tricuspid Valve Structurally normal tricuspid valve. No tricuspid valve stenosis. Trace tricuspid valve regurgitation. Pulmonic Valve Structurally normal pulmonic valve. No pulmonary valve stenosis. No pulmonary valve regurgitation. Pericardium No pericardial effusion. Aorta Normal size aortic root and proximal ascending aorta. IVC Normal IVC dimension with >50% respiratory change of the inferior vena cava. CONCLUSIONS 1. Normal left ventricular size, systolic function and wall thickness, with no regional wall motion abnormalities. Left ventricular ejection fraction is estimated at 70 %. Normal diastolic function. 2. No significant valvular abnormality. 3. No change when compared to study dated 05/17/2021. Delia Bah MD (Electronically Signed) Final Date: 14 April 2023 12:36 S
--- NOTE | 2023-04-13 21:56 | ECG_ITS ---
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 Measurements Intervals [place] Rate: 68 P: 55 FL: 156 QRS: 72 QRSD: 84 T: 41 QT: 404 QTc: 430 Interpretive Statements SINUS RHYTHM Compared to ECG 04/13/2023 17:57:06 Indeterminate axis no longer present Electronically Signed On 04-14-2023 7:10:37 CDT by Delia Bah M.D. [id number]
[2023-04-13 22:28] LABS: Estmated Average Glucose 91; Hemoglobin A1C 4.8 % (4.0-6.0)
[2023-04-13 22:34] LABS: Troponin 5 6HR 47.92 ng/L (0-10)
[2023-04-13 22:46] LABS: Troponin 5 6HR Delta 33.92 ng/L (0-12)
[2023-04-13] MEDS: lactated ringers 1,000 ML 75 ML IV (23:18)
[2023-04-13] MEDS: enoxaparin 60 mg/0.6 mL Syringe SUBCUT (23:18)
[2023-04-13] MEDS: pantoprazole DR 40 mg Tablet PO (23:19)
[2023-04-13] MEDS: CLONazepam 0.5 mg Tablet PO (23:19)
[2023-04-13] MEDS: acetaminophen 325 mg Tablet 650 MG PO (23:19)
[2023-04-14] VITALS (54 sets, daily range): BP systolic 92–129; BP diastolic 53–83; PULSE 59–88; RESP 14–34; TEMP 36.4–36.9; O2SAT 97–100
[2023-04-14 00:06] LABS: Glucose Point of Care 101 mg/dL (70-110)
[2023-04-14] MEDS: lactated ringers 500 ML 999 ML IV ×2 (01:30→02:54)
--- NOTE | 2023-04-14 01:37 | PC.NURSE ---
Patient BP 86/52 map 63, Dr smith notified, lactated ringer 500 ml bolus started @ 01:[address] aldana.
[2023-04-14 05:23] LABS: Basophils % 0.3 %; Eosinophils # 0.1 10^3/uL (0.0-0.8); Hematocrit 36.5 % (36-47); Mean Corpuscular HGB Conc 32.3 g/dL (30-55); Mean Corpuscular Volume 95.8 fl (85-98); Mean Platelet Volume 10.4 fL (7.4-10.4); Monocytes # 0.3 10^3/uL (0.2-0.9); Monocytes % 8.6 %; Neutrophils # 1.15 10^3/uL (1.8-7.7); Neutrophils % 31.8 %; Nucleated Red Blood Cells % 0 %; Platelet Count 234 10^3/cmm (157-399); Red Blood Count 3.81 10^6/uL (3.85-5.65); Red Cell Distribution Width 12.5 % (12.1-15.1); White Blood Count 3.61 10^3/uL (3.29-11.43)
[2023-04-14 05:47] LABS: Chol HDL Ratio 3.06 mg/dL (0.0-4.40); Cholesterol 156 mg/dL (0-200); HDL Cholesterol 51 mg/dL (60-100); LDL Cholesterol Calculated 90 mg/dL (50-129); LDL HDL Ratio 1.76 RATIO (0.00-3.22); Triglycerides 77 mg/dL (0-150)
[2023-04-14 05:57] LABS: Alanine Aminotransferase 9 U/L (0-33); Albumin Level 3.6 g/dL (3.5-5.2); Alkaline Phosphatase 66 U/L (35-105); Anion Gap 8.9 (5-19); Aspartate Amino Transferase 17 U/L (0-32); Blood Urea Nitrogen 21 mg/dL (6-20); Calcium 9.1 mg/dL (8.5-10.5); Carbon Dioxide 27 mmol/L (22-29); Chloride 106 mmol/L (98-107); Globulin 2.1 g/dL (1.3-4.6); Glomerular Filtration Rate 64.8 mL/min (90-130); Glucose 96 mg/dL (65-115); Osmolality Calculated 289 mOsm/kg (285-295); Potassium 3.9 mmol/L (3.5-5.1); Sodium 138 mmol/L (136-145); Total Bilirubin 0.3 mg/dL (0.15-1.2); Total Protein 5.7 g/dL (6.6-8.7)
[2023-04-14 07:01] LABS: Glucose Point of Care 108 mg/dL (70-110)
--- NOTE | 2023-04-14 07:50 | XACV_ITS ---
Exam Room: [facility] [place] Ht: 160 cm Wt: 62 kg BSA: 1.67 m2 Gender: Female : 1965 Any Known Allergies: No known allergies Exam Priority: Routine Procedure(s): Procedure Description: Diagnostic procedure Procedure Description: Left Heart Catheterization Procedure Description: Left ventriculography Procedure Description: Coronary Angiography Diagnostic Cath Status: Urgent Diagnostic Findings * No significant disease noted in the Left Main, Left Anterior Descending, Right, or Circumflex coronary arteries. * Mid LAD has myocardial bridging. * Coronary angiography shows right dominance. Conclusions 1. No significant disease noted in the Left Main, Left Anterior Descending, Right, or Circumflex coronary arteries. 2. Normal left ventricular systolic function. Ejection fraction of 60%. Recommendations * Aggressive risk factor modification. * Outpatient cardiology follow up in 1 month. Interventional RX Recommendation: medical therapy and/or counseling Diagnostic RX Recommendation: medical therapy and/or counseling Anticoagulation: Heparin Ventriculography Ejection Fraction: 60.0 % Pressures Phase:Rest AO : 70 / 54 ( 63 ) @ 10:56:00 AM 71 / 53 ( 63 ) @ 10:57:00 AM 100 / 57 ( 75 ) @ 11:03:00 AM 98 / 58 ( 75 ) @ 11:03:00 AM LV : 99 / 4 / 15 @ 11:02:00 AM 105 / / 19 @ 11:02:00 AM 106 / @ 11:03:00 AM Valves Phase:DefaultPhase AV : 8.0 @ 10:09:48 AM AV Mean Gradient: 9.0 @ 10:09:48 AM 9.0 @ 10:09:48 AM Clinical Evaluation EBL: 5mL-10mL Procedural Details Pre-Procedure Time Out. Identified patient by full name and date of as verbalized by the patient/guarantor. Does the consent match the physician's order: Yes. Accurate & Complete Informed Consent: Yes. Inpatient/Outpatient History & Physical on Chart: Yes. If H&P is completed, is and addenduem needed: No; If yes, is the addendum complete: N/A. Visualize and Verify Site with Patient/Guarantor: N/A. Relevant Radiology Images available: Yes. Pre-op teaching completed and patient verbalized understanding. The risks, benefits, and alternatives of sedation and/or procedure were discussed by physician. The patient agrees to continue. Procedure started. Current Diagnosis : NSTEMI. Physician arrived. [facility] Clinical Fraility Score: 3: Managing Well. Bookmobile Clerk Indications: ACS > 24 hours. Chest Pain Symptom Assessment: Atypical Angina. Correct patient, site and procedure confirmed by cath team. Current diagnosis: NSTEMI. PERRLA. Strong, equal hand posting clerk bilaterally. Lungs clear x 5 lobes. IV Site on Arrival: 18 gauge in the right anticubital. IV Fluids: 0.9% NaCl at KVO. 0 mL infused prior to pathology laboratory aide. Pre Procedural Pulses: right radial was 3+. Oxygen started at 2liters/min via nasal canula. right groin was prepped with chloroprep then draped in the usual sterile fashion. right radial was prepped with chloroprep then draped in the usual sterile fashion. Physician notified. Physician scrubbed in. Immediate Pre-Procedure Time Out. Correct Patient: Yes; Correct Procedure: Yes; Correct Site: Yes; Correct Patient Position: Yes; Correct Supplies: Yes; Dried Flammable Prep: Yes; Blood Products Available: N/A;. Lidocaine 1% infiltrated to the right radial. Arterial access obtained. A 5 [place] TIG catheter in over wire. Multiple views taken of left coronary artery. Catheter redirected to the RCA. Multiple views taken of right coronary artery. Catheter removed over the exchange wire. EDP Sample taken: LV 99/4,15; HR: 63 BPM; SpO2: 98%. LV gram performed in [place] @ 10 mL/second for a total of 30 mL. EDP Sample taken: LV 105/2,19; HR: 64 BPM; SpO2: 99%. Pullback taken: LV 106/1,19; AO 100/57(75); Mean: 9mmHg, Peak to Peak: 8mmHg, SEP: 15sec/min; HR: 62 BPM; SpO2: 99%. Catheter removed over the exchange wire. A TR Band was successful obtaining hemostatsis at the Right Radial artery insertion site. Vital chart was stopped. Post Procedure: Pulses reassessed and unchanged. PERRLA. Strong, equal hand posting clerk bilaterally. No VTE prophylaxis required. Medication's Wasted: Lidocaine 1% = 2 mL. Medication's Wasted: Nitro = 49.8 mcg. Medication's Wasted: Heparin = 1000 units. Medication's Wasted: Other = Fentanyl 50 mcg. Total IV fluids: 250 mL. Post-op diagnosis: Normal Coronaries. Complications: None. Estimated blood loss: 5mL-10mL. Responsiveness - Normal response to verbal stimuli; alert and oriented, PERRLA. Airway - Unaffected, no intervention required; spontaneous ventilation. Circulation: W/N/L, pulses unchanged. Nausea/Vomiting: No. Procedure completed. Patient transferred by wheelchair to 1st floor. Access Site Site: Right Radial artery Sheath Size: 6 Fr Hemostasis Method: TR Band Hemostasis Success: Successful Procedure Medications Start: 9:42 AM Stop: 9:42 AM Medication: Versed Amount: 1 mg Route: I.V. Start: 9:42 AM Stop: 9:42 AM Medication: Fentanyl Amount: 50 mcg Route: I.V. Start: 9:52 AM Stop: 9:52 AM Medication: Nitrogylcerin Amount: 200 mcg Route: I.A. Start: 9:53 AM Stop: 9:53 AM Medication: Versed Amount: 1 mg Route: I.V. Start: 9:54 AM Stop: 9:54 AM Medication: Heparin Amount: 5000 units Route: I.V. Start: 9:56 AM Stop: 9:56 AM Medication: 0.9% Saline Amount: 250 ml Route: I.V. bolus I, the attending physician, have reviewed and verified all procedure medications. Yes, all medications given per verbal order History/Risk Factors Hypertension: No Dyslipidemia: No Peripheral Arterial Disease (PAD): No Myocardial Infarction (UT): No Obesity: No Renal Disease: No Tobacco Use: Never Prior Interventions PCI: No CABG: No Valve Surgery: No Report Signatures Finalized by Chang Eli MD on 04/15/2023 12:31 PM
--- NOTE | 2023-04-14 08:43 | PC.CHAP ---
Pastoral Care Encounter/Spiritual Assessment Type of Contact [x] Declined adult psychiatrist visit [] Patient/Family/Request visit [] Outpatient visit [] Follow-up visit [] Physician referral [] Code/Alert [] Routine visit [] Staff referral [] Actively dying [] Patient sleeping [] Family support [] [] Out of room [] Palliative care [] [] Receiving care in room [] Pre-surgical visit [] Trauma [] Long length of stay [] ICU visit [] Other: Relational/Emotional Strength [x] Patient feels connected with others/family/visitors/staff [] Distress [] Loneliness/isolation [] Abandonment Spirituality of Patient [] Person of Madelyn [] Attends Islam of their Madelyn [] Believes in Prayer [] Reads Bible or Islam materials [] There are Spiritual issues to be addressed Welding Inspector Interventions [] Prayer [] Active listening [] Non-anxious presence [] Spiritual/emotional support [] Crisis/trauma care [] Spiritual counseling [] Bereavement support [] Provided bereavement packet [] Provided Bible/devotional materials [] Provided toy/stuffed animal, coloring book to patient or family member [] Provided Communion [] Anointing/[place] [] Salvation [] Completed spiritual assessment [] Other: Impact on Illness or Injury [] Angry [] Fearful [] Anxious [] Often cries [] Exhaustion [] Unable to work [] Unable to attend cheondoism [] Unable to walk/stand [] Unable to read [] Unable to drive [] Unable to eat/drink [] Unable to sleep [] Unable to be with family [] Patient intubated [] Other: Summary Time spent with patient
--- NOTE | 2023-04-14 09:18 | PM.CONSULT ---
Providers/Reason For Consult Consulting Physician/Specialty*: Chang Eli MD/ Cardiology Reason for Consult*: NSTEMI Requesting Physician: Dr Puga Attending Physician: Cecil Saucedo DO Primary Care Provider: Priyank Stafford NP History of Present Illness History of Present Illness Gabi Campbell is a 57 year old female with no prior cardiac history presented to hospital with palpitations, chest discomfort and shortness of breath. She said the episode lasted for several minutes. She had significant difficulty breathing at the time. Her troponins have trended up significantly from baseline of 14 to 47 at 6 hours. EKG did not show significant ischemic changes Patient has strong family history of CAD. Review of Systems Const: Denies: fever(s), chills, body aches or malaise ENMT: Denies: throat pain Card: Reports: palpitations, swelling of feet/ankles (Occasionally if she eats a lot of salt) and dyspnea on exertion; Denies: chest pain or edema Resp: Reports: dyspnea; Denies: productive cough, change in phlegm color or hemoptysis GI: Denies: abdominal pain, nausea, vomiting, diarrhea, constipation, hematochezia or melena : Denies: flank pain, urinary frequency or hematuria Musc: Denies: back pain, joint swelling or joint redness Skin/Breast: Denies: rash or new lesions Neuro: Denies: headache(s), numbness in extremities, weakness in extremities, dizziness, confusion or seizure-like activity Medications/Allergies Home Medications Medication Instructions Recorded Confirmed Last Taken Type allopurinol 100 mg tablet 100 mg PO QPM 10/29/19 04/13/23 04/12/23 History sumatriptan succinate 6 mg/0.5 mL See Rx Instructions .Route .COMPLEX 12/02/20 04/13/23 Unknown History subcutaneous pen injector (Imitrex STATdose Pen) fluticasone propionate 50 2 spray intranasal DAILY 05/17/21 04/13/23 04/12/23 History mcg/actuation nasal spray,suspension ropinirole 1 mg tablet 1 mg PO DAILY 05/17/21 04/13/23 04/13/23 History ropinirole 2 mg tablet 2 mg PO BID 05/17/21 04/13/23 04/12/23 History cetirizine 10 mg tablet 10 mg PO QPM 10/06/21 04/13/23 04/12/23 History ibuprofen 800 mg tablet 800 mg PO BID PRN Pain 09/01/22 04/13/23 Unknown History clonazepam 0.5 mg tablet 0.5 mg PO BID PRN Anxiety #60 tabs 12/30/22 04/13/23 Unknown Rx lamotrigine 100 mg tablet 150 mg PO BEDTIME #45 tabs 12/30/22 04/13/23 04/12/23 Rx (Lamictal) fluoxetine 40 mg capsule (Prozac) 40 mg PO QPM 04/13/23 04/13/23 04/12/23 History furosemide 40 mg tablet (Lasix) 40 mg PO QAM PRN Edema 04/13/23 04/13/23 Unknown History orphenadrine citrate 100 mg 100 mg PO BID PRN Pain 04/13/23 04/13/23 Unknown History tablet,extended release tirzepatide 12.5 mg/0.5 mL 12.5 mg SUBCUT Q7D 04/13/23 04/13/23 Unknown History subcutaneous pen injector (Susannah) trazodone 100 mg tablet 100 mg PO BEDTIME PRN Sleep 04/13/23 04/13/23 Unknown History Allergies Allergy/AdvReac Type Severity Reaction Status Date / Time No Known Allergies Allergy Verified 11/15/22 11:05 Current Medications Generic Name Dose Route Start Last Admin Trade Name Freq PRN Reason Stop Dose Admin Acetaminophen 650 mg 04/13/23 21:56 04/13/23 23:19 Acetaminophen 325 Mg Tablet PO 650 mg Q6H PRN Administration Mild/Mod Pain Or Temp >/= 101 Clonazepam 0.5 mg 04/13/23 21:56 04/13/23 23:19 Clonazepam 0.5 Mg Tablet PO 0.5 mg BID PRN Administration Anxiety Enoxaparin Sodium 60 mg 04/13/23 23:00 04/13/23 23:18 Enoxaparin 60 Mg/0.6 Ml Syringe SUBCUT 60 mg Q12H DEZ Administration Lactated Ringer's 1,000 mls @ 75 mls/hr 04/13/23 23:00 04/13/23 23:18 Lactated Ringers IV 04/14/23 10:59 75 mls/hr .[id number] DEZ Administration Pantoprazole Sodium 40 mg 04/13/23 21:56 04/13/23 23:[address] 40 Mg Tablet PO 40 mg DAILY DEZ Administration PFSH Acute PFSH: Medical History Dependent personality disorder Gastric polyp Generalized anxiety disorder Gout Hyperlipidemia Hypothyroidism In past. Migraine Obsessive-compulsive disorder, unspecified PTSD (post-traumatic stress disorder) PTSD (post-traumatic stress disorder) Stage 3 chronic kidney disease Surgical History History of axillary surgery (~03/2016) Exploratory left armpit surgery. Performed by Dr. Chen at [facility] in [place], [place]. History of carpal tunnel surgery Both, Left wrist twice, right wrist once History of open reduction and internal fixation (ORIF) procedure (10/11/10) Right clavicle. Performed by Dr. Monroe at [facility] in [place], [place]. History of prolapse of bladder (~2008) bladder mesh History of removal of retained hardware (04/26/11) With open reduction and internal fixation of Rt clavicle. Performed by Dr. Hossein Ortiz at [facility] in [place], [place]. History of removal of retained hardware (12/12/12) Right shoulder. Performed by Dr. Hossein Ortiz at [facility] in [place], [place]. History of suburethral sling procedure (08/29/07) Anterior vaginal repair & transobturator suburethral sling; Dx: Cystocele, BRANDEN. Performed by Dr. Rosenberg at [facility] in [place], [place]. History of tubal ligation (~1996) Hx of bilateral breast reduction surgery (~2002) Hx of colonoscopy (~2020) Hx of ectopic (~1986) Laparoscopic treatment of ectopic Hx of esophagogastroduodenoscopy (~2020) S/P laparoscopic assisted vaginal hysterectomy (LAVH) (01/21/08) With anterior repair. Performed by Dr. Bueno at [facility] in [place], [place] S/P laparoscopic cholecystectomy (~1996) Performed at [facility] in [place], [place] Family History Brother Hypertension Heart disease Colon cancer Father Hypertension Grandmother Diabetes Maternal Heart disease Maternal Unknown No problems noted. Mother Cancer leukemia, hodgkins Grandfather Cancer lung cancer, maternal Social History Smoking and tobacco/nicotine status: never used tobacco/nicotine Alcohol intake: current Alcohol intake frequency: holidays/special occasions only Substance/Drug Use: never Vitals/I&O/Wt Last Vital Signs Temp 97.6 F 04/14/23 07:49 Pulse 67 04/14/23 07:49 Resp 17 04/14/23 07:49 BP 92/54 04/14/23 07:49 Pulse Ox 99 04/14/23 07:49 O2 Del Method Room Air 04/14/23 07:49 04/13/23 04/14/23 04/14/23 22:59 06:59 14:59 Intake Total 1000 / 1000 Output Total 400 / 400 Balance 600 / 600 Weight last 48 hrs Weight 136 lb 6.4 oz Weight 127 lb Physical Exam Narrative: GENERAL: Patient is alert, awake and oriented x3. [] NECK: No jugular vein distension. [] HEENT: No cyanosis. No icterus. No pallor. [] HEART: Regular S1 and S2. No murmur, rub or gallop. [] LUNGS: Clear to auscultate bilaterally. [] CENTRAL NERVOUS SYSTEM: Grossly nonfocal. [] EXTREMITIES: Lower extremities with no edema Data 04/14/23 04:20 04/14/23 04:20 A&P Assessment and plan (1) NSTEMI (non-ST elevated myocardial infarction): (2) Exertional dyspnea: (3) Hyperlipidemia: (4) Stage 3 chronic kidney disease: Plan Patient has presented with symptoms of palpitations, dyspnea and chest discomfort. Troponins are trended up significantly. Given her risk factors and increasing troponins, we will proceed with coronary angiogram with possible percutaneous coronary intervention. Risks and benefits of the procedure have been discussed with her. She understands them and wants to proceed. Continue aspirin and anticoagulation Keep NPO At time of discharge will benefit from event monitor to rule out arrhythmias Thank you for involving us with care of this patient. We will continue to follow. please call with questions Consult Attestations Medical Necessity Statement: Care expected to cross 2 midnights. Coding Level of Care Code Acute Code for Chg Fwd Diagnoses NSTEMI (non-ST elevated myocardial infarction) I21.4 Exertional dyspnea R06.09 Hyperlipidemia E78.5 Stage 3 chronic kidney disease N18.30
--- NOTE | 2023-04-14 09:32 | PC.NURSE ---
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
--- NOTE | 2023-04-14 09:39 | W.PM.OPSUD ---
Surgery/Procedure H&P Update DATE OF PROCEDURE: April 14, 2023 DATE H&P PERFORMED: 04/14/23 H&P UPDATE INFORMATION: I have reviewed H&P completed within last 30 days, I have examined patient prior to procedure and No changes to prior documentation PREOP DIAGNOSIS: NSTEMI PRIMARY INDICATION FOR PROCEDURE: NSTEMI PLANNED PROCEDURE: Left heart cath with possible percutaneous coronary intervention PATIENT REASSESSED PRIOR TO SEDATION, WITH NO CHANGE NOTED: Yes PHYSICAL EXAM: alert, oriented x 3, clear to auscultation bilaterally and regular rate & rhythm AIRWAY EVAL/ANESTHESIA PLAN: normal airway, ASA III, Local Anesthesia, Risks, benefits & alternatives of sedation and/or procedure discussed and Patient agrees to continue as planned ADDITIONAL INFORMATION: Moderate sedation
--- NOTE | 2023-04-14 10:47 | PM.MISC ---
Miscellaneous Note Purpose of Documentation: Brief procedure note Note: Patent left main artery. Patent LAD, LCx and RCA Plan: Medical therapy. Will recommend event monitor at discharge for ruling out arrhythmias. Patient is stable to be discharged from cardiology standpoint.
[2023-04-14 11:04] LABS: Glucose Point of Care 83 mg/dL (70-110)
[2023-04-14] MEDS: aspirin 325 mg Tablet PO (11:22)
[2023-04-14] MEDS: pantoprazole DR 40 mg Tablet PO (11:22)
--- NOTE | 2023-04-14 14:48 | PC.NURSE ---
TR Band off an hour ago at 1 pm. Pt started bleeding on right wrist now. applied pressure for 10 mins, then reapply 10 ml of air in TR band. No hematoma or swelling noted on right arm. Dr Eli notified via telephone and order to leave the tr band for another hour before taking air out.
--- NOTE | 2023-04-14 16:08 | P.PN_ITS ---
Subjective Subjective: 04/14/2023. Patient had cardiac catheterization with patent vessels. Unclear etiology of troponin elevation. Subsequently she has had bleeding from the catheterization site. There is a pressure dressing on again. Patient is very anxious about leaving and would like to stay overnight. Vitals/I&O/Wt Last Vital Signs Temp 97.6 F 04/14/23 11:08 Pulse 71 04/14/23 11:08 Resp 23 H 04/14/23 11:08 BP 119/79 04/14/23 11:08 Pulse Ox 100 04/14/23 11:08 O2 Del Method Room Air 04/14/23 11:08 04/14/23 04/14/23 04/14/23 06:59 14:59 22:59 Intake Total 1000 / 1000 Output Total 400 / 400 Balance 600 / 600 Weight last 48 hrs Weight 61.87 kg Weight 57.606 kg Physical Exam Narrative: Patient is awake alert oriented her make-up is fully on. Heart: Regular S1-S2 without murmurs clicks gallops or rubs Lungs clear to auscultation anteriorly Abdomen soft nontender nondistended positive bowel sounds no hepatosplenomegaly Extremities no clubbing cyanosis or edema Data 04/14/23 04:20 04/14/23 04:20 A&P Assessment and plan (1) Troponin level elevated: Unclear etiology. No cardiac disease questionable coronary spasm. (2) Exertional dyspnea: 1 episode yesterday (3) Palpitations: 1 episode yesterday (4) PTSD (post-traumatic stress disorder): (5) Stage 3 chronic kidney disease: (6) Dependent personality disorder: (7) Generalized anxiety disorder: (8) Obsessive-compulsive disorder, unspecified: Plan Patient's heart rate and blood pressure will not allow for typical cardiac medic al treatment. Will await further recommendations from cardiology Attestations Medical Necessity Statement*: Patient to stay overnight a total of 2 midnights due to mild bleeding complication post cardiac catheterization Coding Level of Care Code Acute Code for Chg Fwd Diagnoses Troponin level elevated R79.89 Exertional dyspnea R06.09 Palpitations R00.2 PTSD (post-traumatic stress disorder) F43.10 Stage 3 chronic kidney disease N18.30 Dependent personality disorder F60.7 Generalized anxiety disorder F41.1 Obsessive-compulsive disorder, unspecified F42.9
[2023-04-14] MEDS: acetaminophen 325 mg Tablet 650 MG PO (17:00)
[2023-04-14 17:17] LABS: Glucose Point of Care 89 mg/dL (70-110)
[2023-04-14 19:23] LABS: Glucose Point of Care 71 mg/dL (70-110)
[2023-04-14] MEDS: cetirizine 10 mg Tablet PO (20:08)
[2023-04-14] MEDS: allopurinol 100 mg Tablet PO (20:08)
[2023-04-14] MEDS: lamoTRIgine 100 mg Tablet 150 MG PO (20:08)
[2023-04-14] MEDS: fluoxetine 20 mg Capsule 40 MG PO (20:08)
[2023-04-14] MEDS: CLONazepam 0.5 mg Tablet PO (20:19)
[2023-04-14 21:17] LABS: Glucose Point of Care 81 mg/dL (70-110)
[2023-04-14] MEDS: enoxaparin 60 mg/0.6 mL Syringe SUBCUT (23:45)
[2023-04-14] MEDS: loperamide 2 mg Capsule 4 MG PO (23:45)
[2023-04-15] VITALS: BP 110/68; PULSE 63; RESP 16; TEMP 36.9; O2SAT 98
[2023-04-15 04:00] VITALS: BP 109/67; PULSE 65; RESP 16; TEMP 36.6; O2SAT 99
[2023-04-15 05:03] LABS: Basophils % 0.4 %; Eosinophils # 0.1 10^3/uL (0.0-0.8); Eosinophils % 2.6 %; Hematocrit 35.7 % (36-47); Lymphocytes # 2.4 10^3/uL (0.8-4.8); Lymphocytes % 52.5 %; Mean Corpuscular HGB Conc 31.9 g/dL (30-55); Mean Corpuscular Hemoglobin 29.9 pg (27-33); Mean Corpuscular Volume 93.7 fl (85-98); Mean Platelet Volume 10.5 fL (7.4-10.4); Monocytes # 0.4 10^3/uL (0.2-0.9); Monocytes % 7.8 %; Neutrophils # 1.67 10^3/uL (1.8-7.7); Neutrophils % 36.5 %; Nucleated Red Blood Cells % 0 %; Platelet Count 232 10^3/cmm (157-399); Red Blood Count 3.81 10^6/uL (3.85-5.65); Red Cell Distribution Width 12.4 % (12.1-15.1); White Blood Count 4.59 10^3/uL (3.29-11.43)
[2023-04-15 05:20] LABS: Alanine Aminotransferase 10 U/L (0-33); Albumin Level 3.7 g/dL (3.5-5.2); Alkaline Phosphatase 66 U/L (35-105); Anion Gap 9.9 (5-19); Aspartate Amino Transferase 16 U/L (0-32); Blood Urea Nitrogen 12 mg/dL (6-20); Calcium 8.8 mg/dL (8.5-10.5); Carbon Dioxide 26 mmol/L (22-29); Chloride 107 mmol/L (98-107); Globulin 2.1 g/dL (1.3-4.6); Glomerular Filtration Rate 74.2 mL/min (90-130); Glucose 82 mg/dL (65-115); Osmolality Calculated 287 mOsm/kg (285-295); Potassium 3.9 mmol/L (3.5-5.1); Sodium 139 mmol/L (136-145); Total Bilirubin 0.4 mg/dL (0.15-1.2); Total Protein 5.8 g/dL (6.6-8.7)
[2023-04-15 05:44] VITALS: PULSE 66
[2023-04-15 06:18] LABS: Glucose Point of Care 84 mg/dL (70-110)
[2023-04-15 07:24] VITALS: BP 108/67; PULSE 74; RESP 15; TEMP 36.4; O2SAT 99
[2023-04-15] MEDS: aspirin 325 mg Tablet PO (08:46)
[2023-04-15] MEDS: pantoprazole DR 40 mg Tablet PO (08:46)
--- NOTE | 2023-04-15 09:00 | PM.PN ---
Subjective Subjective: Patient doing well. Yesterday she was worried about going home as had access site bleeding. No hematoma at radial access site Vitals/I&O/Wt Last Vital Signs Temp 97.6 F 04/15/23 07:24 Pulse 74 04/15/23 07:24 Resp 15 04/15/23 07:24 BP 108/67 04/15/23 07:24 Pulse Ox 99 04/15/23 07:24 O2 Del Method Room Air 04/15/23 07:24 04/14/23 04/15/23 04/15/23 22:59 06:59 14:59 Intake Total 854 / 1854 740 / 2594 Balance 854 / 1854 740 / 2594 Weight last 48 hrs Weight 125 lb 11.2 oz Weight 136 lb 6.4 oz Weight 127 lb Physical Exam Narrative: GENERAL: Patient is alert, awake and oriented x3. [] NECK: No jugular vein distension. [] HEENT: No cyanosis. No icterus. No pallor. [] HEART: Regular S1 and S2. No murmur, rub or gallop. [] LUNGS: Clear to auscultate bilaterally. [] CENTRAL NERVOUS SYSTEM: Grossly nonfocal. [] EXTREMITIES: Lower extremities with no edema Data 04/15/23 04:09 04/15/23 04:09 A&P Assessment and plan (1) Exertional dyspnea: (2) Hyperlipidemia: (3) Stage 3 chronic kidney disease: (4) Troponin level elevated: Plan No CAD noted on coronary angiogram. Likely symptoms/troponin elevation from coronary spasm vs possible tachycardia (history concerning for SVT) . We will put her on metoprolol 25mg BID PRN if has prolonged palpitation episodes ECHO shows normal LV systolic function. Event monitor for 30 days as outpatient Thank you for involving us with care of this patient. Patient is stable to be discharged from cardiology standpoint. please call with questions Attestations Medical Necessity Statement*: Care expected to cross 2 midnights. Coding Level of Care Code Acute Code for Chg Fwd Diagnoses Exertional dyspnea R06.09 Hyperlipidemia E78.5 Stage 3 chronic kidney disease N18.30 Troponin level elevated R79.89
[2023-04-15 09:32] VITALS: BP 108/67; PULSE 74; RESP 15; TEMP 36.4; O2SAT 99
--- NOTE | 2023-04-15 09:32 | P.DS_ITS ---
Discharge Providers Date of Admission: 04/13/23 20:57 Date of Discharge: April 15, 2023 Attending Provider at Admission: Vitor Cutler Attending Provider at Discharge: Cecil Saucedo DO Consults: Dr. Hays Primary Care Provider: Priyank Stafford NP Diagnoses at Discharge Discharge Diagnosis (1) Exertional dyspnea: Status: Acute (2) Hyperlipidemia: Status: Acute (3) Stage 3 chronic kidney disease: Status: Acute (4) Troponin level elevated: Status: Acute Reason for Visit Reason for Visit: sob, racing heart Brief History: Gabi Campbell is a 57 year old female with no prior cardiac history presented to hospital with palpitations, chest discomfort and shortness of breath.? She said the episode lasted for several minutes.? She had significant difficulty breathing at the time.? Her troponins have trended up significantly from baseline of 14 to 47 at 6 hours. EKG did not show significant ischemic changes Patient has strong family history of CAD. Hospital Course Hospital Course Patient was taken to the Electronic Technologist the following day. Her coronary arteries were patent. Dr. Hays felt that she could have had a troponin leak due to her SVT. He will place her on metoprolol low-dose as needed. She will have a 30- day event monitor. She will follow-up with him after that 30 days. She is suffering from diarrhea in the hospital. We have given her Imodium and she can take as an outpatient as well as probiotics. Physical Exam Narrative: Patient is awake alert oriented her make-up is fully on. Heart: Regular S1-S2 without murmurs clicks gallops or rubs Lungs clear to auscultation anteriorly Abdomen soft nontender nondistended positive bowel sounds no hepatosplenomegaly Extremities right wrist is mildly swollen nonpainful no further bleeding. No edema in the lower extremities Discharge Data Studies Completed and Pending Completed Studies During Hospitalization Category Date Time Status XR chest 1V portable [id number] Stat Exams 04/13/23 15:56 Completed CV. echo complete* [id number] Routine Ultrasound 04/13/23 21:56 Completed Pending at discharge Category Date Time Status PERCH MENDER request for service Routine Exams 04/14/23 07:50 Ordered MCT/Event Monitor 30 Days Routine Exams 04/15/23 08:55 Ordered Clostridium Difficile PCR Routine Lab 04/14/23 23:55 Received Complete Blood Count w/Auto AM LABS Lab 04/16/23 04:00 Ordered Comprehensive Metabolic Panel AM LABS Lab 04/16/23 04:00 Ordered Lamotrigine (Lamictal) Level Routine Lab 04/13/23 22:11 Received Laboratory Results WBC 4.59 10^3/uL (3.29-11.43) 04/15/23 04:09 RBC 3.81 10^6/uL (3.85-5.65) L 04/15/23 04:09 Hgb 11.40 g/dL (11.27-16.99) 04/15/23 04:09 Hct 35.7 % (36-47) L 04/15/23 04:09 MCV 93.7 fl (85-98) 04/15/23 04:09 MCH 29.9 pg (27-33) 04/15/23 04:09 MCHC 31.9 g/dL (30-55) 04/15/23 04:09 RDW 12.4 % (12.1-15.1) 04/15/23 04:09 Plt Count 232 10^3/cmm (157-399) 04/15/23 04:09 MPV 10.5 fL (7.4-10.4) H 04/15/23 04:09 Neut % (Auto) 36.5 % 04/15/23 04:09 Lymph % (Auto) 52.5 % 04/15/23 04:09 [place] % (Auto) 7.8 % 04/15/23 04:09 Eos % (Auto) 2.6 % 04/15/23 04:09 Baso % (Auto) 0.4 % 04/15/23 04:09 Neut # (Auto) 1.67 10^3/uL (1.8-7.7) L 04/15/23 04:09 Lymph # (Auto) 2.4 10^3/uL (0.8-4.8) 04/15/23 04:09 [place] # (Auto) 0.4 10^3/uL (0.2-0.9) 04/15/23 04:09 Eos # (Auto) 0.1 10^3/uL (0.0-0.8) 04/15/23 04:09 Baso # (Auto) 0.0 10^3/uL (0.0-0.1) 04/15/23 04:09 Nucleated RBC % (auto) 0 % 04/15/23 04:09 Nucleated RBCs # 0.0 /100WBC 04/15/23 04:09 D-Dimer 0.59 ug/mLFEU (0-0.59) 04/13/23 16:15 Sodium 139 mmol/L (136-145) 04/15/23 04:09 Potassium 3.9 mmol/L (3.5-5.1) 04/15/23 04:09 Chloride 107 mmol/L (98-107) 04/15/23 04:09 Carbon Dioxide 26 mmol/L (22-29) 04/15/23 04:09 Anion Gap 9.9 (5-19) 04/15/23 04:09 BUN 12 mg/dL (6-20) 04/15/23 04:09 Creatinine 0.8 mg/dL (0.5-0.9) 04/15/23 04:09 GFR Calculation 74.2 mL/min (90-130) L 04/15/23 04:09 Glucose 82 mg/dL (65-115) 04/15/23 04:09 POC Glucose 84 mg/dL (70-110) 04/15/23 06:10 Estimat Average Glucose 91 04/13/23 16:15 Hemoglobin A1c 4.8 % (4.0-6.0) 04/13/23 16:15 Calculated Osmolality 287 mOsm/kg (285-295) 04/15/23 04:09 Calcium 8.8 mg/dL (8.5-10.5) 04/15/23 04:09 Magnesium 2.0 mg/dL (1.7-2.3) 04/14/23 04:20 Total Bilirubin 0.4 mg/dL (0.15-1.2) 04/15/23 04:09 AST 16 U/L (0-32) 04/15/23 04:09 ALT 10 U/L (0-33) 04/15/23 04:09 Alkaline Phosphatase 66 U/L (35-105) 04/15/23 04:09 Troponin T Baseline 14 ng/L (0-10) H 04/13/23 16:15 Troponin T 120 Minute 33.46 ng/L (0-10) H 04/13/23 18:21 Delta Troponin T 19.46 ABS# (0-10) H* 04/13/23 18:21 Troponin T Hi Sens 6Hr 47.92 ng/L (0-10) H 04/13/23 22:11 Troponin T Hi Sens 6Hr Delta 33.92 ng/L (0-12) H* 04/13/23 22:11 NT-Pro-B Natriuret Pep 36 pg/mL (0-125) 04/13/23 16:15 Total Protein 5.8 g/dL (6.6-8.7) L 04/15/23 04:09 Albumin 3.7 g/dL (3.5-5.2) 04/15/23 04:09 Globulin 2.1 g/dL (1.3-4.6) 04/15/23 04:09 Triglycerides 77 mg/dL (0-150) 04/14/23 04:20 Cholesterol 156 mg/dL (0-200) 04/14/23 04:20 LDL Cholesterol, Calc 90 mg/dL (50-129) 04/14/23 04:20 HDL Cholesterol 51 mg/dL (60-100) L 04/14/23 04:20 LDL/HDL Ratio 1.76 RATIO (0.00-3.22) 04/14/23 04:20 Cholesterol/HDL Ratio 3.06 mg/dL (0.0-4.40) 04/14/23 04:20 TSH 5.50 uIU/mL (0.27-4.20) H 04/14/23 04:20 Vitals Last Vital Signs Temp 97.6 F 04/15/23 07:24 Pulse 74 04/15/23 07:24 Resp 15 04/15/23 07:24 BP 108/67 04/15/23 07:24 Pulse Ox 99 04/15/23 07:24 O2 Del Method Room Air 04/15/23 07:24 Discharge Plan Discharge Patient Disposition: Home Condition: Stable Prescriptions: New metoprolol tartrate 25 mg tablet 25 mg PO BID MDD 50 mg PRN (Reason: Please take if have palpitations for over 20 mins) Qty: 60 1RF Continued allopurinol 100 mg tablet 100 mg PO QPM sumatriptan succinate [Imitrex STATdose Pen] 6 mg/0.5 mL pen injector See Rx Instructions .ROUTE .COMPLEX Rx Instructions: one pen subcutaneously as a single dose as directed prn ibuprofen 800 mg tablet 800 mg PO BID PRN (Reason: Pain) clonazepam 0.5 mg tablet 0.5 mg PO BID PRN (Reason: Anxiety) Qty: 60 2RF Lamictal 100 mg tablet 150 mg PO BEDTIME Qty: 45 2RF ropinirole 1 mg tablet 1 mg PO DAILY ropinirole 2 mg tablet 2 mg PO BID fluticasone propionate 50 mcg/actuation spray,suspension 2 spray INTRANASAL DAILY cetirizine 10 mg tablet 10 mg PO QPM Patient Comments: no longer taking this med orphenadrine citrate 100 mg tablet extended release 100 mg PO BID PRN (Reason: Pain) Mounjaro 12.5 mg/0.5 mL pen injector 12.5 mg SUBCUT Q7D Prozac 40 mg capsule 40 mg PO QPM Lasix 40 mg tablet 40 mg PO QAM PRN (Reason: Edema) trazodone 100 mg tablet 100 mg PO BEDTIME PRN (Reason: Sleep) Discharge Orders: Discharge Order (Routine); Ordered 04/15/23 Ordered By: Cecil Saucedo Referrals: Chang Eli M.D [Physician] - (Your Dr. Eli follow up appointment will be scheduled while you are at your [facility]ora appointment. Thank you.) Priyank Stafford NP [Primary Care Provider] - 04/20/23 2:30 pm Alice Lora FNP [Nurse Practitioner] - 04/21/23 10:30 am Discharge Diet: Low Salt, Low Cholesterol and Low Fat Discharge Activity: Increase activity as tolerated Patient Instructions: Coronary Angioplasty (DC), Opioid Safety, Post Angiogram Home Care Instructions, Post Heart Attack Stoplight Activity Restrictions/Additional Instructions: Recommend Imodium and probiotic for current diarrhea. Discharge Attestations Time Spent in Discharge Care*: less than 30 min Quality Metrics Clinical Quality Measures [ No reported AMI, CVA or VTE this stay] Coding Level of Care Code Acute Code for Chg Fwd Diagnoses Exertional dyspnea R06.09 Hyperlipidemia E78.5 Stage 3 chronic kidney disease N18.30 Troponin level elevated R79.89
[2023-04-19 08:28] LABS: Lamotrigine (Lamictal) Level 0.9 mcg/mL (2.5-15.0)
== END 2023-04-15 11:58 | disposition home or self-care (01) ==
LOC: ER 20:47 → CSU 20:57
PROVIDERS: Internal Medicine; Admitting Provider Internal Medicine; Emergency Provider Emergency Medicine; PCP Nurse Practitioner Family; Visit Provider Internal Medicine
DX: R06.09 Other forms of dyspnea (principal); E78.5 Hyperlipidemia, unspecified; N18.30 Chronic kidney disease, stage 3 unspecified; R79.89 Other specified abnormal findings of blood chemistry; Z82.49 Family history of ischemic heart disease and other diseases of the circulatory system; F42.9 Obsessive-compulsive disorder, unspecified; F41.1 Generalized anxiety disorder; F60.7 Dependent personality disorder; F43.10 Post-traumatic stress disorder, unspecified; R00.2 Palpitations; S32.000D Wedge compression fracture of unspecified lumbar vertebra, subsequent encounter for fracture with routine healing; V89.2XXD Person injured in unspecified motor-vehicle accident, traffic, subsequent encounter; G43.909 Migraine, unspecified, not intractable, without status migrainosus
CPT/HCPCS: 36415; 36416; 71045; 80053; 80061; 80175; 82962; 83036; 83735; 83880; 84443; 84484; 85025; 85378; 87493; 93005; 93306; 93458; 96360; 96361; 96365; 96372; 99152; 99153; 99285; C1769; C1887; C1894; G0378; J1644; J1650; J2250; J3010; J3490; J7030; J7120; Q9967

== ENCOUNTER 2023-05-23 08:33 | Outpatient (CLI) | payer MEDICARE, SELFPAY ==
--- NOTE | 2023-05-23 08:41 | MR_ITS ---
WS: [id number] MRI LUMBAR SPINE NONCONTRAST TECHNIQUE: Sagittal T1, T2 and STIR imaging. Axial T1 and T2 imaging. CLINICAL INFORMATION: FX OF 3RD LUMBAR VERTEBRA COMPARISON: MRI 2012 FINDINGS: Mild lumbar curve. No acute compression. Slight anterolisthesis L2 on L3. This is progressed compared to 2012 L1-L2: Normal. L2-L3: Grade 1 anterolisthesis progressed compared to previous. Disc bulging in combination with face t arthropathy and ligamentum flavum hypertrophy results in moderate to severe central canal stenosis new compared to previous. Impingement on the traversing L3 nerve roots bilaterally. Redundancy of the cauda equina nerve rootlets. Mild bilateral foraminal narrowing. L3-L4: Mild annular bulging. Moderate arthropathy. Slight narrowing of the subarticular recess bilate rally is new compared to previous. Mild bilateral foraminal narrowing. L4-L5: Mild annular bulging. Mild central canal stenosis with impingement traversing L5 nerve roots. Moderate facet arthropathy. Mild bilateral foraminal narrowing. L5-S1: Mild annular bulging. Slight effacement of the ventral thecal sac. Spinal canal is patent. Mil d LEFT foraminal narrowing. Visualized pelvic bony structures: Normal. Paravertebral soft tissues: Normal. Incidental Tarlov cyst in the sacrum. IMPRESSION: 1. Slight anterolisthesis L2 on L3 progressed compared to 2012. 2. Moderate to severe central canal stenosis L2-3 progressed compared to previous with impingement t raversing L3 nerve roots bilaterally. 3. Annular bulging L3-4 and L4-5 with narrowing of the subarticular recess bilaterally worse at RIGH T L4-5. 4. Mild foraminal narrowing described above.
== END 2023-05-23 08:34 | disposition home or self-care (01) ==
LOC: RAD 08:34
PROVIDERS: PCP Nurse Practitioner Family; Visit Provider Family Medicine
DX: M51.36 Other intervertebral disc degeneration, lumbar region (principal); M47.897 Other spondylosis, lumbosacral region; M48.061 Spinal stenosis, lumbar region without neurogenic claudication
CPT/HCPCS: 72148

== ENCOUNTER 2023-06-20 10:28 | Emergency (ER) | payer MEDICARE, SELFPAY ==
[2023-06-20 10:39] VITALS: BP 123/76; PULSE 62; TEMP 36.4; O2SAT 100; BMI 22.1
--- NOTE | 2023-06-20 12:52 | ED_ITS ---
HPI - Headache 2 General: Chief Complaint: Headache Stated Complaint: ear pain, blurry vision Time Seen by Provider: 06/20/23 12:39 History of Present Illness: 57-year-old female presents emergency de partment with chief complaint of headache and ear symptoms. She reports that she has recently experienced the loss of her dog which she had for 14 years. This has set off cycles of headaches, anxiety, depression, some issues with sleep. She reports most of her headaches have not reached a migraine status. She did have 1 about a week ago and went to her doctor and got a shot. Patient reports she started having some irritation in both of her ears about 2 weeks ago. She was using Q-tips and at first was not seeing anything come out. About 1 week ago she noticed some bright red blood on her Q-tip on both sides. However, she was not seeing any blood come out or any discharge come out whenever she would lay on her pillow or wake up in the morning. She kept using Q-tips because she felt like she may be had a hair in her left ear canal. She reports that then she started worrying that maybe the ear was connected to her headaches. Then she started worrying that there is something wrong in her body and reports in general she just did not feel well with aching and fatigue. Associated symptoms: Deny chest pain, fever(s), nausea, rash, syncope or vomiting Review of Systems 2 General: Reports: 10 or more systems reviewed and unremarkable except in HPI and below Narrative: Notable positive review of systems include trouble focusing and a sensation of binocular blurry vision, occasional feeling of dizziness, headaches, irritation in her ear canals, trouble focusing, trouble sleeping, anxiety, stress about her dog, achiness in the body, fatigue, blood on the Q-tip whenever she probed her external auditory canals. Const: Denies: fever(s) or chills ENMT: Denies: throat pain Card: Denies: chest pain, edema or syncope Resp: Denies: dyspnea or productive cough GI: Denies: abdominal pain, nausea, vomiting or diarrhea : Denies: flank pain, dysuria or urinary frequency Musc: Denies: neck pain, back pain, extremity pain or extremity swelling Skin/Breast: Denies: rash or erythema Neuro: Denies: numbness in extremities, weakness in extremities, lack of coordination or difficulty walking PFSH ED 2 PFSH: Medical History (Updated 06/20/23 @ 13:34 by Murphy Puga MD) Hypoglycemia Troponin level elevated PTSD (post-traumatic stress disorder) Gastric polyp Hyperlipidemia Gout Stage 3 chronic kidney disease Hypothyroidism In past. PTSD (post-traumatic stress disorder) Generalized anxiety disorder Dependent personality disorder Obsessive-compulsive disorder, unspecified Surgical History Hx of esophagogastroduodenoscopy (~2020) Hx of colonoscopy (~2020) History of removal of retained hardware (12/12/12) Right shoulder. [place] [facility] [place] History of removal of retained hardware (04/26/11) With open reduction and internal fixation of Rt clavicle. [place]. Hossein Ortiz [place] [facility] [place]. History of open reduction and internal fixation (ORIF) procedure (10/11/10) Right clavicle. [place]. [place] [facility] [place] History of prolapse of bladder (~2008) bladder mesh S/P laparoscopic assisted vaginal hysterectomy (LAVH) (01/21/08) With anterior repair. Performed by Dr. Bueno at [facility] in [place], [place] History of suburethral sling procedure (08/29/07) Anterior vaginal repair & transobturator suburethral sling; Dx: Cystocele, BRANDEN. [place]. Rosen[place] [facility] [place]. Hx of bilateral breast reduction surgery (~2002) S/P laparoscopic cholecystectomy (~1996) [place] [facility] [place] History of tubal ligation (~1996) Hx of ectopic (~1986) Laparoscopic treatment of ectopic History of carpal tunnel surgery Both, Left wrist twice, right wrist once History of axillary surgery (~03/2016) Exploratory left armpit surgery. [place]. [place] [facility] [place] Family History Brother Hypertension Heart disease Colon cancer Father Hypertension Grandmother Diabetes Maternal Heart disease Maternal Unknown No problems noted. Mother Cancer leukemia, hodgkins Grandfather Cancer lung cancer, maternal Social History (Reviewed 04/21/23 @ 08:45 by DAMIEN Collins Smoking and tobacco/nicotine status: never used tobacco/nicotine Alcohol intake: current Alcohol intake frequency: holidays/special occasions only Substance/Drug Use: never Physical Exam 2 Narrative: EXAM NARRATIVE: Well-kempt, cooperative. Very anxious. Flight of ideas noted right off the bat. Const: COMMON NORMALS: no limitations, alert and well nourished EXAM LIMITATIONS: no altered mental status HENMT: COMMON NORMALS: normocephalic, atraumatic, external ears normal and TM's normal bilaterally HEAD & SCALP: normocephalic and atraumatic FACE & SINUS: normal facial exam, sinuses nontender and face symmetric GENERAL EAR: hearing not grossly impaired EXTERNAL EAR: Yes external ears normal, Yes mastoids normal and Yes no periauricular adenopathy EXTERNAL AUDITORY CANAL: Abnormal EAC present EAC laterality: bilateral TYMPANIC MEMBRANE: TM's normal bilaterally MOUTH: no muffled voice OTHER: The right external auditory canal reveals a small abrasion in the superior and medial aspect. It looks like it is well-healed. There is very little erythema and no scabbing. No pustules, no exudates, no flakiness or other discharge. The tympanic membrane on the right side is completely normal. Mastoid is nontender. The left external auditory canal has a small abrasion in the inferior aspect. There is a hair that is black in color resting against the tympanic membrane. The tympanic membrane itself is completely normal. There are no effusions on either side. The left mastoid is nontender without any redness warmth, or other abnormal findings. Eye: COMMON NORMALS: EOMs intact bilaterally, conjunctivae normal and no scleral icterus CONJUNCTIVA: Yes conjunctivae normal Neck/C-Spine: COMMON NORMALS: no JVD GENERAL: Yes normal visual inspection and Yes trachea midline Resp: COMMON NORMALS: normal respiratory effort, No use of accessory muscles and clear to auscultation bilaterally AUSCULTATION: clear to auscultation bilaterally Cardio: COMMON NORMALS: no JVD, regular rate and regular rhythm RATE: r egular rate RHYTHM: regular rhythm GI: COMMON NORMALS: Soft to palpation and non-tender PALPATION: Yes Soft to palpation and No Guarding due to palpation present (GI) Extremity: COMMON NORMALS: normal to inspection Neuro: COMMON NORMALS: moves all extremities, no focal motor deficits and no sensory deficits noted SENSORIUM/ORIENTATION: Yes alert SPEECH: speech normal Psych: COMMON NORMALS: mental status grossly normal and cooperative; negative for speech normal (Rapid speech, flight of ideas) SPEECH: No normal speech (Rapid speech, flight of ideas) Skin: COMMON NORMALS: no rashes or lesions noted, turgor normal and no jaundice GENERAL SKIN EXAM: no rashes or lesions noted and turgor normal Course 2 Vital Signs: Vital signs: Vital Signs Temperature 97.6 F 06/20/23 10:39 Pulse Rate 53 L 06/20/23 13:43 Blood Pressure 120/72 06/20/23 13:43 Pulse Oximetry 100 06/20/23 13:43 Oxygen Delivery Me thod Room Air 06/20/23 13:43 MDM - Headache Medical Decision Making This is a very anxious 57-year-old female who has been through a lot of stress recently. She had does have a black area resting against her left tympanic membrane. I suspect this triggered her to start using Q-tips. The abrasions that I am seeing in the external auditory canals are linear and I am wondering whether they were caused by the Q-tips themselves. The tympanic membranes are normal, no effusions, no mastoid tenderness redness or warmth. The temples are soft and nontender. Her headaches sound most consistent with tension type headaches. She does not have any focal neurologic abnormalities. Her cranial nerves are normal. She has no adenopathy about the neck and no meningeal signs. My suspicion is that she is having a mental health issue that is causing secondary nonspecific somatic symptoms. The exception would be the hair against her left tympanic membrane which triggered her to start using Q-tips. We will need to flush this out. I discussed the differential with the patient including other organic pathologies (glycemic, metabolic, infectious, autoimmune, etc.) and ultimately she feels like she would be more reassured if we did a larger workup and checked out her head with the CT scan and checked her labs. I am going to make sure her thyroid disease is controlled, normal sugar, no acid-base disturbances, normal electrolytes, no significant white blood cell count abnormalities, check inflammatory markers, check LFTs, etc. I am also get a give her some Compazine and Benadryl to help with her headache and anxiety. Update 1500 Patient's labs were notable for normal white blood cell count without left shift, normal CMP, normal ESR. The CRP was minimally elevated but not to the degree where I would suspect vasculitis or suspect an autoimmune pathophysiology. TSH came back normal. CT head no acute abnormalities. No mastoid effusions, masses, hydrocephalus, or other acute pathology. There is some evidence of sinusitis. The patient has no symptoms of acute sinusitis and upon talking to her does have a history of chronic sinusitis. Patient reevaluated and is now much calmer after the Compazine and Benadryl. Her entire demeanor is improved. She is able to focus and no longer has flight of ideas. I think the medication was both diagnostic and therapeutic. Nursing staff are going to irrigate out her left ear and then patient can be discharged. I am going to put her on some Cortisporin otic for her external auditory canal abrasions. I also explained holistic ways to deal with stress. Patient also managed with fluoxetine and clonazepam. Patient will be appropriate for discharge and outpatient follow-up. Lab Data 06/20/23 13:13 06/20/23 13:13 Laboratory Results WBC 5.15 10^3/uL (3.29-11.43) 06/20/23 13:13 RBC 4.12 10^6/uL (3.85-5.65) 06/20/23 13:13 Hgb 12.20 g/dL (11.27-16.99) 06/20/23 13:13 Hct 38.3 % (36-47) 06/20/23 13:13 MCV 93.0 fl (85-98) 06/20/23 13:13 MCH 29.6 pg (27-33) 06/20/23 13:13 MCHC 31.9 g/dL (30-55) 06/20/23 13:13 RDW 12.6 % (12.1-15.1) 06/20/23 13:13 Plt Count 396 10^3/cmm (157-399) 06/20/23 13:13 MPV 9.9 fL (7.4-10.4) 06/20/23 13:13 Neut % (Auto) 57.2 % 06/20/23 13:13 Lymph % (Auto) 36.5 % 06/20/23 13:13 [place] % (Auto) 4.7 % 06/20/23 13:13 Eos % (Auto) 1.0 % 06/20/23 13:13 Baso % (Auto) 0.4 % 06/20/23 13:13 Neut # (Auto) 2.95 10^3/uL (1.8-7.7) 06/20/23 13:13 Lymph # (Auto) 1.9 10^3/uL (0.8-4.8) 06/20/23 13:13 [place] # (Auto) 0.2 10^3/uL (0.2-0.9) 06/20/23 13:13 Eos # (Auto) 0.1 10^3/uL (0.0-0.8) 06/20/23 13:13 Baso # (Auto) 0.0 10^3/uL (0.0-0.1) 06/20/23 13:13 Nucleated RBC % (auto) 0 % 06/20/23 13:13 Nucleated RBCs # 0.0 /100WBC 06/20/23 13:13 ESR 13 mm/hr (0-15) 06/20/23 13:13 Sodium 140 mmol/L (136-145) 06/20/23 13:13 Potassium 3.9 mmol/L (3.5-5.1) 06/20/23 13:13 Chloride 105 mmol/L (98-107) 06/20/23 13:13 Carbon Dioxide 26 mmol/L (22-29) 06/20/23 13:13 Anion Gap 12.9 (5-19) 06/20/23 13:13 BUN 17 mg/dL (6-20) 06/20/23 13:13 Creatinine 0.8 mg/dL (0.5-0.9) 06/20/23 13:13 GFR Calculation 74.2 mL/min (90-130) L 06/20/23 13:13 Glucose 93 mg/dL (65-115) 06/20/23 13:13 Calculated Osmolality 291 mOsm/kg (285-295) 06/20/23 13:13 Calcium 9.9 mg/dL (8.5-10.5) 06/20/23 13:13 Total Bilirubin 0.2 mg/dL (0.15-1.2) 06/20/23 13:13 AST 25 U/L (0-32) 06/20/23 13:13 ALT 22 U/L (0-33) 06/20/23 13:13 Alkaline Phosphatase 68 U/L (35-105) 06/20/23 13:13 C-Reactive Protein 14.8 mg/L (0.0-4.9) H 06/20/23 13:13 Total Protein 7.6 g/dL (6.6-8.7) 06/20/23 13:13 Albumin 4.0 g/dL (3.5-5.2) 06/20/23 13:13 Globulin 3.6 g/dL (1.3-4.6) 06/20/23 13:13 TSH 2.45 uIU/mL (0.27-4.20) 06/20/23 13:13 All radiology interpretation(s) finalized by discharge Discharge Plan Discharge Patient Disposition: Home Clinical Impression: Foreign body in right ear, initial encounter, Abrasion of ear canal, Acute reaction to situational stress, Frequent headaches, Encounter for medical screening examination Condition: Stable Prescriptions: New [id number] 3.5-10,000-1 mg/mL-unit/mL-% drops,suspension 4 drp otic (ear) Q8H 7 Days Qty: 10 0RF No Action allopurinol 100 mg tablet 100 mg PO QPM sumatriptan succinate [Imitrex STATdose Pen] 6 mg/0.5 mL pen injector See Rx Instructions .ROUTE .COMPLEX Rx Instructions: one pen subcutaneously as a single dose as directed prn trazodone 100 mg tablet 100 mg PO BEDTIME PRN (Reason: Sleep) Qty: 30 2RF clonazepam 0.5 mg tablet 0.5 mg PO BID PRN (Reason: Anxiety) Qty: 60 2RF Lamictal 100 mg tablet 150 mg PO BEDTIME Qty: 45 2RF fluoxetine [Prozac] 40 mg capsule 40 mg PO QPM Qty: 30 2RF ropinirole 1 mg tablet 1 mg PO QAM ropinirole 2 mg tablet 2 mg PO QPM fluticasone propionate 50 mcg/actuation spray,suspension 2 spray INTRANASAL DAILY PRN (Reason: allergies) cetirizine 10 mg tablet 10 mg PO QPM Patient Comments: no longer taking this med furosemide [Lasix] 40 mg tablet 40 mg PO QAM PRN (Reason: Edema) Discharge Orders: Discharge ED (Routine); Ordered 06/20/23 Ordered By: Murphy Puga Referrals: Wily Graf MD [Primary Care Provider] - 4-7 days Discharge Diet: Usual diet Discharge Activity: Increase activity as tolerated Patient Instructions: Headache, Stress (ED), Pain Management Activity Restrictions/Additional Instructions: Please read all discharge instructions and abide by recommendations and return precautions. Make an appointment to follow-up with your primary care doctor as directed for follow-up. Return to ER if getting worse or other emergent symptoms. Coding Level of Care Code ED Used Equipment Sales Representative for Carissa Rocha
--- NOTE | 2023-06-20 13:04 | CT_ITS ---
WS: [id number] CT scan of the head, 06/20/2023 Clinical Data: persistent headaches feels pressure middle ears mastoids Comparison: CT head, 05/21/2021 DLP: 952.[address] scans at [facility] use at least one of these dose optimization techniques: automated e xposure control; mA and/or kV adjustment per patient size (includes targeted exams where dose is matc hed to clinical indication); or iterative reconstruction. Findings: The ventricular system is normal without shift. No recent infarct or hemorrhage is seen. There are no abnormal intracerebral masses. The cerebellum and brainstem are not remarkable. Bony windows of the skull and skull base show no fractures or erosions. The mastoid air cells, promotions intern al auditory canals, sella turcica and intraorbital contents are unremarkable. There is partial opacif ication of the visualized portion of the right maxillary sinus. Impression: 1. Negative for acute intracranial abnormality. 2. Acute and/or chronic right maxillary sinusitis.
[2023-06-20 13:21] LABS: Basophils % 0.4 %; Eosinophils # 0.1 10^3/uL (0.0-0.8); Hematocrit 38.3 % (36-47); Lymphocytes # 1.9 10^3/uL (0.8-4.8); Lymphocytes % 36.5 %; Mean Corpuscular HGB Conc 31.9 g/dL (30-55); Mean Corpuscular Hemoglobin 29.6 pg (27-33); Mean Platelet Volume 9.9 fL (7.4-10.4); Monocytes # 0.2 10^3/uL (0.2-0.9); Monocytes % 4.7 %; Neutrophils # 2.95 10^3/uL (1.8-7.7); Neutrophils % 57.2 %; Nucleated Red Blood Cells % 0 %; Platelet Count 396 10^3/cmm (157-399); Red Blood Count 4.12 10^6/uL (3.85-5.65); Red Cell Distribution Width 12.6 % (12.1-15.1); White Blood Count 5.15 10^3/uL (3.29-11.43)
[2023-06-20 13:25] LABS: Erythrocyte Sedimentation Rate 13 mm/hr (0-15)
[2023-06-20] MEDS: prochlorperazine 10 mg/2 mL Inj IVP (13:30)
[2023-06-20] MEDS: ketorolac 30 mg/mL INJ 15 MG IVP (13:31)
[2023-06-20] MEDS: diphenhydrAMINE 50 mg/mL SDV 1mL IVP (13:33)
[2023-06-20 13:36] LABS: Alanine Aminotransferase 22 U/L (0-33); Alkaline Phosphatase 68 U/L (35-105); Anion Gap 12.9 (5-19); Aspartate Amino Transferase 25 U/L (0-32); Blood Urea Nitrogen 17 mg/dL (6-20); C Reactive Protein 14.8 mg/L (0.0-4.9); Calcium 9.9 mg/dL (8.5-10.5); Carbon Dioxide 26 mmol/L (22-29); Chloride 105 mmol/L (98-107); Globulin 3.6 g/dL (1.3-4.6); Glomerular Filtration Rate 74.2 mL/min (90-130); Glucose 93 mg/dL (65-115); Osmolality Calculated 291 mOsm/kg (285-295); Potassium 3.9 mmol/L (3.5-5.1); Sodium 140 mmol/L (136-145); Total Bilirubin 0.2 mg/dL (0.15-1.2); Total Protein 7.6 g/dL (6.6-8.7)
--- NOTE | 2023-06-20 13:42 | PC.NURSE ---
NURSE ASSUMED CARE AT 1330
[2023-06-20 13:43] VITALS: BP 120/72; PULSE 53; O2SAT 100
[2023-06-20 14:10] LABS: Thyroid Stimulating Hormone 2.45 uIU/mL (0.27-4.20)
== END 2023-06-20 15:20 | disposition home or self-care (01) ==
PROVIDERS: Emergency Provider Emergency Medicine; PCP Family Medicine
DX: T16.1XXA Foreign body in right ear, initial encounter (principal); S00.411A Abrasion of right ear, initial encounter; F43.0 Acute stress reaction; R51.9 Headache, unspecified; E78.5 Hyperlipidemia, unspecified; N18.30 Chronic kidney disease, stage 3 unspecified; W44.F9XA Other object of natural or organic material, entering into or through a natural orifice, initial encounter
CPT/HCPCS: 36415; 70450; 80053; 84443; 85025; 85651; 86140; 96374; 96375; 99285; J0780; J1200; J1885

== ENCOUNTER 2023-08-28 15:38 | Emergency (ER) | payer MEDICARE, SELFPAY ==
[2023-08-28 15:54] VITALS: BP 116/71; PULSE 69; RESP 18; TEMP 36.4; O2SAT 99; BMI 26.4
[2023-08-28 17:06] LABS: Basophils % 0.2 %; Eosinophils % 0.8 %; Lymphocytes # 1.6 10^3/uL (0.8-4.8); Lymphocytes % 31.1 %; Mean Corpuscular HGB Conc 31.8 g/dL (30-55); Mean Corpuscular Hemoglobin 29.7 pg (27-33); Mean Corpuscular Volume 93.7 fl (85-98); Mean Platelet Volume 9.8 fL (7.4-10.4); Monocytes # 0.5 10^3/uL (0.2-0.9); Monocytes % 9.8 %; Neutrophils % 57.9 %; Nucleated Red Blood Cells % 0 %; Platelet Count 355 10^3/cmm (157-399); Red Blood Count 4.27 10^6/uL (3.85-5.65); Red Cell Distribution Width 13.8 % (12.1-15.1); White Blood Count 5.01 10^3/uL (3.29-11.43)
[2023-08-28 17:22] LABS: Alanine Aminotransferase 28 U/L (0-33); Albumin Level 4.1 g/dL (3.5-5.2); Alkaline Phosphatase 82 U/L (35-105); Aspartate Amino Transferase 32 U/L (0-32); Blood Urea Nitrogen 12 mg/dL (6-20); Calcium 9.1 mg/dL (8.5-10.5); Carbon Dioxide 24 mmol/L (22-29); Chloride 106 mmol/L (98-107); Creatinine Clr Calc Pharmacy 67.0382; Globulin 2.4 g/dL (1.3-4.6); Glomerular Filtration Rate 74.2 mL/min (90-130); Glucose 78 mg/dL (65-115); Lipase 24 U/L (13-60); Osmolality Calculated 289 mOsm/kg (285-295); Sodium 140 mmol/L (136-145); Total Bilirubin 0.2 mg/dL (0.15-1.2); Total Protein 6.5 g/dL (6.6-8.7)
[2023-08-28 17:25] LABS: Anion Gap 14.1 (5-19); Potassium 4.1 mmol/L (3.5-5.1)
[2023-08-28 18:18] LABS: Add Urine Microscopic? YES; Bilirubin Urine 1+ (Negative); Blood Urine 3+ (Negative); Glucose Urine UA Norm (Normal); Ketones Urine Negative (Negative); Leukocyte Esterase Urine Trace (Negative); Nitrate Urine Negative (Negative); Protein Urine Neg (Negative); Specific Gravity, Urine 1.025 (1.005-1.030); Urine Appearance Clear (CLEAR); Urine Color Yellow (Yellow); Urobilinogen Urine Norm (Negative); pH Urine 5 (5-7)
[2023-08-28 18:19] LABS: Bacteria Urine TRACE /hpf; Mucus Urine 2+ /hpf; Squamous Epithelial Cell Urine 0-4 /hpf (0-5)
[2023-08-28 18:20] LABS: Add Urine Culture? Yes
[2023-08-28 18:42] VITALS: BP 113/58; PULSE 63; RESP 18; O2SAT 99
--- NOTE | 2023-08-28 19:32 | CTR_ITS ---
PROCEDURE INFORMATION: Exam: CT Abdomen And Pelvis With Contrast Exam date and time: 08/28/2023 7:41 PM Age: 57 years old Clinical indication: Abdominal pain; Generalized; Prior surgery; Surgery date: 6+ months; Surgery type: Hyst, mercedes; Additional info: Abd pain, n/v/d TECHNIQUE: Imaging protocol: Computed tomography of the abdomen and pelvis with contrast. Radiation optimization: All CT scans at this facility use at least one of these dose optimization techniques: automated exposure control; mA and/or kV adjustment per patient size (includes targeted exams where dose is matched to clinical indication); or iterative reconstruction. Contrast material: OMNI 350; Contrast volume: 100 ml; Contrast route: INTRAVENOUS (IV); COMPARISON: MR lumbar spine wo con* [id number] 05/23/2023 9:07 AM RADIATION DOSE METRICS: Total DLP (mGy-cm): 391.22 FINDINGS: Lungs: Mild bibasilar atelectasis and/or scarring. Heart: Heart size is within normal limits. There is no pericardial effusion or pericardial thickening. Liver: 9 mm simple cyst in the left lobe of the liver. Liver is otherwise unremarkable. Gallbladder and bile ducts: The gallbladder is surgically absent. There is no ductal dilatation. Pancreas: The pancreas is normal. Spleen: The spleen is normal. Adrenal glands: The adrenal glands are normal. Kidneys and ureters: There are bilateral subcentimeter renal low-density lesions which are too small for accurate characterization, likely reflecting simple cysts.. 5 mm nonobstructing right lower pole renal calculus. No other renal calcifications. No hydronephrosis. Stomach and bowel: Mild colonic diverticulosis without diverticulitis. There is no large or small bowel obstruction. There is no evidence of bowel wall thickening. Appendix: The proximal portions of a normal appendix are identified. There is no secondary evidence of acute appendicitis. Intraperitoneal space: No inflammatory changes are identified. There is no free fluid or fluid collection seen. There is no pneumoperitoneum. Vasculature: The aorta is normal in course and caliber. No significant atherosclerotic calcifications are present. Lymph nodes: There are no enlarged retroperitoneal or mesenteric lymph nodes. Urinary bladder: The bladder is decompressed and collapsed. No abnormality identified. Reproductive: The uterus is absent. Bones/joints: No acute osseous abnormalities are seen. Soft tissues: Tiny periumbilical hernia containing only fat. Diffuse increased soft tissue density in the subcutaneous fat of the anterior inferior abdominal wall, likely postoperative in nature. The soft tissues are otherwise within normal limits. CT/CT abdomen pelvis w con* [id number] IMPRESSION: 1. No acute intra-abdominal or pelvic process. 2. 5 mm nonobstructing right lower pole renal calculus. 3. Other nonemergent findings above. COMMENTS: Consistent with the [employer]'s Incidental Findings Committee white paper (J Am Brendan Radiol 2018): Any incidental renal lesion less than 1 cm or classified as too small to characterize, or any incidental cystic renal lesion characterized as simple-appearing, is likely benign. No follow-up imaging is recommended for these lesions per consensus recommendations based on imaging criteria.
[2023-08-28 19:35] VITALS: BP 121/69; PULSE 61; RESP 18; O2SAT 95
[2023-08-28] MEDS: iohexol 350 mg/mL 500 mL Btl (per mL) IV (19:46)
--- NOTE | 2023-08-28 19:46 | ED_ITS ---
HPI - Abdominal Pain 2 General: Chief Complaint: Abdominal Pain Stated Complaint: abd pain, D/N/V Time Seen by Provider: 08/28/23 17:44 History of Present Illness: Patient presents to the ER with complaints of abdominal pain times last 3 days. And diarrhea times last 3 weeks. Patient says she has chronic constipation and is on a laxative/enema regimen when she does not go for a long time. Patient says she did this about 3 weeks ago and has been having diarrhea ever since. Patient says she is normally goes about 1 time a week. Review of Systems 2 General: Reports: 10 or more systems reviewed and unremarkable except in HPI and below PFSH ED 2 PFSH: Medical History Hypoglycemia Troponin level elevated PTSD (post-traumatic stress disorder) Gastric polyp Hyperlipidemia Gout Stage 3 chronic kidney disease Hypothyroidism In past. PTSD (post-traumatic stress disorder) Generalized anxiety disorder Dependent personality disorder Obsessive-compulsive disorder, unspecified Surgical History Hx of esophagogastroduodenoscopy (~2020) Hx of colonoscopy (~2020) History of removal of retained hardware (12/12/12) Right shoulder. Performed by Dr. Hossein Ortiz at [facility] in [place], [place]. History of removal of retained hardware (04/26/11) With open reduction and internal fixation of Rt clavicle. Performed by Dr. Hossein Ortiz at [facility] [place] in [place], [place]. History of open reduction and internal fixation (ORIF) procedure (10/11/10) Right clavicle. Performed by Dr. Monroe at [facility] [place] in [place], [place]. History of prolapse of bladder (~2008) bladder mesh S/P laparoscopic assisted vaginal hysterectomy (LAVH) (01/21/08) With anterior repair. Performed by Dr. Bueno at [facility] in [place], [place] History of suburethral sling procedure (08/29/07) Anterior vaginal repair & transobturator suburethral sling; Dx: Cystocele, BRANDEN. Performed by Dr. Rosenberg at [facility] [place] in [place], [place]. Hx of bilateral breast reduction surgery (~2002) S/P laparoscopic cholecystectomy (~1996) Performed at [facility] [place] in [place], [place] History of tubal ligation (~1996) Hx of ectopic (~1986) Laparoscopic treatment of ectopic History of carpal tunnel surgery Both, Left wrist twice, right wrist once History of axillary surgery (~03/2016) Exploratory left armpit surgery. Performed by Dr. Chen at [facility] [place] in [place], [place]. Family History Brother Hypertension Heart disease Colon cancer Father Hypertension Grandmother Diabetes Maternal Heart disease Maternal Unknown No problems noted. Mother Cancer leukemia, hodgkins Grandfather Cancer lung cancer, maternal Social History Smoking and tobacco/nicotine status: never used tobacco/nicotine Alcohol intake: current Alcohol intake frequency: holidays/special occasions only Substance/Drug Use: never Physical Exam 2 Const: COMMON NORMALS: no acute distress, average body habitus, patient oriented x3, no limitations, healthy appearing, alert and well nourished HENMT: COMMON NORMALS: normocephalic, atraumatic, hearing grossly normal bilaterally, external ears normal, Normal external nose present, moist oral mucous membranes and oropharynx normal HEAD & SCALP: normocephalic and atraumatic NOSE: Normal external nose present EXTERNAL EAR: Yes external ears normal Neck/C-Spine: COMMON NORMALS: no JVD Chest: COMMONS NORMALS: normal inspection of the chest and normal palpation of entire chest wall Resp: COMMON NORMALS: normal respiratory effort, No retractions, No use of accessory muscles and clear to auscultation bilaterally AUSCULTATION: clear to auscultation bilaterally Cardio: COMMON NORMALS: no JVD, regular rate, regular rhythm, S1 normal heart sound present, S2 normal heart sound present, No gallops present (Cardio), No clicks present (Cardio), No murmurs present (Cardio) and No rub (Cardio) R ATE: regular rate RHYTHM: regular rhythm HEART SOUNDS: S1 normal heart sound present and S2 normal heart sound present GI: COMMON NORMALS: Normal to inspection, nondistended, normoactive bowel sounds present, Soft to palpation, No hepatosplenomegaly present and no masses; negative for non-tender (Mildly diffusely tender) PALPATION: Yes Soft to palpation and Yes No hepatosplenomegaly present Neuro: COMMON NORMALS: patient oriented x3 SENSORIUM/ORIENTATION: Yes alert Course 2 Vital Signs: Vital signs: Vital Signs Temperature 97.6 F 08/28/23 15:54 Pulse Rate 61 08/28/23 19:35 Respiratory Rate 18 08/28/23 19:35 Blood Pressure 121/69 08/28/23 19:35 Pulse Oximetry 95 08/28/23 19:35 Oxygen Delivery Me thod Room Air 08/28/23 15:54 MDM - Abdominal Pain Medical Decision Making Abdomen pelvis CT with contrast showed 5 mm nonobstructing right lower pole renal calculus. Otherwise unremarkable lab work unremarkable other than urinary tract infection with hematuria. Patient be given Cipro here and a prescription to go home on. Patient follow-up with her PCP within the next 7 days for further evaluation and treatment. Differential Diagnosis Likely abdominal pain and gastroenteritis; Unlikely acute appendicitis, calculus of kidney, constipation, diverticulitis, endometriosis, pancreatitis or small bowel obstruction Medical Records I reviewed the patient's medical records. Lab Data I reviewed the patient's lab results. 08/28/23 16:44 08/28/23 16:44 Labs/Radiology: Radiology Impressions Abdomen/Pelvis CT 08/28/23 19:32 IMPRESSION: 1. No acute intra-abdominal or pelvic process. 2. 5 mm nonobstructing right lower pole renal calculus. 3. Other nonemergent findings above. COMMENTS: Consistent with the [employer]'s Incidental Findings Committee white paper (J Am Brendan Radiol 2018): Any incidental renal lesion less than 1 cm or classified as too small to characterize, or any incidental cystic renal lesion characterized as simple-appearing, is likely benign. No follow-up imaging is recommended for these lesions per consensus recommendations based on imaging criteria. Laboratory Results WBC 5.01 10^3/uL (3.29-11.43) 08/28/23 16:44 RBC 4.27 10^6/uL (3.85-5.65) 08/28/23 16:44 Hgb 12.70 g/dL (11.27-16.99) 08/28/23 16:44 Hct 40.0 % (36-47) 08/28/23 16:44 MCV 93.7 fl (85-98) 08/28/23 16:44 MCH 29.7 pg (27-33) 08/28/23 16:44 MCHC 31.8 g/dL (30-55) 08/28/23 16:44 RDW 13.8 % (12.1-15.1) 08/28/23 16:44 Plt Count 355 10^3/cmm (157-399) 08/28/23 16:44 MPV 9.8 fL (7.4-10.4) 08/28/23 16:44 Neut % (Auto) 57.9 % 08/28/23 16:44 Lymph % (Auto) 31.1 % 08/28/23 16:44 [place] % (Auto) 9.8 % 08/28/23 16:44 Eos % (Auto) 0.8 % 08/28/23 16:44 Baso % (Auto) 0.2 % 08/28/23 16:44 Neut # (Auto) 2.90 10^3/uL (1.8-7.7) 08/28/23 16:44 Lymph # (Auto) 1.6 10^3/uL (0.8-4.8) 08/28/23 16:44 [place] # (Auto) 0.5 10^3/uL (0.2-0.9) 08/28/23 16:44 Eos # (Auto) 0.0 10^3/uL (0.0-0.8) 08/28/23 16:44 Baso # (Auto) 0.0 10^3/uL (0.0-0.1) 08/28/23 16:44 Nucleated RBC % (auto) 0 % 08/28/23 16:44 Nucleated RBCs # 0.0 /100WBC 08/28/23 16:44 Sodium 140 mmol/L (136-145) 08/28/23 16:44 Potassium 4.1 mmol/L (3.5-5.1) 08/28/23 16:44 Chloride 106 mmol/L (98-107) 08/28/23 16:44 Carbon Dioxide 24 mmol/L (22-29) 08/28/23 16:44 Anion Gap 14.1 (5-19) 08/28/23 16:44 BUN 12 mg/dL (6-20) 08/28/23 16:44 Creatinine 0.8 mg/dL (0.5-0.9) 08/28/23 16:44 GFR Calculation 74.2 mL/min (90-130) L 08/28/23 16:44 Glucose 78 mg/dL (65-115) 08/28/23 16:44 Calculated Osmolality 289 mOsm/kg (285-295) 08/28/23 16:44 Calcium 9.1 mg/dL (8.5-10.5) 08/28/23 16:44 Total Bilirubin 0.2 mg/dL (0.15-1.2) 08/28/23 16:44 AST 32 U/L (0-32) 08/28/23 16:44 ALT 28 U/L (0-33) 08/28/23 16:44 Alkaline Phosphatase 82 U/L (35-105) 08/28/23 16:44 Total Protein 6.5 g/dL (6.6-8.7) L 08/28/23 16:44 Albumin 4.1 g/dL (3.5-5.2) 08/28/23 16:44 Globulin 2.4 g/dL (1.3-4.6) 08/28/23 16:44 Lipase 24 U/L (13-60) 08/28/23 16:44 Urine Color Yellow (Yellow) 08/28/23 17:47 Urine Appearance Clear (CLEAR) 08/28/23 17:47 Urine pH 5 (5-7) 08/28/23 17:47 Ur Specific [place] 1.025 (1.005-1.030) 08/28/23 17:47 Urine Protein Neg (Negative) 08/28/23 17:47 Urine Glucose (UA) Norm (Normal) 08/28/23 17:47 Urine Ketones Negative (Negative) 08/28/23 17:47 Urine Blood 3+ (Negative) H 08/28/23 17:47 Urine Nitrate Negative (Negative) 08/28/23 17:47 Urine Bilirubin 1+ (Negative) H 08/28/23 17:47 Urine Urobilinogen Norm mg/dL (Negative) 08/28/23 17:47 Ur Leukocyte Esterase Trace (Negative) H 08/28/23 17:47 Urine RBC 10-15 /hpf (0-2) H 08/28/23 17:47 Urine WBC 10-15 /hpf (0-5) H 08/28/23 17:47 Ur Squamous Epith Cells 0-4 /hpf (0-5) H 08/28/23 17:47 Calcium Oxalate Crystal 10-15 /hpf H 08/28/23 17:47 Amorphous Sediment Not Reportable 08/28/23 17:47 Urine Bacteria Trace /hpf (NONE) 08/28/23 17:47 Urine Mucus 2+ /hpf 08/28/23 17:47 All radiology interpretation(s) finalized by discharge Discharge Plan Discharge Patient Disposition: Home Clinical Impression: Kidney stone Abdominal pain Qualifiers: Abdominal location: generalized Qualified Code(s): R10.84 - Generalized abdominal pain Diarrhea Qualifiers: Diarrhea type: unspecified type Qualified Code(s): R19.7 - Diarrhea, unspecified Urinary tract infection Qualifiers: Urinary tract infection type: acute cystitis Hematuria presence: with hematuria Qualified Code(s): N30.01 - Acute cystitis with hematuria Condition: Stable Prescriptions: New ciprofloxacin HCl 500 mg tablet 500 mg PO Q12H Qty: 20 0RF No Action allopurinol 100 mg tablet 100 mg PO QPM sumatriptan succinate [Imitrex STATdose Pen] 6 mg/0.5 mL pen injector See Rx Instructions .ROUTE .COMPLEX Rx Instructions: one pen subcutaneously as a single dose as directed prn Lamictal 100 mg tablet 150 mg PO BEDTIME Qty: 45 2RF trazodone 100 mg tablet 100 mg PO BEDTIME PRN (Reason: Sleep) Qty: 60 2RF clonazepam 1 mg tablet 1 mg PO BID PRN (Reason: anxiety) Qty: 60 2RF sertraline [Zoloft] 50 mg tablet 50 mg PO DAILY Qty: 30 1RF ropinirole 1 mg tablet 1 mg PO QAM ropinirole 2 mg tablet 2 mg PO QPM fluticasone propionate 50 mcg/actuation spray,suspension 2 spray INTRANASAL DAILY PRN (Reason: allergies) cetirizine 10 mg tablet 10 mg PO QPM Patient Comments: no longer taking this med furosemide [Lasix] 40 mg tablet 40 mg PO QAM PRN (Reason: Edema) Discharge Orders: Discharge ED (Routine); Ordered 08/28/23 Ordered By: Daniel Bay Referrals: Anh Ag FNP [Primary Care Provider] - 1 week Patient Instructions: Kidney Stones, Urinary Tract Infection in Women (DC), How to Strain Your Urine (ED), Abdominal Pain (ED) Activity Restrictions/Additional Instructions: Your CT scan showed you have a 5 mm kidney stone in the right kidney. Your urine shows positive for infection. Please take all your antibiotics as directed. Please follow-up with your family practice physician within next 7 days for further evaluation and testing. Coding Level of Care Code ED Glass Robot Operator for Carissa Rocha
[2023-08-28] MEDS: ciprofloxacin 500 mg Tablet PO (20:49)
== END 2023-08-28 20:53 | disposition home or self-care (01) ==
PROVIDERS: Emergency Provider Emergency Medicine; PCP Nurse Practitioner Family
DX: N20.0 Calculus of kidney (principal); R10.84 Generalized abdominal pain; R19.7 Diarrhea, unspecified; N30.01 Acute cystitis with hematuria; E78.5 Hyperlipidemia, unspecified; N18.30 Chronic kidney disease, stage 3 unspecified
CPT/HCPCS: 36415; 74177; 80053; 81001; 83690; 85025; 87086; 99285; Q9967

== ENCOUNTER 2023-09-06 14:52 | Outpatient (CLI) | payer MEDICARE, SELFPAY ==
[2023-09-06 15:50] LABS: Uric Acid 5.6 mg/dL (2.4-5.7)
== END 2023-09-06 14:53 | disposition home or self-care (01) ==
LOC: LAB 14:55
PROVIDERS: PCP Nurse Practitioner Family; Visit Provider Orthopaedic Surgery
DX: M79.642 Pain in left hand (principal)
CPT/HCPCS: 36415; 84550

== ENCOUNTER 2023-09-19 15:15 | Outpatient (CLI) | payer MEDICARE, SELFPAY ==
--- NOTE | 2023-09-19 15:20 | MM_ITS ---
WS: [id number] BILATERAL 3D TOMOSYNTHESIS DIGITAL SCREENING MAMMOGRAPHY WITH CAD CLINICAL INFORMATION: SCREEN HISTORY: Screening mammogram. No current complaints. COMPARISON: 2022 TECHNIQUE: Bilateral CC and MLO views. FINDINGS: Scattered fibroglandular densities bilaterally. No suspicious focal mass, asymmetry, calcifications, or architectural distortion. No evidence of malignancy. Stable lucent centered calcification RIGHT br east. IMPRESSION: MM/[place] [id number] BI-RADS: 2-Benign FOLLOW UP: 1 Year Follow-up Recommend return to annual screening mammography.
== END 2023-09-19 15:16 | disposition home or self-care (01) ==
LOC: RAD 15:16
PROVIDERS: PCP Nurse Practitioner Family; Visit Provider Nurse Practitioner Family
DX: Z12.31 Encounter for screening mammogram for malignant neoplasm of breast (principal); R92.323 Mammographic fibroglandular density, bilateral breasts; R92.1 Mammographic calcification found on diagnostic imaging of breast
CPT/HCPCS: 77063; 77067

== ENCOUNTER 2023-09-21 17:44 | Outpatient (CLI) | payer MEDICARE, SELFPAY | END 2023-09-21 17:45 | disposition home or self-care (01) | LOC: LAB 17:46 | PROVIDERS: PCP Nurse Practitioner Family; Visit Provider Registered Nurse | DX: N18.31 Chronic kidney disease, stage 3a (principal) | CPT/HCPCS: 81003; 82131; 82140; 82340; 82436; 82507; 82570; 83735; 83935; 84300 ==

== ENCOUNTER 2024-03-20 12:22 | Outpatient (CLI) | payer MEDICARE, SELFPAY ==
--- NOTE | 2024-03-20 12:26 | USCV_ITS ---
Gabi Campbell Age: 58 Gender: F : 1965 Exam Date: 03/20/2024 12:42 Ordering Phys: Anh Ag OUTSIDE REPAIRER SPECIAL Technologist: KERRI Exam Location: [facility] Indication: HISTORY: PROCEDURES: Right duplex Venous Insufficiency study of the Deep and Superficial systems was carried out according to normal protocol with the patient in supine positon for deep system and dependent position for the superficial system. FINDINGS: All deep veins demonstrated compressibility without evidence of intraluminal thrombus or increased echogenicity. Spectral analysis of Doppler signals demonstrates normal response to compression maneuvers indicating patency without obstruction. Reflux determinations were made with the patient in the dependent position, the weight being on the contralateral leg. No notable reflux was seen at this time. CONCLUSIONS No evidence of DVT in the above-mentioned identifiable veins. No significant reflux were noted in the veins identified above Dr Susan Green MD [facility] (Electronically Signed) Final Date: 22 March 2024 22:08 S
== END 2024-03-20 12:23 | disposition home or self-care (01) ==
PROVIDERS: PCP Nurse Practitioner Family; Visit Provider Nurse Practitioner Family
DX: M79.604 Pain in right leg (principal)
CPT/HCPCS: 93971

== ENCOUNTER 2024-04-16 15:43 | Outpatient (CLI) | payer MEDICARE, SELFPAY ==
[2024-04-16 17:04] LABS: Basophils % 0.4 %; Eosinophils # 0.1 10^3/uL (0.0-0.8); Eosinophils % 2.3 %; Hematocrit 39.6 % (36-47); Lymphocytes # 2.3 10^3/uL (0.8-4.8); Lymphocytes % 40.2 %; Mean Corpuscular HGB Conc 32.3 g/dL (30-55); Mean Corpuscular Hemoglobin 30.1 pg (27-33); Mean Corpuscular Volume 93.2 fl (85-98); Mean Platelet Volume 9.9 fL (7.4-10.4); Monocytes # 0.4 10^3/uL (0.2-0.9); Neutrophils # 2.83 10^3/uL (1.8-7.7); Neutrophils % 49.7 %; Nucleated Red Blood Cells % 0 %; Platelet Count 317 10^3/cmm (157-399); Red Blood Count 4.25 10^6/uL (3.85-5.65); Red Cell Distribution Width 13.2 % (12.1-15.1); White Blood Count 5.69 10^3/uL (3.29-11.43)
[2024-04-16 17:53] LABS: Parathyroid Hormone 54.2 pg/mL (15-65)
[2024-04-16 18:01] LABS: Albumin Level 4.4 g/dL (3.5-5.2); Anion Gap 12.7 (5-19); Blood Urea Nitrogen 24 mg/dL (6-20); Calcium 9.4 mg/dL (8.5-10.5); Carbon Dioxide 29 mmol/L (22-29); Chloride 102 mmol/L (98-107); Glomerular Filtration Rate 64.5 mL/min (90-130); Glucose 81 mg/dL (65-115); Phosphorus 3.2 mg/dL (2.5-4.5); Potassium 3.7 mmol/L (3.5-5.1); Sodium 140 mmol/L (136-145)
[2024-04-16 18:02] LABS: Calcium 9.5 mg/dL (8.5-10.5)
[2024-04-16 18:18] LABS: Creatinine Urine, Random 33 mg/dL (28-217); Microalbum Creatinine Ratio Ur 30 mg/dL (0-20); Microalbumin Random Urine 1 ug/dL (0-20)
== END 2024-04-16 15:44 | disposition home or self-care (01) ==
LOC: LAB 15:45
PROVIDERS: PCP Nurse Practitioner Family; Visit Provider Registered Nurse
DX: N18.31 Chronic kidney disease, stage 3a (principal)
CPT/HCPCS: 80069; 82044; 82310; 83970; 85025

== ENCOUNTER 2024-05-08 09:51 | Emergency (ER) | payer MEDICARE, SELFPAY ==
[2024-05-08 10:03] VITALS: BP 119/73; PULSE 60; RESP 16; TEMP 36.7; O2SAT 99; BMI 25.4
--- NOTE | 2024-05-08 10:28 | CT_ITS ---
WS: [id number] CT ABDOMEN PELVIS TECHNIQUE: Noncontrast CT of the abdomen and pelvis with coronal and sagittal reformatted images. CLINICAL INFORMATION: flank pain COMPARISON: None. DLP: 425.[address] scans at [facility] use at least one of these dose optimization techniques: automated e xposure control; mA and/or kV adjustment per patient size (includes targeted exams where dose is matc hed to clinical indication); or iterative reconstruction. FINDINGS: Cholecystectomy clips. RIGHT double-J ureteral stent in place. Prior cholecystectomy and hysterectomy. Lung bases are well aerated. Slight bibasal atelectasis. No h ydronephrosis. Nonobstructing RIGHT renal parenchymal calculus measuring 5 mm. No visualized RIGHT ur eteral calculi. Adrenal glands are normal. No hydronephrosis in the LEFT kidney. LEFT ureter is decompressed. Pelvic phleboliths. Hepatomegaly. Small esophageal hiatal hernia. Noncontrast pancreas is normal. Tiny fat-c ontaining umbilical hernia. Small amount of free fluid in the pelvis. Mild dilatation of fluid-filled small bowel with a few air-fluid levels. Mild RIGHT and transverse co jose constipation. Few sigmoid diverticuli. No evidence of acute diverticulitis. Prior postoperative c hanges pedicle screw fixation L2-[address]/CT kidney stone [id number] IMPRESSION: 1. RIGHT double-J ureteral stent in place. No hydronephrosis. 2. No visualized RIGHT renal pelvic or ureteral calculi. 3. Nonobstructing RIGHT renal parenchymal calculus measuring 5 mm. 4. No hydronephrosis in the LEFT kidney. 5. Prior cholecystectomy and hysterectomy. 6. Mild dilatation of a few loops of small bowel with air-fluid levels in the mid abdomen likely postoperative adynamic ileus. No evidence of high-grade obst ruction. 7. Mild RIGHT and transverse colon constipation. 8. Small esophageal hiatal hernia.
[2024-05-08 10:55] VITALS: RESP 18
[2024-05-08] MEDS: morphine 4 mg/mL SDV 1 mL IVP (10:55)
[2024-05-08] MEDS: ondansetron 2 mg/ML SDV 2 mL 4 MG IVP (10:55)
[2024-05-08 11:15] LABS: Basophils % 0.4 %; Eosinophils # 0.1 10^3/uL (0.0-0.8); Eosinophils % 1.2 %; Hematocrit 34.6 % (36-47); Lymphocytes # 3.2 10^3/uL (0.8-4.8); Lymphocytes % 46.8 %; Mean Corpuscular HGB Conc 31.5 g/dL (30-55); Mean Corpuscular Hemoglobin 29.6 pg (27-33); Mean Platelet Volume 10.2 fL (7.4-10.4); Monocytes # 0.5 10^3/uL (0.2-0.9); Monocytes % 6.8 %; Neutrophils # 3.01 10^3/uL (1.8-7.7); Neutrophils % 44.5 %; Nucleated Red Blood Cells % 0 %; Platelet Count 258 10^3/cmm (157-399); Red Blood Count 3.68 10^6/uL (3.85-5.65); Red Cell Distribution Width 13.7 % (12.1-15.1); White Blood Count 6.77 10^3/uL (3.29-11.43)
[2024-05-08 11:29] LABS: Alanine Aminotransferase 12 U/L (0-33); Albumin Level 3.9 g/dL (3.5-5.2); Alkaline Phosphatase 72 U/L (35-105); Aspartate Amino Transferase 22 U/L (0-32); Blood Urea Nitrogen 21 mg/dL (6-20); Calcium 8.9 mg/dL (8.5-10.5); Carbon Dioxide 26 mmol/L (22-29); Chloride 105 mmol/L (98-107); Creatinine Clr Calc Pharmacy 58.2874; Globulin 2.6 g/dL (1.3-4.6); Glomerular Filtration Rate 64.5 mL/min (90-130); Glucose 85 mg/dL (65-115); Osmolality Calculated 292 mOsm/kg (285-295); Sodium 140 mmol/L (136-145); Total Bilirubin 0.3 mg/dL (0.15-1.2); Total Protein 6.5 g/dL (6.6-8.7)
--- NOTE | 2024-05-08 11:31 | W.ED.FEMALGU ---
HPI - Female Genitourinary General: Chief complaint: Urogenital-Female Stated complaint: foul ordor, pain (surgery recently) Time Seen by Provider: 05/08/24 10:28 History of Present Illness: 58-year-old female presents emergency room with groin pain foul-smelling urine. She has a known kidney stone she was seen yesterday and had a stent placed they are planning on doing a stone extraction evidently but were not able to because of the size of the stent was placed in the liver. She denies headache fever sweats or chills she has had increased pain urine is discolored but she is on Pyridium. In addition to this she is on hydrocodone for pain. She is not on any oral antibiotics but was given preoperative IV antibiotics yesterday. Procedure was done at [facility] in [place]. Associated symptoms: Deny abdominal pain Related Data Home Medications Medication Instructions Recorded Confirmed allopurinol 100 mg tablet 100 mg PO QPM 10/29/19 05/08/24 sumatriptan succinate 6 mg/0.5 mL See Rx Instructions .Route .COMPLEX 12/02/20 05/08/24 subcutaneous pen injector (Imitrex STATdose Pen) fluticasone propionate 50 2 spray intranasal DAILY PRN 05/17/21 05/08/24 mcg/actuation nasal allergies spray,suspension ropinirole 1 mg tablet 1 mg PO QAM 05/17/21 05/08/24 ropinirole 2 mg tablet 2 mg PO QPM 05/17/21 05/08/24 cetirizine 10 mg tablet 10 mg PO QPM 10/06/21 05/08/24 furosemide 40 mg tablet (Lasix) 40 mg PO QAM PRN Edema 04/13/23 05/08/24 docusate sodium 100 mg capsule 100 mg PO DAILY 05/08/24 05/08/24 hydrocodone 5 mg-acetaminophen 325 1 tab PO Q4H 05/08/24 05/08/24 mg tablet oxybutynin chloride 15 mg 15 mg PO DAILY 05/08/24 05/08/24 tablet,extended release 24 hr phenazopyridine 200 mg tablet 200 mg PO DAILY 05/08/24 05/08/24 phentermine 37.5 mg tablet 37.5 mg PO QAM 05/08/24 05/08/24 tamsulosin 0.4 mg capsule 0.4 mg PO DAILY 05/08/24 05/08/24 trazodone 100 mg tablet 60 mg PO QPM 05/08/24 05/08/24 Previous Rx's Medication Instructions Recorded bupropion HCl 150 mg 24 hr tablet, 150 mg PO QAM #30 tabs 04/26/24 extended release (Wellbutrin XL) clonazepam 1 mg tablet 1 mg PO BID PRN anxiety #60 tabs 04/26/24 lamotrigine 100 mg tablet 100 mg PO BEDTIME #30 tabs 04/26/24 (Lamictal) sertraline 50 mg tablet (Zoloft) 50 mg PO DAILY #30 tabs 04/26/24 ciprofloxacin HCl 250 mg tablet 250 mg PO BID #10 tabs 05/08/24 (Cipro) oxycodone-acetaminophen 5 mg-325 1 tab PO Q6H PRN pain #20 tabs 05/08/24 mg tablet (Percocet) tizanidine 4 mg capsule 4 mg PO Q6H PRN muscle spasticity 05/08/24 #20 caps Allergies Allergy/AdvReac Type Severity Reaction Status Date / Time No Known Allergies Allergy Verified 05/08/24 10:11 Review of Systems Const: Denies: fever(s) or chills Card: Denies: chest pain Resp: Denies: dyspnea GI: Denies: abdominal pain : Reports: flank pain; Denies: dysuria, urinary frequency or urinary urgency Musc: Denies: neck pain or back pain Skin/Breast: Denies: rash PFSH ED PFSH: Medical History Hypoglycemia Troponin level elevated PTSD (post-traumatic stress disorder) Gastric polyp Hyperlipidemia Gout Stage 3 chronic kidney disease Hypothyroidism In past. PTSD (post-traumatic stress disorder) Generalized anxiety disorder Dependent personality disorder Obsessive-compulsive disorder, unspecified Surgical History Hx of esophagogastroduodenoscopy (~2020) Hx of colonoscopy (~2020) History of removal of retained hardware (12/12/12) Right shoulder. Performed by Dr. Hossein Ortiz at [facility] in [place], [place]. History of removal of retained hardware (04/26/11) With open reduction and internal fixation of Rt clavicle. Performed by Dr. Hossein Ortiz at [facility] in [place], [place]. History of open reduction and internal fixation (ORIF) procedure (10/11/10) Right clavicle. Performed by Dr. Monroe at [facility] in [place], [place]. History of prolapse of bladder (~2008) bladder mesh S/P laparoscopic assisted vaginal hysterectomy (LAVH) (01/21/08) With anterior repair. Performed by Dr. Bueno at [facility] in [place], [place] History of suburethral sling procedure (08/29/07) Anterior vaginal repair & transobturator suburethral sling; Dx: Cystocele, BRANDEN. Performed by Dr. Rosenberg at [facility] in [place], [place]. Hx of bilateral breast reduction surgery (~2002) S/P laparoscopic cholecystectomy (~1996) Performed at [facility] in [place], [place] History of tubal ligation (~1996) Hx of ectopic (~1986) Laparoscopic treatment of ectopic History of carpal tunnel surgery Both, Left wrist twice, right wrist once History of axillary surgery (~03/2016) Exploratory left armpit surgery. Performed by Dr. Chen at [facility] in [place], [place]. Family History Brother Hypertension Heart disease Colon cancer Father Hypertension Grandmother Diabetes Maternal Heart disease Maternal Unknown No problems noted. Mother Cancer leukemia, hodgkins Grandfather Cancer lung cancer, maternal Social History Smoking and tobacco/nicotine status: never used tobacco/nicotine Alcohol intake: current Alcohol intake frequency: holidays/special occasions only Substance/Drug Use: never Physical Exam Const: GENERAL APPEARANCE: cooperative ORIENTATION/CONSCIOUSNESS: Yes awake, Yes oriented to person, Yes oriented to place and Yes oriented to time HENMT: COMMON NORMALS: normocephalic, atraumatic and hearing grossly normal bilaterally HEAD & SCALP: normocephalic and atraumatic Resp: COMMON NORMALS: normal respiratory effort, No retractions, No use of accessory muscles and clear to auscultation bilaterally AUSCULTATION: clear to auscultation bilaterally Cardio: COMMON NORMALS: regular rate, regular rhythm and No murmurs present (Cardio) RATE: regular rate RHYTHM: regular rhythm GI: COMMON NORMALS: Soft to palpation and No hepatosplenomegaly present AUSCULTATION: Yes normoactive bowel sounds PALPATION: Yes Soft to palpation, No Tenderness to palpation present (GI), No Guarding due to palpation present (GI) and Yes No hepatosplenomegaly present : BLADDER/KIDNEY EXAM: Yes CVA tenderness Back/Pelvis: GENERAL BACK: Yes CVA tenderness CVA tenderness: bilateral Extremity: COMMON NORMALS: normal to inspection, capillary refill normal, no clubbing, cyanosis or edema, no calf tenderness and no pedal edema Neuro: SENSORIUM/ORIENTATION: Yes oriented to person, Yes oriented to place and Yes oriented to time Skin: COMMON NORMALS: no rashes or lesions noted GENERAL SKIN EXAM: no rashes or lesions noted Course Vital Signs: Vital signs: Vital Signs Temperature 98.0 F 05/08/24 10:03 Pulse Rate 64 05/08/24 14:32 Respiratory Rate 18 05/08/24 10:55 Blood Pressure 121/72 05/08/24 14:32 Pulse Oximetry 99 05/08/24 14:32 Oxygen Delivery Me thod Room Air 05/08/24 10:03 MDM - Female Medical Decision Making CT shows stent in place. Patient does have a mild cystitis. Not septic in appearance no leukocytosis I contacted the urologist to place a stent. Recommends starting oral antibiotics. Patient was given Percocet for pain. Will discharge patient home have her follow-up with urology as soon as she is able next week. If pain becomes uncontrolled return to the emergency room Medical Records I reviewed the patient's medical records. Lab Data I reviewed the patient's lab results. 05/08/24 10:50 05/08/24 10:50 Radiology Impressions Abdomen/Pelvis CT 05/08/24 10:28 IMPRESSION: 1. RIGHT double-J ureteral stent in place. No hydronephrosis. 2. No visualized RIGHT renal pelvic or ureteral calculi. 3. Nonobstructing RIGHT renal parenchymal calculus measuring 5 mm. 4. No hydronephrosis in the LEFT kidney. 5. Prior cholecystectomy and hysterectomy. 6. Mild dilatation of a few loops of small bowel with air-fluid levels in the mid abdomen likely postoperative adynamic ileus. No evidence of high-grade obstruction. 7. Mild RIGHT and transverse colon constipation. 8. Small esophageal hiatal hernia. Laboratory Results WBC 6.77 10^3/uL (3.29-11.43) 05/08/24 10:50 RBC 3.68 10^6/uL (3.85-5.65) L 05/08/24 10:50 Hgb 10.90 g/dL (11.27-16.99) L 05/08/24 10:50 Hct 34.6 % (36-47) L 05/08/24 10:50 MCV 94.0 fl (85-98) 05/08/24 10:50 MCH 29.6 pg (27-33) 05/08/24 10:50 MCHC 31.5 g/dL (30-55) 05/08/24 10:50 RDW 13.7 % (12.1-15.1) 05/08/24 10:50 Plt Count 258 10^3/cmm (157-399) 05/08/24 10:50 MPV 10.2 fL (7.4-10.4) 05/08/24 10:50 Neut % (Auto) 44.5 % 05/08/24 10:50 Lymph % (Auto) 46.8 % 05/08/24 10:50 [place] % (Auto) 6.8 % 05/08/24 10:50 Eos % (Auto) 1.2 % 05/08/24 10:50 Baso % (Auto) 0.4 % 05/08/24 10:50 Neut # (Auto) 3.01 10^3/uL (1.8-7.7) 05/08/24 10:50 Lymph # (Auto) 3.2 10^3/uL (0.8-4.8) 05/08/24 10:50 [place] # (Auto) 0.5 10^3/uL (0.2-0.9) 05/08/24 10:50 Eos # (Auto) 0.1 10^3/uL (0.0-0.8) 05/08/24 10:50 Baso # (Auto) 0.0 10^3/uL (0.0-0.1) 05/08/24 10:50 Nucleated RBC % (auto) 0 % 05/08/24 10:50 Nucleated RBCs # 0.0 /100WBC 05/08/24 10:50 Sodium 140 mmol/L (136-145) 05/08/24 10:50 Potassium 4.0 mmol/L (3.5-5.1) 05/08/24 10:50 Chloride 105 mmol/L (98-107) 05/08/24 10:50 Carbon Dioxide 26 mmol/L (22-29) 05/08/24 10:50 Anion Gap 13.0 (5-19) 05/08/24 10:50 BUN 21 mg/dL (6-20) H 05/08/24 10:50 Creatinine 0.9 mg/dL (0.5-0.9) 05/08/24 10:50 GFR Calculation 64.5 mL/min (90-130) L 05/08/24 10:50 Glucose 85 mg/dL (65-115) 05/08/24 10:50 Calculated Osmolality 292 mOsm/kg (285-295) 05/08/24 10:50 Calcium 8.9 mg/dL (8.5-10.5) 05/08/24 10:50 Total Bilirubin 0.3 mg/dL (0.15-1.2) 05/08/24 10:50 AST 22 U/L (0-32) 05/08/24 10:50 ALT 12 U/L (0-33) 05/08/24 10:50 Alkaline Phosphatase 72 U/L (35-105) 05/08/24 10:50 Total Protein 6.5 g/dL (6.6-8.7) L 05/08/24 10:50 Albumin 3.9 g/dL (3.5-5.2) 05/08/24 10:50 Globulin 2.6 g/dL (1.3-4.6) 05/08/24 10:50 Urine Color Other (Yellow) A 05/08/24 11:21 Urine Appearance Cloudy (CLEAR) A 05/08/24 11:21 Urine pH TNP 05/08/24 11:21 Ur Specific [place] TNP 05/08/24 11:21 Urine Protein TNP 05/08/24 11:21 Urine Glucose (UA) TNP 05/08/24 11:21 Urine Ketones TNP 05/08/24 11:21 Urine Blood TNP 05/08/24 11:21 Urine Nitrate TNP 05/08/24 11:21 Urine Bilirubin TNP 05/08/24 11:21 Urine Urobilinogen TNP 05/08/24 11:21 Ur Leukocyte Esterase TNP 05/08/24 11:21 Urine RBC >100 /hpf (0-2) H 05/08/24 11:21 Urine WBC 5-10 /hpf (0-5) H 05/08/24 11:21 Amorphous Sediment Not Reportable 05/08/24 11:21 Urine Bacteria 1+ /hpf (NONE) H 05/08/24 11:21 Hyaline Casts 0-4 /lpf H 05/08/24 11:21 All radiology interpretation(s) finalized by discharge Discharge Plan Discharge Patient Disposition: Home Clinical Impression: S/P ureteral stent placement, Nephrolithiasis Condition: Stable Prescriptions: New oxycodone-acetaminophen [Percocet] 5-325 mg tablet 1 tab PO Q6H PRN (Reason: pain) Qty: 20 0RF tizanidine 4 mg capsule 4 mg PO Q6H PRN (Reason: muscle spasticity) Qty: 20 0RF Rx Instructions: do not exceed 3 doses per 24 hrs ciprofloxacin HCl [Cipro] 250 mg tablet 250 mg PO BID Qty: 10 0RF No Action allopurinol 100 mg tablet 100 mg PO QPM sumatriptan succinate [Imitrex STATdose Pen] 6 mg/0.5 mL pen injector See Rx Instructions .ROUTE .COMPLEX Rx Instructions: one pen subcutaneously as a single dose as directed prn clonazepam 1 mg tablet 1 mg PO BID PRN (Reason: anxiety) Qty: 60 2RF bupropion HCl [Wellbutrin XL] 150 mg tablet extended release 24 hr 150 mg PO QAM Qty: 30 1RF sertraline [Zoloft] 50 mg tablet 50 mg PO DAILY Qty: 30 2RF Lamictal 100 mg tablet 100 mg PO BEDTIME Qty: 30 2RF ropinirole 1 mg tablet 1 mg PO QAM ropinirole 2 mg tablet 2 mg PO QPM fluticasone propionate 50 mcg/actuation spray,suspension 2 spray INTRANASAL DAILY PRN (Reason: allergies) cetirizine 10 mg tablet 10 mg PO QPM Patient Comments: no longer taking this med furosemide [Lasix] 40 mg tablet 40 mg PO QAM PRN (Reason: Edema) oxybutynin chloride 15 mg tablet extended release 24hr 15 mg PO DAILY hydrocodone-acetaminophen 5-325 mg tablet 1 tab PO Q4H phenazopyridine 200 mg tablet 200 mg PO DAILY phentermine 37.5 mg tablet 37.5 mg PO QAM tamsulosin 0.4 mg capsule 0.4 mg PO DAILY trazodone 100 mg tablet 60 mg PO QPM docusate sodium 100 mg capsule 100 mg PO DAILY Discharge Orders: Discharge ED (Routine); Ordered 05/08/24 Ordered By: Jaime Crystal Referrals: Anh Ag FNP [Primary Care Provider] - Discharge Diet: Usual diet Discharge Activity: Resume usual activity Patient Instructions: Opioid Safety, Pain Management Activity Restrictions/Additional Instructions: Thank you for choosing [facility] for your healthcare needs today. It is very important that you follow up as instructed or that you return to the Emergency Department should you have concerns or if your condition changes or worsens in any way. You were seen in the emergency room with complaint of pain after the stent placement. It appears the majority her pain is coming from the stent itself. The discoloration of her urine is likely from Pyridium. There is a fair amount of blood in your urine and only a few white blood cells. I discussed with your urologist we will start you on a 5-day course of antibiotics until the culture returns. Culture will confirm whether or not there actually is an infection present. We also increased her pain medication to Percocet 1 every 6 hours as needed and also gave you a muscle relaxer tizanidine 4 mg 1 every 6 hours as needed. He should follow-up with the urologist at [facility] in [place]. Coding Level of Care Code ED Soil Technologist for Carissa Rocha
[2024-05-08 12:26] LABS: Add Urine Microscopic? YES; Bacteria Urine 1+ /hpf; Hyaline Casts Urine 0-4 /lpf; RBC Urine >100 /hpf (0-2); UA Manual Slide Review YES; UA Slide Review UA Slide Review Perf; Urine Appearance Cloudy (CLEAR); Urine Color Other (Yellow)
[2024-05-08 12:27] LABS: Add Urine Culture? Yes
[2024-05-08] MEDS: cefTRIAXone 1,000 mg SDV 2000 MG IVP (14:23)
[2024-05-08 14:32] VITALS: BP 121/72; PULSE 64; O2SAT 99
== END 2024-05-08 14:34 | disposition home or self-care (01) ==
PROVIDERS: Emergency Provider Family Medicine; PCP Nurse Practitioner Family
DX: Z98.890 Other specified postprocedural states (principal); N20.0 Calculus of kidney; Z87.442 Personal history of urinary calculi; E78.5 Hyperlipidemia, unspecified; N18.30 Chronic kidney disease, stage 3 unspecified
CPT/HCPCS: 36415; 74176; 80053; 81001; 85025; 87040; 87086; 96374; 96375; 99285; J0696; J2270; J2405

== ENCOUNTER 2024-05-21 12:56 | Outpatient (CLI) | payer MEDICARE, SELFPAY ==
--- NOTE | 2024-05-21 13:04 | XR_ITS ---
WS: [id number] XR hand RT min 3V* [id number] REASON FOR EXAM: R HAND PAIN FINDINGS: No fracture or focal bone lesion. No periosteal reaction or bone erosion. Minimal narrowing in the DIP joints with minimal subchondral sclerosis and osteophytosis. Remainder of the joint spaces are intact and well preserved. XR/XR hand RT min 3V* [id number] IMPRESSION: Minimal osteoarthritis as above.
--- NOTE | 2024-05-21 13:19 | XR_ITS ---
WS: [id number] XR hand LT min 3V* [id number] REASON FOR EXAM: left hand pain FINDINGS: No fracture or focal bone lesion. No periosteal reaction or bone erosion. Minimal narrowing with minimal subchondral sclerosis and osteophytosis in the DIP joints of the finge rs and thumbs. Remaining joint spaces of the hand are intact and well preserved. XR/XR hand LT min 3V* [id number] IMPRESSION: Minimal osteoarthritis as above.
== END 2024-05-21 12:57 | disposition home or self-care (01) ==
PROVIDERS: PCP Nurse Practitioner Family; Visit Provider Nurse Practitioner Family
DX: M18.0 Bilateral primary osteoarthritis of first carpometacarpal joints (principal); M25.749 Osteophyte, unspecified hand
CPT/HCPCS: 73130

== ENCOUNTER 2024-05-23 15:01 | Emergency (ER) | payer MEDICARE, SELFPAY ==
--- NOTE | 2024-05-23 15:04 | ECG_ITS ---
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 Measurements Intervals [place] Rate: 66 P: 45 MO: 146 QRS: 65 QRSD: 79 T: 39 QT: 395 QTc: 414 Interpretive Statements SINUS RHYTHM POSSIBLE ANTERIOR MYOCARDIAL INFARCTION , OF INDETERMINATE AGE [30 ms Q WAVE IN V3/V4, OR R < 0.2 mV IN V4] Compared to ECG 04/14/2023 00:36:42 Myocardial infarct finding now present Electronically Signed On 05-23-2024 17:57:10 FACILITY SPECIALIST by Chang Eli M.D. [email or web address]
[2024-05-23 15:30] VITALS: BP 100/64; PULSE 71; TEMP 36.7; O2SAT 98; BMI 27.0
[2024-05-23 15:31] LABS: Basophils % 0.6 %; Eosinophils # 0.1 10^3/uL (0.0-0.8); Eosinophils % 1.8 %; Hematocrit 38.4 % (36-47); Lymphocytes # 2.4 10^3/uL (0.8-4.8); Lymphocytes % 44.6 %; Mean Corpuscular HGB Conc 31.5 g/dL (30-55); Mean Corpuscular Hemoglobin 29.5 pg (27-33); Mean Corpuscular Volume 93.7 fl (85-98); Mean Platelet Volume 9.5 fL (7.4-10.4); Monocytes # 0.4 10^3/uL (0.2-0.9); Monocytes % 7.6 %; Neutrophils # 2.46 10^3/uL (1.8-7.7); Neutrophils % 45.2 %; Nucleated Red Blood Cells % 0 %; Platelet Count 336 10^3/cmm (157-399); Red Cell Distribution Width 13.5 % (12.1-15.1); White Blood Count 5.43 10^3/uL (3.29-11.43)
[2024-05-23 15:50] LABS: Alanine Aminotransferase 17 U/L (0-33); Albumin Level 4.6 g/dL (3.5-5.2); Alkaline Phosphatase 90 U/L (35-105); Anion Gap 12.9 (5-19); Aspartate Amino Transferase 25 U/L (0-32); Blood Urea Nitrogen 21 mg/dL (6-20); Calcium 9.9 mg/dL (8.5-10.5); Carbon Dioxide 28 mmol/L (22-29); Chloride 101 mmol/L (98-107); Creatinine Clr Calc Pharmacy 59.4728; Globulin 3.1 g/dL (1.3-4.6); Glomerular Filtration Rate 64.5 mL/min (90-130); Glucose 87 mg/dL (65-115); Osmolality Calculated 288 mOsm/kg (285-295); Potassium 3.9 mmol/L (3.5-5.1); Sodium 138 mmol/L (136-145); Total Bilirubin 0.3 mg/dL (0.15-1.2); Total Protein 7.7 g/dL (6.6-8.7)
--- NOTE | 2024-05-23 16:01 | W.ED.RECABL ---
HPI - Recheck/Abnormal Lab/Rx General: Chief Complaint: Recheck/Abnormal Lab/Rx Stated Complaint: potassium level high(reff doc jani ag) Time Seen by Provider: 05/23/24 15:48 Source: patient Mode of arrival: ambulatory Limitations: no limitations History of Present Illness: 58-year-old female is here states that she had had labs drawn 2 days ago and her PCP called her and told her to come to the ER because she had hyperkalemia she states that she is on Lasix and had to take it over the last 7 days that checked her labs 2 days ago she states that she feels fine she has no complaints no pain. Related Data Home Medications Medication Instructions Recorded Confirmed allopurinol 100 mg tablet 100 mg PO QPM 10/29/19 05/08/24 sumatriptan succinate 6 mg/0.5 mL See Rx Instructions .Route .COMPLEX 12/02/20 05/08/24 subcutaneous pen injector (Imitrex STATdose Pen) fluticasone propionate 50 2 spray intranasal DAILY PRN 05/17/21 05/08/24 mcg/actuation nasal allergies spray,suspension ropinirole 1 mg tablet 1 mg PO QAM 05/17/21 05/08/24 ropinirole 2 mg tablet 2 mg PO QPM 05/17/21 05/08/24 cetirizine 10 mg tablet 10 mg PO QPM 10/06/21 05/08/24 furosemide 40 mg tablet (Lasix) 40 mg PO QAM PRN Edema 04/13/23 05/08/24 docusate sodium 100 mg capsule 100 mg PO DAILY 05/08/24 05/08/24 hydrocodone 5 mg-acetaminophen 325 1 tab PO Q4H 05/08/24 05/08/24 mg tablet oxybutynin chloride 15 mg 15 mg PO DAILY 05/08/24 05/08/24 tablet,extended release 24 hr phenazopyridine 200 mg tablet 200 mg PO DAILY 05/08/24 05/08/24 phentermine 37.5 mg tablet 37.5 mg PO QAM 05/08/24 05/08/24 tamsulosin 0.4 mg capsule 0.4 mg PO DAILY 05/08/24 05/08/24 trazodone 100 mg tablet 60 mg PO QPM 05/08/24 05/08/24 Previous Rx's Medication Instructions Recorded bupropion HCl 150 mg 24 hr tablet, 150 mg PO QAM #30 tabs 04/26/24 extended release (Wellbutrin XL) clonazepam 1 mg tablet 1 mg PO BID PRN anxiety #60 tabs 04/26/24 lamotrigine 100 mg tablet 100 mg PO BEDTIME #30 tabs 04/26/24 (Lamictal) sertraline 50 mg tablet (Zoloft) 50 mg PO DAILY #30 tabs 04/26/24 ciprofloxacin HCl 250 mg tablet 250 mg PO BID #10 tabs 05/08/24 (Cipro) oxycodone-acetaminophen 5 mg-325 1 tab PO Q6H PRN pain #20 tabs 05/08/24 mg tablet (Percocet) tizanidine 4 mg capsule 4 mg PO Q6H PRN muscle spasticity 05/08/24 #20 caps Allergies Allergy/AdvReac Type Severity Reaction Status Date / Time No Known Allergies Allergy Verified 05/23/24 15:43 Review of Systems Const: Denies: fever(s), chills, body aches or change in appetite ENMT: Denies: throat pain or dental pain Card: Denies: chest pain Resp: Denies: dyspnea GI: Denies: abdominal pain, nausea, vomiting or diarrhea Musc: Denies: neck pain or back pain Skin/Breast: Denies: rash Neuro: Denies: headache(s) PFSH ED PFSH: Medical History Hypoglycemia Troponin level elevated PTSD (post-traumatic stress disorder) Gastric polyp Hyperlipidemia Gout Stage 3 chronic kidney disease Hypothyroidism In past. PTSD (post-traumatic stress disorder) Generalized anxiety disorder Dependent personality disorder Obsessive-compulsive disorder, unspecified Surgical History Hx of esophagogastroduodenoscopy (~2020) Hx of colonoscopy (~2020) History of removal of retained hardware (12/12/12) Right shoulder. Performed by Dr. Hossein Ortiz at [facility] [place], [place]. History of removal of retained hardware (04/26/11) With open reduction and internal fixation of Rt clavicle. Performed by Dr. Hossein Ortiz at [facility] [place]. History of open reduction and internal fixation (ORIF) procedure (10/11/10) Right clavicle. Performed by Dr. Monroe at [facility] in [place], [place]. History of prolapse of bladder (~2008) bladder mesh S/P laparoscopic assisted vaginal hysterectomy (LAVH) (01/21/08) With anterior repair. Performed by Dr. Bueno at [facility] in [place], [place] History of suburethral sling procedure (08/29/07) Anterior vaginal repair & transobturator suburethral sling; Dx: Cystocele, BRANDEN. Performed by Dr. Rosenberg at [facility] in [place], [place]. Hx of bilateral breast reduction surgery (~2002) S/P laparoscopic cholecystectomy (~1996) Performed at [facility] in [place], [place] History of tubal ligation (~1996) Hx of ectopic (~1986) Laparoscopic treatment of ectopic History of carpal tunnel surgery Both, Left wrist twice, right wrist once History of axillary surgery (~03/2016) Exploratory left armpit surgery. Performed by Dr. Chen at [facility] in [place], [place]. Family History Brother Hypertension Heart disease Colon cancer Father Hypertension Grandmother Diabetes Maternal Heart disease Maternal Unknown No problems noted. Mother Cancer leukemia, hodgkins Grandfather Cancer lung cancer, maternal Social History Smoking and tobacco/nicotine status: never used tobacco/nicotine Alcohol intake: current Alcohol intake frequency: holidays/special occasions only Substance/Drug Use: never Physical Exam Const: COMMON NORMALS: no acute distress, patient oriented x3 and healthy appearing HENMT: COMMON NORMALS: normocephalic and atraumatic HEAD & SCALP: normocephalic and atraumatic Eye: COMMON NORMALS: conjunctivae normal CONJUNCTIVA: Yes conjunctivae normal Neck/C-Spine: COMMON NORMALS: full ROM and supple Chest: COMMONS NORMALS: normal inspection of the chest Resp: COMMON NORMALS: normal respiratory effort Cardio: COMMON NORMALS: regular rate, regular rhythm and No murmurs present (Cardio) RATE: regular rate RHYTHM: regular rhythm Extremity: COMMON NORMALS: normal to inspection and full ROM Neuro: COMMON NORMALS: patient oriented x3, moves all extremities and no focal motor deficits Psych: COMMON NORMALS: mental status grossly normal, Normal thought process present and cooperative THOUGHT PROCESS: Normal thought process present Skin: COMMON NORMALS: no rashes or lesions noted and no wounds GENERAL SKIN EXAM: no rashes or lesions noted Course Vital Signs: Vital signs: Vital Signs Temperature 98.0 F 05/23/24 15:30 Pulse Rate 71 05/23/24 15:30 Blood Pressure 100/64 05/23/24 15:30 Pulse Oximetry 98 05/23/24 15:30 Oxygen Delivery Me thod Room Air 05/23/24 15:30 MDM - Recheck/Abnormal Lab/Rx Medical Decision Making Patient presents here to have her labs checked she did have labs drawn 2 days ago showed hyperkalemia is likely hemolyzed specimen and a falsely elevated potassium her potassium here is normal she is well-appearing here she stable for discharge. Medical Records I reviewed the patient's medical records. Lab Data I reviewed the patient's lab results. 05/23/24 15:24 05/23/24 15:24 Laboratory Results WBC 5.43 10^3/uL (3.29-11.43) 05/23/24 15:24 RBC 4.10 10^6/uL (3.85-5.65) 05/23/24 15:24 Hgb 12.10 g/dL (11.27-16.99) 05/23/24 15:24 Hct 38.4 % (36-47) 05/23/24 15:24 MCV 93.7 fl (85-98) 05/23/24 15:24 MCH 29.5 pg (27-33) 05/23/24 15:24 MCHC 31.5 g/dL (30-55) 05/23/24 15:24 RDW 13.5 % (12.1-15.1) 05/23/24 15:24 Plt Count 336 10^3/cmm (157-399) 05/23/24 15: MPV 9.5 fL (7.4-10.4) 05/23/24 15:24 Neut % (Auto) 45.2 % 05/23/24 15:24 Lymph % (Auto) 44.6 % 05/23/24 15:24 [place] % (Auto) 7.6 % 05/23/24 15:24 Eos % (Auto) 1.8 % 05/23/24 15:24 Baso % (Auto) 0.6 % 05/23/24 15:24 Neut # (Auto) 2.46 10^3/uL (1.8-7.7) 05/23/24 15:24 Lymph # (Auto) 2.4 10^3/uL (0.8-4.8) 05/23/24 15:24 [place] # (Auto) 0.4 10^3/uL (0.2-0.9) 05/23/24 15:24 Eos # (Auto) 0.1 10^3/uL (0.0-0.8) 05/23/24 15:24 Baso # (Auto) 0.0 10^3/uL (0.0-0.1) 05/23/24 15:24 Nucleated RBC % (auto) 0 % 05/23/24 15:24 Nucleated RBCs # 0.0 /100WBC 05/23/24 15:24 Sodium 138 mmol/L (136-145) 05/23/24 15:24 Potassium 3.9 mmol/L (3.5-5.1) 05/23/24 15:24 Chloride 101 mmol/L (98-107) 05/23/24 15:24 Carbon Dioxide 28 mmol/L (22-29) 05/23/24 15:24 Anion Gap 12.9 (5-19) 05/23/24 15:24 BUN 21 mg/dL (6-20) H 05/23/24 15:24 Creatinine 0.9 mg/dL (0.5-0.9) 05/23/24 15:24 GFR Calculation 64.5 mL/min (90-130) L 05/23/24 15:24 Glucose 87 mg/dL (65-115) 05/23/24 15:24 Calculated Osmolality 288 mOsm/kg (285-295) 05/23/24 15:24 Calcium 9.9 mg/dL (8.5-10.5) 05/23/24 15:24 Total Bilirubin 0.3 mg/dL (0.15-1.2) 05/23/24 15:24 AST 25 U/L (0-32) 05/23/24 15:24 ALT 17 U/L (0-33) 05/23/24 15:24 Alkaline Phosphatase 90 U/L (35-105) 05/23/24 15:24 Total Protein 7.7 g/dL (6.6-8.7) 05/23/24 15:24 Albumin 4.6 g/dL (3.5-5.2) 05/23/24 15:24 Globulin 3.1 g/dL (1.3-4.6) 05/23/24 15:24 No radiology studies performed this visit Discharge Plan Discharge Patient Disposition: Home Clinical Impression: Adult wellness visit Condition: Stable Prescriptions: No Action allopurinol 100 mg tablet 100 mg PO QPM sumatriptan succinate [Imitrex STATdose Pen] 6 mg/0.5 mL pen injector See Rx Instructions .ROUTE .COMPLEX Rx Instructions: one pen subcutaneously as a single dose as directed prn clonazepam 1 mg tablet 1 mg PO BID PRN (Reason: anxiety) Qty: 60 2RF bupropion HCl [Wellbutrin XL] 150 mg tablet extended release 24 hr 150 mg PO QAM Qty: 30 1RF sertraline [Zoloft] 50 mg tablet 50 mg PO DAILY Qty: 30 2RF Lamictal 100 mg tablet 100 mg PO BEDTIME Qty: 30 2RF ropinirole 1 mg tablet 1 mg PO QAM ropinirole 2 mg tablet 2 mg PO QPM fluticasone propionate 50 mcg/actuation spray,suspension 2 spray INTRANASAL DAILY PRN (Reason: allergies) cetirizine 10 mg tablet 10 mg PO QPM Patient Comments: no longer taking this med furosemide [Lasix] 40 mg tablet 40 mg PO QAM PRN (Reason: Edema) oxybutynin chloride 15 mg tablet extended release 24hr 15 mg PO DAILY hydrocodone-acetaminophen 5-325 mg tablet 1 tab PO Q4H phenazopyridine 200 mg tablet 200 mg PO DAILY phentermine 37.5 mg tablet 37.5 mg PO QAM tamsulosin 0.4 mg capsule 0.4 mg PO DAILY trazodone 100 mg tablet 60 mg PO QPM docusate sodium 100 mg capsule 100 mg PO DAILY oxycodone-acetaminophen [Percocet] 5-325 mg tablet 1 tab PO Q6H PRN (Reason: pain) Qty: 20 0RF tizanidine 4 mg capsule 4 mg PO Q6H PRN (Reason: muscle spasticity) Qty: 20 0RF Rx Instructions: do not exceed 3 doses per 24 hrs ciprofloxacin HCl [Cipro] 250 mg tablet 250 mg PO BID Qty: 10 0RF Discharge Orders: Discharge ED (Routine); Ordered 05/23/24 Ordered By: Guillermina Campos Referrals: Anh Ag FNP [Primary Care Provider] - 4-7 days Discharge Diet: Advance as tolerated Discharge Activity: Resume usual activity Patient Instructions: Furosemide (By mouth) (Lasix) Coding Level of Care Code ED Harp Action Assembler for Carissa Rocha
[2024-05-23 16:10] VITALS: BP 102/68; PULSE 68; O2SAT 99
== END 2024-05-23 16:11 | disposition home or self-care (01) ==
PROVIDERS: Emergency Provider Emergency Medicine; PCP Nurse Practitioner Family
DX: Z00.00 Encounter for general adult medical examination without abnormal findings (principal); E78.5 Hyperlipidemia, unspecified; N18.30 Chronic kidney disease, stage 3 unspecified
CPT/HCPCS: 36415; 80053; 85025; 93005; 99284

== ENCOUNTER 2024-10-04 09:36 | Outpatient (CLI) | payer MEDICARE, SELFPAY ==
--- NOTE | 2024-10-04 09:39 | MM_ITS ---
WS: [id number] BILATERAL SCREENING DIGITAL TOMOSYNTHESIS MAMMOGRAM WITH CAD HISTORY: SCREEN COMPARISON: 09/19/2023, 07/05/2022, 04/27/2017 Bilateral CC and MLO views with tomosynthesis and synthetic mammography submitted. Computer aided detection analyzed. Breast composition: The breasts are almost entirely fatty. No suspicious masses, microcalcifications or architectural distortion. Long-term stability of a lobulated mass measuring 8 x 3 x 7 mm in the upper outer quadrant LEFT breast. This is probably a small cluster of lymph nodes. Benign calcification 6:00 RIGHT breast. MM/MM scr tomosynthesis [id number] IMPRESSION: BI-RADS: 2 - Benign. FOLLOW UP: 1 Year Follow-up
== END 2024-10-04 09:37 | disposition home or self-care (01) ==
PROVIDERS: PCP Nurse Practitioner Family; Visit Provider Nurse Practitioner Family
DX: Z12.31 Encounter for screening mammogram for malignant neoplasm of breast (principal); R92.313 Mammographic fatty tissue density, bilateral breasts; N63.21 Unspecified lump in the left breast, upper outer quadrant; R92.1 Mammographic calcification found on diagnostic imaging of breast
CPT/HCPCS: 77063; 77067

== ENCOUNTER 2024-12-13 12:07 | Outpatient (CLI) | payer MEDICARE, SELFPAY ==
--- NOTE | 2024-12-13 12:19 | XR_ITS ---
WS: [id number] Exam: XR lumbar spine 2-3V* [id number] Date/Time of Exam: 12/13/2024 12:29 PM Reason For Exam: ARTHRODESIS STATUS Comparison 04/11/2023. There is posterior fusion of the spine at the L2-3 level with pedicle screws and posterior rods. The fusion is in good alignment. No hardware complication. No fracture identified. Facet arthropathy from L3-S1. Old low-grade compression deformity of the upper plate of L4 stable. Degeneration of the L2-3 disc. XR/XR lumbar spine 2-3V* [id number] IMPRESSION: 1. Stable appearing posterior fusion at L2-3 as noted above. 2. Degenerative changes. Additional chronic findings.
== END 2024-12-13 12:08 | disposition home or self-care (01) ==
PROVIDERS: PCP Nurse Practitioner Family; Visit Provider Neurological Surgery
DX: Z98.1 Arthrodesis status (principal); M47.816 Spondylosis without myelopathy or radiculopathy, lumbar region; M51.360 Other intervertebral disc degeneration, lumbar region with discogenic back pain only
CPT/HCPCS: 72100

== ENCOUNTER 2025-03-31 16:41 | Emergency (ER) | payer MEDICARE, SELFPAY ==
[2025-03-31 16:46] VITALS: BP 97/62; PULSE 67; RESP 14; TEMP 36.3; O2SAT 100
--- OUTSIDE RECORDS SUMMARY | 2025-03-31 16:49 | XMS_ITS | Encounter Summary ---
Author Organization [facility] Address [address] [place] [address] Phone Care Team Providers Care Tire Builder Name Role Phone Anh Ag Primary Care Provider [phone] Reason for Visit * Reason Comments New Med Request Encounter Details Date Type Department Care Team (Late st Contact Info) Description 06/05/2023 Refill [facility] [address] [place] [address] Madiha Irizarry NP [address] [place] [address] Stage 3a chronic kidney disease (HCC) Social History Tobacco Use Types Packs/Day Years Used Date Smoking Tobacco: Never Smokeless Tobacco: Never Alcohol Use Standard Drinks/Week Comments Not Currently 0 (1 standard drink = 0.6 oz pur e alcohol) Comments Unknown Sex and Gender Information Value Date Recorded Sex Assigned at Female 10/30/2019 2:05 AM EDT Legal Sex Female 12:47 PM EST Gender Identity Female 10/30/2019 2:05 AM EDT Sexual Orientation Straight 10/30/2019 2: 05 AM EDT documented as of this encounter Plan of Treatment Upcoming Encounters Date Type Department Care Team (Late st Contact Info) Description 04/22/2025 10:20 AM TANK SETTER Office Visit [facility] [address] [place] [address] Aicha Ortiz MD [address] [place] [address] documented as of this encounter Visit Diagnoses Diagnosis Stage 3a chronic kidney disease (HCC) documented in this encounter Care Teams Tire Builder Relationship Specialty Start Date End Date Anh Ag FNP [address] [place] [address] PCP - General Nurse Practitioner 10/02/23 documented as of this encounter
--- OUTSIDE RECORDS SUMMARY | 2025-03-31 16:49 | XMS_ITS | Patient Health Record ---
Author Organization [facility] Address [address] [place] [address] Care Team Providers Care Project Scientist Name Role Phone [facility] Primary Care Provider Unavailable Grey Willingham Unavailable [phone] Anh Madison Unavailable Unavailable Allergies Allergen (clinical drug ingredient) Drug/Non Drug Allergy documented on EMR Reaction Allergy Type Onset Date Status ciprofloxacin Cipro Unknown Drug Allergy 06/28/2007 Ac tive Reason For Referral No Information Medications Medication SIG (Take, Route, Frequency, Duration) Notes Start Date End Date Status Imitrex 50 MG Tablet 1 tab(s) po prn for migraine, may repeat dose every 2 hr, max 200mg/day Oral; Duration: 30 Imitrex 50mg Tablet 1 tab(s) po prn for migraine, may repeat dose every 2 hr, max 200mg/day #1 (One) 9 tablet blister pack 08/17/2007 Active Effexor XR 150 MG Capsule Extended Release 24 Hour Take 1 capsule(s) by mouth daily Oral; Duration: 30 Effexor XR 150mg Capsules, Extended Release Take 1 capsule(s) by mouth daily #30 (Thirty) capsule(s) 01/28/2008 Active Medrol 4 MG Tablet Therapy Pack as directed Orally 08/29/2023 Active Social History Tobacco Use: Social History Observation Description Date Details (start date - stop date) Never Smoker NA - NA Social History Drugs/Alcohol: Social Info Question Answer Notes Alcohol Screen (Audit-C) Did you have a drink containing alcohol in the past year? No Points 0 Interpretation Negative Drugs Have you used drugs other than those for medical reasons in the past 12 months? No Tobacco Use: Social Info Question Answer Notes xTobacco Use/Smoking Are you a nonsmoker Problems Problem Type SNOMED Code ICD Code Onset Dates Problem Status W/U Status Risk Notes Problem Cervical spondylosis (536586466) Cervical spondylosis (M47.812) Active confirmed Problem Arthropathy of cervical spine facet joint (disorder) (517082350) Facet arthropathy, cervical (M47.812) Active confirmed Problem Prolapsed cervical intervertebral disc (426620014) Cervical disc herniation (M50.20) Active confirmed Problem Generalized anxiety disorder (13358749) Anxiety, generalized (300.02) 01/28/20 08 Active confirmed [id number]- Problem Depression (100302128) Depression (311) 02/18/20 06 Active confirmed [id number]- Problem Dizziness (789752710) Dizziness (780.4) 01/28/20 08 Active confirmed [id number] 911- Problem Depressive disorder (09239019) Depressive disorder not elsewhere classified (311) 06/14/20 07 Active confirmed [id number] 911- Problem Migraine with aura (6757693) Classic migraine (346.00) 04/05/20 07 Active confirmed [id number] 911- Problem Dysmenorrhea (497092647) Dysmenorrhea (625.3) 06/14/20 07 Problem resolved confirmed [id number] 911- Problem Female stress incontinence (30691902) Female stress incontinence (625.6) 04/05/20 07 Problem resolved confirmed [id number] 911- Problem Cough (08512894) Cough (786.2) 06/06/20 03 Problem resolved confirmed [id number] 911- Problem Gynecological examination normal (117970090345823) Routine gynecological examination (V72.31) 02/18/20 06 Problem resolved confirmed [id number] 911- Problem Rash (231328651) Rash (782.1) 06/28/19 08 Problem resolved confirmed [id number] 911- Problem Trichomonal vulvovaginitis (37025498) Vaginitis due to Trichomonas (131.01) 09/08/19 04 Problem resolved confirmed [id number] 911- Problem Panic attack (426597022) Panic attack (300.01) 06/07/20 04 Problem resolved confirmed [id number] 911- Problem Obsessive-compuls isiah disorder (444913393) Obsessive-compul sive disorder (300.3) 06/06/20 03 Problem resolved confirmed [id number] 911- Problem Generalized abdominal pain (847643910) Generalized abdominal pain (789.07) 06/14/20 07 Problem resolved confirmed [id number] 911- Problem Hematochezia (452069930) Hematochezia (578.1) 09/08/19 04 Problem resolved confirmed [id number] 911- Problem Obesity (115425760) Overweight and obesity (278.00) 02/16/20 07 Problem resolved confirmed [id number] 911- Problem Pain in pelvis (26072599) Pelvic pain (789.07) 01/14/20 08 Problem resolved confirmed [id number] 911- Problem Well female adult (266741918) Well woman exam (V72.3) 08/22/19 04 Problem resolved confirmed [id number] 911- Problem Migraine with aura (2663096) Classic migraine, not noted as intractable (346.00) 06/06/20 03 Problem resolved confirmed [id number] 911- Plan Of Treatment Pending Test Test Name Order Date XR Outside CD 08/11/2022 zzzMRI Outside CD 08/18/2022 Insurance Providers Payer Name Payer Address Payer Phone Subscriber Number Group Number Insured Name Patient Relationship to Insured Coverage Start Date Coverage End Date [employer] - Out of Network [address] [address] [place] [phone] [id number] Gabi Campbell Self - patient is the insured Medical (General) History Medical History History ICD Code Chicken Pox Pneumonia Bladder Infections Migraine Back Trouble LBP Asthma Bronchitis Stroke Surgical History Surgery Date(Month/Year) Breast Reduction 2002 Cholecystectomy Exploratory LaparotomyBilateral Tubal Ligationbreast reduction; Carpal Tunnel x 2 2005 Gall Bladder Removal Tubal Hysterectomy 01/24 rt clavicle x 3 2011-05 Elbow and Wrist 10/2020 Hospitalization History Reason Date(Month/Year) Pleuracy 2019 TIA 05/09 Migraines Pneumonia 2013
--- OUTSIDE RECORDS SUMMARY | 2025-03-31 16:49 | XMS_ITS | Encounter Summary ---
Author Organization [facility], [facility] Address [address] [place] [address] Phone Care Team Providers Care Dry Primer Powder Blender Name Role Phone Anh Ag Primary Care Provider [phone] Reason for Visit * Reason Comments Med Refill Encounter Details Date Type Department Care Team (Late st Contact Info) Description 03/30/2022 Refill [facility] [address] [place] [address] Madiha Irizarry NP [address] [place] [address] Stage 3a chronic kidney disease [...] st Contact Info) Description 04/22/2025 10:20 AM INSPECTOR COLD WORKING Office Visit [facility] [address] [place] [address] Aicha Ortiz MD [address] [place] [address] documented as of this encounter Visit Diagnoses Diagnosis Stage 3a chronic kidney disease (HCC) documented in this encounter Care Teams Dry Primer Powder Blender Relationship Specialty Start Date End Date Anh Ag FNP [address] [place] [address] PCP - General Nurse Practitioner 10/02/23 documented as of this encounter
--- OUTSIDE RECORDS SUMMARY | 2025-03-31 16:49 | XMS_ITS | Encounter Summary ---
Author Organization [facility], [facility] Address [address] [place] [address] Phone Care Team Providers Care Stull Installer Name Role Phone Anh Ag PRIMITIVO Primary Care Provider Encounter Details Date Type Department Care Team (Late st Contact Info) Description 2019 Orders Only [facility], [facility] [place] [address] Jeyson Bishop MD [address] [place] [address] Chronic kidney disease stage 3 (HCC) Social History Tobacco Use Types Packs/Day [...] Orientation Straight 10/30/2019 2: 05 AM EDT COVID-19 Exposure Response Date Recorded In the last month, have you been in contact with someone who was confirmed or suspected to have Coronavirus / COVID-19? No / Unsure 10/30/2019 1:39 AM EDT documented as of this encounter Plan of Treatment Upcoming Encounters Date Type Department Care Team (Late st Contact Info) Description 04/22/2025 10:20 AM FASHION PATTERNMAKER Office Visit [facility] [address] [place] [address] Aicha Ortiz MD [address] [facility] [address] [place] [address] documented as of this encounter Procedures Procedure Name Priority Date/Time Associated Diagnosis Comments URINE ALBUMIN / CREATININE RATIO Routine 10/21/2019 11:32 AM CDT Chronic kidney disease stage 3 (HCC) RENAL FUNCTION PANEL Routine 10/21/2019 11:32 AM CDT Chronic kidney disease stage 3 (HCC) documented in this encounter Results * Urine albumin / creatinine ratio (10/21/2019 11:32 AM CDT) Albumin, Urine 84 mg/dL PRINT /EXTERNA L (NON-INTERFAC ED LABS) Microalbumin 1 PRINT/E XTERNA L (NON-INTERFAC ED LABS) Microalbumin/Crea tinine Ratio 12 PRINT/EXTERNA L (NON-INTERFAC ED LABS) Urine specimen (specimen) 10/21/2019 11:32 AM CDT Narrative PRINT/EXTERNAL (NON-INTERFACED LABS) - 10/21/2019 2:04 PM CDT [facility] [address] [place] [phone] [place] Jeyson Bishop MD LAB URINE ORDERABLES Fi nal Result PRINT/EXTERNAL (NON-INTERFACED LABS) * Renal function panel (10/21/2019 11:32 AM CDT) Glucose 83 mg/dL PRINT/EXTE RNAL (NON-INTERFACE D LABS) BUN 12 mg/dL PRINT/EXTE RNAL (NON-INTERFACE D LABS) Creatinine 1.0 mg/dL PRINT/EXT ERNAL (NON-INTERFACE D LABS) Sodium 141 mEq/L PRINT/EXTE RNAL (NON-INTERFACE D LABS) Potassium 3.7 mEq/L PRINT/EXTE RNAL (NON-INTERFACE D LABS) Chloride 105 PRINT/EXTE RNAL (NON-INTERFACE D LABS) Carbon Dioxide 26 mmol/L PRINT /EXTERNAL (NON-INTERFACE D LABS) Calcium 10.1 mg/dL PRINT/EXTE RNAL (NON-INTERFACE D LABS) Phosphorus, Serum 2.6 mg/dL PRINT/EXTERNAL (NON-INTERFACE D LABS) Albumin (Blood) 4.4 g/dL PRIN T/EXTERNAL (NON-INTERFACE D LABS) eGFR Non-Afr Israeli 58.2 PRINT/EXTERNAL (NON-INTERFACE D LABS) eGFR 71 PRINT/EXTERNAL (NON-INTERFACE D LABS) Blood specimen (specimen) 10/21/2019 11:32 AM CDT Narrative PRINT/EXTERNAL (NON-INTERFACED LABS) - 10/21/2019 2:04 PM CDT [facility] [address] [place] [phone] [place] Jeyson Bishop MD LAB BLOOD ORDERABLES Fi nal Result PRINT/EXTERNAL (NON-INTERFACED LABS) documented in this encounter Visit Diagnoses Diagnosis Chronic kidney disease stage 3 (HCC) documented in this encounter Care Teams Stull Installer Relationship Specialty Start Date End Date Anh Ag FNP [address] [place] [address] PCP - General Nurse Practitioner 10/02/23 documented as of this encounter
--- OUTSIDE RECORDS SUMMARY | 2025-03-31 16:49 | XMS_ITS | Clinical Summary ---
Author Organization [facility] Address [address] [place] [address] Care Team Providers Care Compliance Investigator Name Role Phone Unavailable Primary Care Provider Unavailabl e Allergies No known active allergies Medications cetirizine (ZyrTEC) 10 mg tablet Take 10 mg by mouth 1 time daily as needed. 01/26/20 21 Active buPROPion HCL (WELLBUTRIN XL) 150 mg Extended Release 24 hour tablet Take 150 mg by mouth daily in the morning. 09/20/19 25 Active clonazePAM (KlonoPIN) 1 mg tablet Take 1 mg by mouth 2 times daily as needed for Anxiety. Active fluticasone propionate (FLONASE) 50 mcg/spray [place], Suspension nasal inhaler Administer 2 Sprays in each nostril 1 time daily as needed. 04/13/20 21 Active furosemide (LASIX) 40 mg tablet Take 80 mg by mouth daily. States does 40 mg daily & an additional 40 mg prn swelling 10/27/19 21 Active montelukast (SINGULAIR) 10 mg tablet Take 10 mg by mouth daily. 04/05/20 21 Active lamoTRIgine (LaMICtal) 100 mg tablet Take 100 mg by mouth daily at bedtime. Active phentermine (ADIPEX P) 37.5 mg tablet Take 37.5 mg by mouth daily before breakfast. 09/26/19 25 Active orphenadrine (NORFLEX) 100 mg Extended Release tablet Take 100 mg by mouth 2 times daily as needed for Spasm. 11/18/19 23 Active rOPINIRole (REQUIP) 2 mg Tablet Take 2 mg by mouth daily at bedtime. 03/11/20 21 Active sertraline (ZOLOFT) 50 mg tablet Take 50 mg by mouth daily. Active SUMAtriptan (IMITREX) 6 mg/0.5 mL Pen Injector Inject 6 mg by subcutaneous injection one time only. PRN Migrains Active traZODone (DESYREL) 100 mg tablet Take 100 mg by mouth daily at bedtime. 09/26/19 24 Active ubrogepant (Ubrelvy) 50 mg tablet Take 50 mg by mouth. 07/31/19 24 Active rimegepant (Nurtec ODT) 75 mg Tablet, Rapid Dissolve Nurtec ODT 75 mg disintegrating tabletTake 1 tablet by mouth every other day for 30 days to prevent migraines 07/18/19 24 Active metoprolol tartrate (LOPRESSOR) 25 mg tablet Take 25 mg by mouth 2 times daily. 04/17/20 23 Active allopurinoL (ZYLOPRIM) 100 mg tablet Take 100 mg by mouth daily. Active albuterol (PROVENTIL,DANK BLAISE) 2.5 mg /3 mL (0.083 %) Solution for Nebulization 2.5 mg by See Admin Instructions route see administration instructions. 10/26/19 22 Active tamsulosin (FLOMAX) 0.4 mg capsuleIndicatio ns:Nephrolithias is Take 1 Capsule (0.4 mg) by mouth daily at bedtime. 30 Capsule 1 10/31/19 25 Active oxyCODONE (ROXICODONE) 5 mg tabletIndication s:Kidney stone Take 1 Tablet (5 mg) by mouth every 6 hours as needed for Pain (post surgical pain). Max Daily Amount: 20 mg 21 Tablet 5 1:23 PM CDT 11/20/19 25 Active oxyBUTYnin (DITROPAN XL) 10 mg Extended Release 24 hour tablet Take 1 Tablet (10 mg) by mouth 1 time daily as needed (bladder spasms). 30 Tablet 5 1:23 PM CDT 11/20/19 25 Active ketorolac tromethamine (TORADOL) 10 mg tablet Take 1 Tablet (10 mg) by mouth every 6 hours as needed for Pain. 21 Tablet 5 1:23 PM CDT 11/20/19 25 Active naloxone (NARCAN) 4 mg/spray [place], Non-Aerosol EMERGENCY USE ONLY: Administer 1 spray (4 mg) in one nostril one time. May repeat in alternating nostrils every 2-3 min until responsive or EMS arrives. 2 Each 3 11/20/19 25 Active Active Problems No known active problems Encounters Date Type Department Care Team Description 01/30/2025 11:30 AM CDT Office Visit [facility] [address] [place] [id number] Christie Mora FNP History of nephrolithiasis (Primary Dx) 01/21/2025 External Device Data STL ABSTRACTION Provider, Abstract 01/01/2025 External Device Data STL ABSTRACTION Provider, Abstract 12/31/2024 External Device Data STL ABSTRACTION Provider, Abstract from Last 3 Months Immunizations Immunization Administration Dates Next Due Influenza Seasonal Unspecified Formulation IM ,05/24/2021 PNEUMOVAX (PPSV23) pneumococ celina polysaccharide 23-valent Vaccine 05/24/2021 Td(adult) Unspecified Formulation 11/08/2022 Zoster Vaccine Live SQ 11/08/2022 Social History Tobacco Use Types Packs/Day Years Used Date Smoking Tobacco: Never Smokeless Tobacco: Never Tobacco Cessation:Counseling Given: No Alcohol Use Standard Drinks/Week Comments Not Currently 0 (1 standard drink = 0.6 oz pur e alcohol) Maybe on News Years only Feeling Safe Answer Date Recorded Are you in a relationship wi th someone who hurts you emotionally and/or physically? No 11/19/2024 Food Insecurity Answer Date Recorded Patient needs follow up regardin 11/14/2024 Transportation Needs Answer Date Record ed Patient needs follow up regardin 11/14/2024 Utility Needs Answer Date Recorded Patient needs follow up regardin 11/14/2024 Comments Unknown Sex and Gender Information Value Date Recorded Sex Assigned at Female 01/14/2025 7:37 PM CDT Legal Sex Female 11:09 PM PARAFFINER Gender Identity Female 01/14/2025 7:37 PM CDT Sexual Orientation Straight 01/14/2025 7: 37 PM CDT Last Filed Vital Signs Vital Sign Reading Time Taken Comments Blood Pressure 128/76 11/19/2024 12:17 PM CDT Pulse 60 11/19/2024 12:17 PM CDT Temperature 36.2 C (97.2 F) 11/19/2024 12:17 PM CDT Respiratory Rate 18 11/19/2024 12:17 PM CDT Oxygen Saturation 100% 11/19/2024 12:17 PM CDT Inhaled Oxygen Concentration - - Weight 61.3 kg (135 lb 2.3 oz) 11/19/2024 7:00 A M CDT Height 156.2 cm (5' 1.5 ) 11/19/2024 7:00 AM CDT Body Mass Index 25.12 11/19/2024 7:00 AM CDT Plan of Treatment Health Maintenance Due Date Last Done Comments Pre-Diabetes and Diabetes Screening 1965 HEPATITIS B VACCINES (1 of 3 - 19+ 3-dose series) 1985 HPV/Cotest (21-29) 11/08/1987 CERVICAL CANCER SCREENING 1996 HPV/Cotest (30-65) 1996 PAP SMEAR 1996 BREAST CANCER SCREENING 2006 COLORECTAL SCREENING 11/08/2011 Colorectal Cancer Screening 11/08/2011 FIT-DNA Q 3 years 11/08/2011 FIT/FOBT Q 1 year 11/08/2011 Flex Sig/CT Colonography Q 5 years 11/08/2011 DTAP/TDAP/TD VACCINES (1 - Tdap) 11/09/2022 11/09/19 ZOSTER VACCINE (2 of 3) 01/03/2023 11/08/2022 INFLUENZA VACCINE (#1) 2025 04/11/2023, 2020 COVID-19 Vaccine (3 - 2024- season) 02/17/202503/2021, 09/28/2020 Medical Devices Implanted Type Area Weigh Boss Device Identifier Shelf Expiration Date Model / Serial / Lot Stent Percuflex+ 4.8fr 26cm [id number] - [id number] Implanted:Qty: 1 on 11/19/2024 by Kai Dyer MD at [facility] Stent Right: Ure[employer] REP [id number] 06/25/2027 [id number] Description:string on stent secured with tegaderm. Insurance OLGA Horan [id number] [facility] [place] [facility] Address: [address] [address] OLGA Horan [id number] [employer] Medicare Part D
--- OUTSIDE RECORDS SUMMARY | 2025-03-31 16:49 | XMS_ITS | Clinical Summary ---
Author Organization [facility] Facility Address [address] [address] Care Team Providers Care [place] Supervisor Name Role Phone AncelmoRyandeidra KASPERP Primary Care Provider [phone] Allergies No known active allergies Medications montelukast (SINGULAIR) 10 MG tablet Take 1 tablet by mouth 1 (one) time each day Active lamoTRIgine (LaMICtal) 100 MG tablet Take 1 tablet by mouth every night 10/17/19 19 Active fluticasone (FLONASE) 50 MCG/ACT nasal spray Administer 2 sprays into each nostril 1 (one) time each day 10/16/19 19 Active FLUoxetine (PROzac) 20 MG capsule Take by mouth 1 (one) time each day 10/17/19 19 Active clonazePAM (KlonoPIN) 0.5 MG tablet Take 1 tablet by mouth 2 (two) times a day 2 10/12/19 19 Active rOPINIRole (REQUIP) 2 MG tablet 2 mg Take 2 tablets every night Active traZODone (DESYREL) 100 MG tablet Take 50 mg by mouth every night PRN only Active allopurinol (ZYLOPRIM) 100 MG tablet Take 100 mg by mouth 1 (one) time each day Active rOPINIRole (REQUIP) 1 MG tablet Take 1 mg by mouth every morning Active cetirizine (ZyrTEC) 10 MG tablet Take 10 mg by mouth 1 (one) time each day 01/28/20 23 Active SUMAtriptan (Imitrex) 50 MG tablet 1 tab(s) po prn for migraine, may repeat dose every 2 hr, max 200mg/day Oral for 30 08/17/19 08 Active amoxicillin (AMOXIL) 500 MG capsule Take 500 mg by mouth in the morning and 500 mg at noon and 500 mg in the evening. Active Mouthwashes (BL ANTISEPTIC MOUTH WASH MT) Use in the mouth or throat Active furosemide (LASIX) 40 MG tabletIndicati ons:Stage 3a chronic kidney disease (HCC) Take 2 tablets by mouth once daily 180 tablet 03/10/20 25 Active furosemide (LASIX) 40 MG tabletIndicati ons:Stage 3a chronic kidney disease (HCC) Take 2 tablets by mouth once daily 180 tablet 12/20/19 25 025 Discontinued Active Problems Problem Noted Date Diagnosed Date Chronic kidney disease, stage 2 (mild) 4 Stage 3a chronic kidney disease 11/03/2018 Encounters Date Type Department Care Team Description 03/09/2025 Refill [facility] [address] [facility] [address] [place] [address] Madiha Irizarry NP Stage 3a chronic kidney disease (HCC) from Last 3 Months Family History Medical History Relation Comments Gout Father 2 Hypertension Father 2 Cancer Mother 2 Relation Status Comments Father 1 Alive Father 2 Mother 1 Mother 2 Social History Tobacco Use Types Packs/Day Years Used Date Smoking Tobacco: Never Smokeless Tobacco: Never Tobacco Cessation:Counseling Given: Not Answered Alcohol Use Standard Drinks/Week Comments Not Currently 0 (1 standard drink = 0.6 oz pur e alcohol) Comments Unknown Sex and Gender Information Value Date Recorded Sex Assigned at Female 10/30/2019 2:05 AM EDT Legal Sex Female 12:47 PM EST Gender Identity Female 10/30/2019 2:05 AM EDT Sexual Orientation Straight 10/30/2019 2: 05 AM EDT Last Filed Vital Signs Vital Sign Reading Time Taken Comments Blood Pressure 108/64 04/17/2024 11:24 AM CDT Pulse 68 04/17/2024 11:24 AM CDT Temperature 36.1 C (97 F) 07/09/2020 8:53 AM THREAD LASTER Respiratory Rate - - Oxygen Saturation - - Inhaled Oxygen Concentration - - Weight 62.8 kg (138 lb 6.4 oz) 04/17/2024 11:24 AM CDT Height 156.2 cm (5' 1.5 ) 04/17/2024 11:24 AM CD T Body Mass Index 25.73 04/17/2024 11:24 AM CDT Plan of Treatment Upcoming Encounters Date Type Department Care Team (Late st Contact Info) Description 04/22/2025 10:20 AM THREAD LASTER Office Visit [facility] [address] [place] [phone] Aicha Ortiz MD [address] [place] [address] Health Maintenance Due Date Last Done Comments Breast Cancer Screening 1965 Hepatitis B Vaccine (1 of 3 - 19+ 3-dose series) 11/07 Colorectal Cancer Screening: Annual FOBT 11/08/2015 Colorectal Cancer Screening: Colonoscopy 11/08/2015 Colorectal Cancer Screening: Sigmoidoscopy 11/08/2015 Pneumococcal Vaccine: 50+ Years (2 of 2 - PCV) 022 05/24/2021 Influenza Vaccine (#1) 2025 Pneumococcal Vaccine: Peds ( 0 to 5 Years) and At-Risk Patients (6 to 49 Years) Discontinued 05/24/2021 Insurance [employer] Medicare Care Teams Stock [place] Supervisor Relationship Specialty Start Date End Date Anh Ag FNP [address] [place], [place] [id number] PCP - General Nurse Practitioner 10/02/23
--- NOTE | 2025-03-31 17:18 | W.ED.NECK ---
HPI - Neck Pain/Injury General: Chief Complaint: Neck Pain/Injury Stated Complaint: need a CT Time Seen by Provider: 03/31/25 16:56 Source: patient Mode of arrival: ambulatory Limitations: no limitations History of Present Illness: Patient is a 59-year-old female with past medical history of psychiatric care, chronic low back pain who presents the emergency department planing of neck pain. States that she rode a roller coaster at an amusement park on Monday, and has had severe left-sided neck pain since. States that she cannot take muscle relaxers due to her restless leg. Says that her primary care told her to come to the ED for imaging but does not specify in this. There is no direct trauma reported, no neurological symptoms reported. Denies headache. Denies radiation to the arms. States that she had to hold her own head up due to the pain, states this has improved and she has full range of motion at this time. She took 500 mg Tylenol and Klonopin prior to come to the ED. States that her spine surgeon is in [place]. Vital stable at this time, no neurodeficit. MD complaint: neck pain Onset (ago): day(s) (2) Exacerbating factors: movement of neck Associated symptoms: Denies headache(s) or nausea Related Data Home Medications ?Medication ?Instructions ?Recorded ?Confirmed allopurinol 100 mg tablet 100 mg PO QPM 10/29/19 03/11/25 sumatriptan succinate 6 mg/0.5 mL See Rx Instructions .Route .COMPLEX 12/02/20 03/11/25 subcutaneous pen injector (Imitrex STATdose Pen) fluticasone propionate 50 2 spray intranasal DAILY PRN 05/17/21 03/11/25 mcg/actuation nasal allergies spray,suspension ropinirole 1 mg tablet 1 mg PO QAM 05/17/21 03/11/25 ropinirole 2 mg tablet 2 mg PO QPM 05/17/21 03/11/25 furosemide 40 mg tablet (Lasix) 40 mg PO QAM PRN Edema 04/13/23 03/11/25 Previous Rx's ?Medication ?Instructions ?Recorded lamotrigine 100 mg tablet 100 mg PO BEDTIME #30 tabs 10/08/24 (Lamictal) clonazepam 1 mg tablet 1 mg PO BID PRN anxiety #60 tabs 02/10/25 estradiol 1 mg tablet 1.5 mg (1.5 x 1 mg) PO DAILY #90 03/11/25 tabs Allergies Allergy/AdvReac Type Severity Reaction Status Date / Time No Known Allergies Allergy Verified 03/31/25 16:53 Review of Systems General: Reports: 10 or more systems reviewed and unremarkable except in HPI and below Const: Denies: fever(s), chills or fatigue Eyes: Denies: change in vision ENMT: Denies: throat pain, ear or mastoid pain or nasal discharge Card: Denies: chest pain, palpitations, swelling of feet/ankles or lightheadedness Resp: Denies: dyspnea, productive cough or wheezing GI: Denies: abdominal pain, nausea, vomiting, diarrhea or constipation : Denies: flank pain, difficulty voiding, dysuria or urinary frequency Musc: Reports: neck pain and limited range of motion (neck); Denies: back pain or joint pain Skin/Breast: Denies: rash Neuro: Denies: headache(s), numbness in extremities or weakness in extremities PFSH ED PFSH: Medical History Psychiatric care Hypoglycemia Troponin level elevated PTSD (post-traumatic stress disorder) Gastric polyp Hyperlipidemia Gout Stage 3 chronic kidney disease Hypothyroidism In past. PTSD (post-traumatic stress disorder) Generalized anxiety disorder Dependent personality disorder Obsessive-compulsive disorder, unspecified Surgical History Hx of breast implants, bilateral 02/05/[address] [facility] [address] Dennis Hx of esophagogastroduodenoscopy (~2020) Hx of colonoscopy (~2020) History of removal of retained hardware (12/12/12) Right shoulder. Performed by Dr. Hossein Ortiz at [facility] in [place], [place]. History of removal of retained hardware (04/26/11) With open reduction and internal fixation of Rt clavicle. Performed by Dr. Hossein Ortiz at [facility] in [place], [place]. History of open reduction and internal fixation (ORIF) procedure (10/11/10) Right clavicle. Performed by Dr. Monroe at [facility] in [place], [place] History of prolapse of bladder (~2008) bladder mesh S/P laparoscopic assisted vaginal hysterectomy (LAVH) (01/21/08) With anterior repair. Performed by Dr. Bueno at [facility] in [place], [place] History of suburethral sling procedure (08/29/07) Anterior vaginal repair & transobturator suburethral sling; Dx: Cystocele, BRANDEN. Performed by Dr. Rosenberg at [facility] in [place], [place]. Hx of bilateral breast reduction surgery (~2002) S/P laparoscopic cholecystectomy (~1996) Performed at [facility] in [place], [place] History of tubal ligation (~1996) Hx of ectopic (~1986) Laparoscopic treatment of ectopic History of carpal tunnel surgery Both, Left wrist twice, right wrist once History of axillary surgery (~03/2016) Exploratory left armpit surgery. Performed by Dr. Chen at [facility] in [place], [place]. Family History Brother Hypertension Heart disease Colon cancer Father Hypertension Grandmother Diabetes Maternal Heart disease Maternal Unknown No problems noted. Mother Cancer leukemia, hodgkins Grandfather Cancer lung cancer, maternal Social History Smoking and tobacco/nicotine status: never used tobacco/nicotine Alcohol intake: current Alcohol intake frequency: holidays/special occasions only Substance/Drug Use: never Physical Exam Const: COMMON NORMALS: no acute distress, patient oriented x3, no limitations, healthy appearing, alert and well nourished HENMT: COMMON NORMALS: normocephalic and atraumatic HEAD & SCALP: normocephalic and atraumatic Neck/C-Spine: OTHER: Full range of motion of the neck. Tender to palpation to left lateral neck muscles, specifically on the left sternocleidomastoid. She has some tenderness to the cervical spine with no step-off deformity. Resp: COMMON NORMALS: normal respiratory effort, No use of accessory muscles and clear to auscultation bilaterally AUSCULTATION: clear to auscultation bilaterally Cardio: COMMON NORMALS: regular rate and regular rhythm RATE: regular rate RHYTHM: regular rhythm Extremity: COMMON NORMALS: normal to inspection, full ROM, capillary refill normal, no joint enlargement and no clubbing, cyanosis or edema Neuro: COMMON NORMALS: patient oriented x3, moves all extremities, no focal motor deficits and no sensory deficits noted SENSORIUM/ORIENTATION: Yes alert Skin: COMMON NORMALS: no rashes or lesions noted GENERAL SKIN EXAM: no rashes or lesions noted Course Vital Signs: Vital signs: Vital Signs Temperature 97.4 F L 03/31/25 16:46 Pulse Rate 64 03/31/25 18:08 Respiratory Rate 16 03/31/25 18:08 Blood Pressure 114/73 03/31/25 18:08 Pulse Oximetry 100 03/31/25 18:08 Oxygen Delivery Me thod Room Air 03/31/25 16:46 MDM - Neck Pain/Injury Medical Decision Making This patient presented for left lateral neck pain, which began after she rode a roller coaster ride 2 days prior. No neurological symptoms were reported, she states that she was here because her primary care told her to come for imaging. She already sees adult health clinical nurse specialist in [place] due to her history of lumbar back pathology. She had no radiation of pain to her arms, there was some mild reproducible tenderness palpation of the cervical spine though she did not report any direct trauma, she has no visual changes, and there are no concerning features that would warrant x-ray or CT imaging at this time. She is administered medications for her symptoms, she notes relief and ultimately she will be discharged home as there is no emergent process suspected. Being that she already has follow-up availability with adult health clinical nurse specialist, I did encourage her to follow-up with them if she continues to have symptoms persist, as I believe that this is simply a myofascial cervical strain. She agrees with this plan, she will return if she has worsening of symptoms. No radiology studies performed this visit Discharge Plan Discharge Patient Disposition: Home Clinical Impression: Acute cervical myofascial strain Condition: Stable Prescriptions: No Action allopurinol 100 mg tablet 100 mg PO QPM sumatriptan succinate [Imitrex STATdose Pen] 6 mg/0.5 mL pen injector See Rx Instructions .ROUTE .COMPLEX Rx Instructions: one pen subcutaneously as a single dose as directed prn estradiol 1 mg tablet 1.5 mg PO DAILY Qty: 90 1RF Rx Instructions: TAKE 1 AND A HALF TABS DAILY Lamictal 100 mg tablet 100 mg PO BEDTIME Qty: 30 2RF clonazepam 1 mg tablet 1 mg PO BID PRN (Reason: anxiety) Qty: 60 2RF ropinirole 1 mg tablet 1 mg PO QAM ropinirole 2 mg tablet 2 mg PO QPM fluticasone propionate 50 mcg/actuation spray,suspension 2 spray INTRANASAL DAILY PRN (Reason: allergies) furosemide [Lasix] 40 mg tablet 40 mg PO QAM PRN (Reason: Edema) Discharge Orders: Discharge ED (Routine); Ordered 03/31/25 Ordered By: Arnol Anthony Referrals: Anh Ag FNP [Primary Care Provider, Family Practice] Patient Instructions: Patient Portal & [place] Instructions Activity Restrictions/Additional Instructions: Acute Neck Strain Discharge Diagnosis: Acute cervical myofascial strain (neck muscle injury) after roller coaster ride. No signs of serious spine injury. What to Expect: Most neck muscle strains improve within a few weeks. Mild pain, stiffness, and soreness are common. Symptoms should gradually get better with home care. Home Care Instructions: - Activity: Stay active as tolerated. Gentle movement and light daily activities are encouraged. Avoid prolonged bed rest or immobilization. - Heat or Ice: Apply a cold pack to the neck for 15-20 minutes every few hours for the first 48 hours to reduce pain and swelling. After 48 hours, you may use a warm pack to help relax muscles. - Exercise: Begin gentle neck stretches and [id number] exercises as comfort allows. Gradually increase activity. Avoid sudden or forceful neck movements. - Posture: Maintain good posture, especially when sitting or using electronic devices. Use a supportive pillow at night. Medications: - Pain Relief: You may use acetaminophen (Tylenol) or a nonsteroidal anti-inflammatory drug (NSAID) such as ibuprofen or naproxen as needed for pain, unless you have a medical reason not to take these (such as stomach ulcers, kidney problems, or allergies). Follow package instructions for dosing - Muscle Relaxants: Do not use muscle relaxants due to your history of restless leg syndrome. Other Treatments: - Massage: Gentle massage may help relieve muscle tension. - Physical Therapy: If pain persists beyond 2-4 weeks or limits daily activities, consider seeing a physical therapist for supervised exercise and mobilization. When to Seek Medical Attention: - Severe pain not relieved by medication - Numbness, tingling, or weakness in arms or legs - Loss of bladder or bowel control - Fever, chills, or unexplained weight loss Follow-Up: Schedule a follow-up appointment if symptoms do not improve within 2-4 weeks or sooner if you have concerns. Special Note: Avoid medications that may worsen restless leg syndrome. If you notice new or worsening leg symptoms, notify your healthcare provider. Questions: If you have any questions or concerns, contact your healthcare provider. Print Language: Turkmen Coding Level of Care Code ED Clinical Athletic Instructor for Carissa Rocha
[2025-03-31] MEDS: HYDROcodone-acetaminophen 7.5-325 mg Tablet 1 TAB PO (17:35)
[2025-03-31 17:48] VITALS: BP 106/70
[2025-03-31 18:08] VITALS: BP 114/73; PULSE 64; RESP 16; O2SAT 100
== END 2025-03-31 18:09 | disposition home or self-care (01) ==
PROVIDERS: Emergency Provider Physician Assistant; PCP Nurse Practitioner Family
DX: S16.1XXA Strain of muscle, fascia and tendon at neck level, initial encounter (principal); X58.XXXA Exposure to other specified factors, initial encounter
CPT/HCPCS: 96372; 99284; J1100; J1885; J9999; Q0162

== ENCOUNTER 2025-04-15 12:28 | Outpatient (CLI) | payer MEDICARE, SELFPAY ==
[2025-04-15 13:35] LABS: Hematocrit 40.8 % (36-47); Hemoglobin 13.00 g/dL (11.27-16.99); Mean Corpuscular HGB Conc 31.9 g/dL (30-55); Mean Corpuscular Hemoglobin 29.9 pg (27-33); Mean Corpuscular Volume 93.8 fl (85-98); Nucleated Red Blood Cells % 0 %; Platelet Count 315 10^3/cmm (157-399); Red Blood Count 4.35 10^6/uL (3.85-5.65); White Blood Count 7.80 10^3/uL (3.29-11.43)
[2025-04-15 13:58] LABS: Albumin Level 4.6 g/dL (3.5-5.2); Anion Gap 13.7 (5-19); Blood Urea Nitrogen 22 mg/dL (6-20); Calcium 9.4 mg/dL (8.5-10.5); Carbon Dioxide 28 mmol/L (22-29); Chloride 102 mmol/L (98-107); Glucose 92 mg/dL (65-115); Potassium 3.7 mmol/L (3.5-5.1); Sodium 140 mmol/L (136-145)
[2025-04-15 13:59] LABS: Calcium 9.5 mg/dL (8.5-10.5)
[2025-04-15 14:05] LABS: Creatinine Urine, Random 270 mg/dL (28-217); Microalbum Creatinine Ratio Ur 7 mg/dL (0-20)
== END 2025-04-15 12:29 | disposition home or self-care (01) ==
PROVIDERS: PCP Nurse Practitioner Family; Visit Provider Registered Nurse
DX: N18.2 Chronic kidney disease, stage 2 (mild) (principal)
CPT/HCPCS: 36415; 80069; 82044; 82310; 83970; 85025